=== PATIENT | male | born 1965 | race Caucasian/White ===

== ENCOUNTER 2018-08-31 14:49 | Observation (INO) | payer OTHER ==
[2018-08-31] MEDS ORDERED: NITROGLYCERIN OINT 1 INCH/GM PACKET TOPICAL STA (14:57)
--- NOTE | 2018-08-31 15:02 | ED ---
General Adult HPI - General Stated complaint: Chest pain Time Seen by Provider: 08/31/18 14:50 Source: RN notes reviewed - History of Present Illness Initial comments: This is a 53-year-old male with a past medical history significant for PA with stents, hypertension and a smoking history. Patient states he continues to smoke. Patient comes in today complaining of a 2 hour history of chest pain that radiated up into his left shoulder and down his left arm. Patient states she took nitroglycerin home and it did improve the pain but the pain was different than his normal chest pain was much more significant and he became v trung sweaty with it. Patient also states he short of breath with it. Patient states he got into the emesis a gave more aspirin and nitroglycerin and his pain is completely resolved at this time. Patient denies any palpitations. Patient denies any recent fever chills or cough per patient denies any lightheadedness dizziness or near syncopal episode. Patient denies headache patient denies numbness weakness. Patient denies abdominal pain patient denies nausea vomiting diarrhea. Patient denies any calf tenderness or leg swelling. - Related Data Allergies Allergy/AdvReac Type Severity Reaction Status Date / Time No Known Allergies Allergy Verified 08/31/18 15:11 Review of Systems ROS Statement: Those systems with pertinent positive or pertinent negative responses have been documented in the HPI. ROS Other: All systems not noted in ROS Statement are negative. General Exam - General Exam Comments Initial Comments: GENERAL: Patient is well-developed and well-nourished. Patient is nontoxic and well-hyd rated and is in no acute distress. ENT: Neck is soft and supple. No significant lymphadenopathy is noted. Oropharynx is clear. Moist mucous membranes. Neck has full range of motion without elicit ing any pain. EYES: The sclera were anicteric and conjunctiva were pink and moist. Extraocular m ovements were intact and pupils were equal round and reactive to light. Eyelids were unremarkable. PULMONARY: Unlabored respirations. Good breath sounds bilaterally. No audible rales rhonchi or wheezing was noted. CARDIOVASCULAR: There is a regular rate and rhythm without any murmurs gallops or rubs. ABDOMEN: Soft and nontender with normal bowel sounds. SKIN: Skin is clear with no lesions or rashes and otherwise unremarkable. NEUROLOGIC: Patient is alert and oriented x3. Cranial nerves II through XII are grossly intact. Motor and sensory are also intact. Normal speech, volume and content. Symmetrical smile. MUSCULOSKELETAL: Normal extremities with adequate strength and full range of motion. No lower extremity swelling or edema. No calf tenderness. LYMPHATICS: No significant lymphadenopathy is noted PSYCHIATRIC: Normal psychiatric evaluation. Course Vital Signs 08/31/18 15:04 Temperature 98.3 F Pulse Rate 64 Respiratory 18 Rate Blood Pressure 120/78 O2 Sat by Pulse 100 Oximetry Medical Decision Making - Medical Decision Making EKG shows sinus bradycardia 55 bpm CO interval 152 QRS is 94 Q-T intervals 492 QTC is 470. Patient's EKG shows no ST segment elevation or depression or T wave abnormalities are noted. This patient was a transfer from [facility] for unstable angina however the call ever came to do Dr. even though the physician at Hospital thought there was talking to a physician they did not so I did speak with the vision at the hospital and got an update on the patient. - Lab Data Result diagrams: 08/31/18 15:00 08/31/18 15:00 Lab Results 08/31/18 08/31/18 08/31/18 Range/Units 15:00 15:00 15:00 WBC 9.0 (3.8-10.6) k/uL RBC 4.22 L (4.30-5.90) m/uL Hgb 13.7 (13.0-17.5) gm/dL Hct 41.8 (39.0-53.0) % MCV 99.0 (80.0-100.0) fL MCH 32.6 (25.0-35.0) pg MCHC 32.9 (31.0-37.0) g/dL RDW 14.5 (11.5-15.5) % Plt Count 250 (150-450) k/uL Neutrophils % 70 % Lymphocytes % 21 % Monocytes % 6 % Eosinophils % 2 % Basophils % 0 % Neutrophils # 6.3 (1.3-7.7) k/uL Lymphocytes # 1.9 (1.0-4.8) k/uL Monocytes # 0.5 (0-1.0) k/uL Eosinophils # 0.2 (0-0.7) k/uL Basophils # 0.0 (0-0.2) k/uL PT 10.1 (9.0-12.0) sec INR 0.9 (<1.2) APTT 24.0 (22.0-30.0) sec Sodium 140 (137-145) mmol/L Potassium 4.0 (3.5-5.1) mmol/L Chloride 110 H (98-107) mmol/L Carbon Dioxide 25 (22-30) mmol/L Anion Gap 5 mmol/L BUN 7 L (9-20) mg/dL Creatinine 0.53 L (0.66-1.25) mg/dL Est GFR (CKD-EPI)AfAm >90 (>60 ml/min/1.73 sqM) Est GFR (CKD-EPI)NonAf >90 (>60 ml/min/1.73 sqM) Glucose 85 (74-99) mg/dL Calcium 8.7 (8.4-10.2) mg/dL Magnesium 2.1 (1.6-2.3) mg/dL Total Bilirubin 1.2 (0.2-1.3) mg/dL AST 33 (17-59) U/L ALT 22 (21-72) U/L Alkaline Phosphatase 59 (38-126) U/L Troponin I (0.000-0.034) ng/mL Total Protein 6.6 (6.3-8.2) g/dL Albumin 4.0 (3.5-5.0) g/dL 08/31/18 Range/Units 15:00 WBC (3.8-10.6) k/uL RBC (4.30-5.90) m/uL Hgb (13.0-17.5) gm/dL Hct (39.0-53.0) % MCV (80.0-100.0) fL MCH (25.0-35.0) pg MCHC (31.0-37.0) g/dL RDW (11.5-15.5) % Plt Count (150-450) k/uL Neutrophils % % Lymphocytes % % Monocytes % % Eosinophils % % Basophils % % Neutrophils # (1.3-7.7) k/uL Lymphocytes # (1.0-4.8) k/uL Monocytes # (0-1.0) k/uL Eosinophils # (0-0.7) k/uL Basophils # (0-0.2) k/uL PT (9.0-12.0) sec INR (<1.2) APTT (22.0-30.0) sec Sodium (137-145) mmol/L Potassium (3.5-5.1) mmol/L Chloride (98-107) mmol/L Carbon Dioxide (22-30) mmol/L Anion Gap mmol/L BUN (9-20) mg/dL Creatinine (0.66-1.25) mg/dL Est GFR (CKD-EPI)AfAm (>60 ml/min/1.73 sqM) Est GFR (CKD-EPI)NonAf (>60 ml/min/1.73 sqM) Glucose (74-99) mg/dL Calcium (8.4-10.2) mg/dL Magnesium (1.6-2.3) mg/dL Total Bilirubin (0.2-1.3) mg/dL AST (17-59) U/L ALT (21-72) U/L Alkaline Phosphatase (38-126) U/L Troponin I <0.012 (0.000-0.034) ng/mL Total Protein (6.3-8.2) g/dL Albumin (3.5-5.0) g/dL Disposition Clinical Impression: Unstable angina pectoris Disposition: ADMITTED IP TO THIS HOSP Referrals: Luis Bonilla MD [Primary Care Provider] - 1-2 days Time of Disposition: 16:03
[2018-08-31 15:12] LABS: Basophils % (A) 0 %; Eosinophils # (A) 0.2 k/uL (0-0.7); Eosinophils % (A) 2 %; HCT 41.8 % (39.0-53.0); HGB 13.7 gm/dL (13.0-17.5); Lymphocytes # (A) 1.9 k/uL (1.0-4.8); Lymphocytes % (A) 21 %; MCH 32.6 pg (25.0-35.0); MCHC 32.9 g/dL (31.0-37.0); Mean Platelet Volume 8.6; Monocytes # (A) 0.5 k/uL (0-1.0); Monocytes % (A) 6 %; Neutrophils # (A) 6.3 k/uL (1.3-7.7); Neutrophils % (A) 70 %; Platelet Count 250 k/uL (150-450); RBC 4.22 m/uL (4.30-5.90); RDW 14.5 % (11.5-15.5)
[2018-08-31 15:19] LABS: INR 0.9 (<1.2); Prothrombin Time 10.1 sec (9.0-12.0)
[2018-08-31 15:31] LABS: ALT 22 U/L (21-72); AST 33 U/L (17-59); African American GFR (CKD) >90 (>60 ml/min/1.73 sqM); Alkaline Phosphatase 59 U/L (38-126); Anion Gap 5 mmol/L; Blood Urea Nitrogen 7 mg/dL (9-20); Calcium 8.7 mg/dL (8.4-10.2); Carbon Dioxide 25 mmol/L (22-30); Chloride 110 mmol/L (98-107); Glucose 85 mg/dL (74-99); Magnesium 2.1 mg/dL (1.6-2.3); Sodium 140 mmol/L (137-145); Total Bilirubin 1.2 mg/dL (0.2-1.3); Total Protein 6.6 g/dL (6.3-8.2)
[2018-08-31] MEDS ORDERED: HEPARIN SODIUM,PORCINE 5,000 UNIT/ML 1 ML VIAL IV ONE (16:03)
[2018-08-31] MEDS ORDERED: NITROGLYCERIN SL TABS 0.4 MG TAB SUBLINGUAL PRN (16:04)
[2018-08-31] MEDS ORDERED: HEPARIN SOD,PORK IN 0.45% NACL 25,000 UNIT in 0.45% NACL 1 250ML.BAG IV SCH (16:15)
[2018-08-31] MEDS: NITROGLYCERIN OINT 1 INCH/GM PACKET TOPICAL SCH ×2 (18:32→23:05)
[2018-08-31] MEDS ORDERED: ATORVASTATIN 40 MG TAB PO SCH (21:00)
--- NOTE | 2018-08-31 23:39 | P.HPIM ---
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 Associated with shortness of breath. Pain was radiating to the left shoulder and arm and to the neck. Associated with nausea. Does have s ome dizziness and lightheadedness. No diaphoresis. No source of vomiting. Patient says that he took nitroglycerin at home which did improve the pain. Denied any palpitations. Denied any recent illnesses. No fever no chills. No cough or sputum production. No complaints of abdominal pain. No diarrhea. No dysuria or hematuria. Denied any leg swelling. EKG showed sinus bradycardia. Troponin 2 negative. Review of Systems Constitutional: Patient denies any fever or chills . No generalized weakness or weight loss. Abdomen: Patient denied nausea vomiting and diarrhea and abdominal pain. Cardiovascular: Patient denies any chest pain or short of breath no palpitations. Respiratory: patient denied any cough is from production. No shortness of breath Neurologic: Patient denied any numbness or tingling headache. Musculoskeletal: Patient denies any complaints of joint swelling or deformity. Skin: Negative Psychiatric: Negative Endocrine: No heat or cold intolerance. No recent weight gain. Genitourinary: No dysuria or hematuria. All other 14 point ROS negative except the above Past Medical History Past Medical History: Chest Pain / Angina, COPD, CVA/TIA, Hyperlipidemia, Hypertension, Myocardial Infarction ([place]) History of Any Multi-Drug Resistant Organisms: None Reported Past Surgical History: Heart Catheterization With Stent Additional Past Surgical History / Comment(s): stents placed Past Psychological History: No Psychological Hx Reported Smoking Status: Current every day smoker Past Alcohol Use History: Occasional Past Drug Use History: None Reported Medications and Allergies Home Medications Medication Instructions Recorded Confirmed Type Albuterol Inhaler [Ventolin Hfa 2 puff INHALATION RT-Q4H PRN 08/31/18 08/31/18 History Inhaler] Aspirin EC [Ecotrin Low Dose] 81 mg PO DAILY 08/31/18 08/31/18 History Atorvastatin [Lipitor] 40 mg PO HS 08/31/18 08/31/18 History Clopidogrel [Plavix] 75 mg PO DAILY 08/31/18 08/31/18 History Escitalopram [Lexapro] 10 mg PO DAILY 08/31/18 08/31/18 History Ibuprofen [Motrin] 800 mg PO TID PRN 08/31/18 08/31/18 History Isosorbide Mononitrate ER [Imdur] 60 mg PO DAILY 08/31/18 08/31/18 History Omeprazole 20 mg PO DAILY 08/31/18 08/31/18 History Verapamil HCl 120 mg PO Q12H 08/31/18 08/31/18 History Allergies Allergy/AdvReac Type Severity Reaction Status Date / Time No Known Allergies Allergy Verified 08/31/18 16:29 Physical Exam Vitals: Vital Signs Temp Pulse Resp BP Pulse Ox 08/31/18 15:04 98.3 F 64 18 120/78 100 Intake and Output 08/31/18 08/31/18 08/31/18 06:59 14:59 22:59 Other: Weight 61.235 kg PHYSICAL EXAMINATION: Patient is lying in the bed comfortably, no acute distress, awake alert and oriented.. HEENT: Normocephalic. Neck is supple. Pupils reactive. Nostrils clear. Oral cavity is moist. Ears reveal no drainage. Neck reveals no JVD, carotid bruits, or thyromegaly. CHEST EXAMINATION: Trachea is central. Symmetrical expansion. Lung duong clear to auscultation and percussion. CARDIAC: Normal S1, S2 with no gallops. No murmurs ABDOMEN: Soft. Bowel sounds normal. No organomegaly. No abdominal bruits. Extremities: reveal no edema. No clubbing or cyanosis Neurologically awake, alert, oriented x3 with well-coordinated movements. No focal deficits noted Skin: No rash or skin lesions. Psychiatric: Coperative. Nonsuicidal Musculoskeletal: No joint swelling or deformity. Normal range of motion. Results CBC & Chem 7: 08/31/18 15:00 08/31/18 15:00 Labs: Abnormal Lab Results - Last 24 Hours (Table) 08/31/18 08/31/18 Range/Units 15:00 15:00 RBC 4.22 L (4.30-5.90) m/uL Chloride 110 H (98-107) mmol/L BUN 7 L (9-20) mg/dL Creatinine 0.53 L (0.66-1.25) mg/dL Assessment and Plan Assessment: Unstable angina. History of coronary artery disease and stent placement History of CVA/TIA with mild right upper extremities weakness. Hyperlipidemia Hypertension History of [place] Nicotine addiction and COPD not in exacerbation Occasional alcohol abuse Plan: Patient will be continued on heparin drip. Continue with aspirin and statins. Continue with telemetry monitoring and serial troponins. Cardiology will be consulted. Further recommendations based on the clinical course. Smoking cessation has been counseled extensively. Follow up closely. Time with Patient: Greater than 30
[2018-09-01 02:42] LABS: Cholesterol 134 mg/dL (<200); HDL Cholesterol 77 mg/dL (40-60); LDL Cholesterol,Calculated 39 mg/dL (0-99); Triglycerides 90 mg/dL (<150)
[2018-09-01 07:09] VITALS: RESP 18; TEMP 98.3
[2018-09-01] MEDS ORDERED: PANTOPRAZOLE 40 MG TABLET PO SCH (07:30)
--- NOTE | 2018-09-01 08:28 | P.CRDCN ---
History of Present Illness Consult date: 09/01/18 History of present illness: This is a 53-year-old gentleman with history of ischemic heart disease and previous stent placement about 5 years ago. He claims that he had stent at [facility]. 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 He continued to smoke. He has history of hypertension, hypercholesterolemia. Most of diabetes. Yesterday patient had a chest pain across left side of the chest as if somebody sitting on his chest. The pain went to the left shoulder area and also in the side of his neck. Patient took nitroglycerin at home with some partial relief. Subsequently he went to [facility] and he was transferred here for further evaluation. He was treated with Nitropaste with improvement of his symptoms. His EKGs showed mild T-wave changes in anterior leads. His cardiac enzymes are negative. Patient is given the option of having a cardiac catheterization or a stress test for further evaluation. Patient preferred to have stress test. He was explained the risks and benefits of the procedure. Further recommendations depend upon the findings on the stress test. If the stress test is positive, patient may need cardiac catheterization for definitive diagnosis. Review of Systems REVIEW OF SYSTEMS: CONSTITUTIONAL:. Patient is doing well. No complaints of fever or chills EYES: Denies diplopia, blurring of vision EARS, NOSE, MOUTH, THROAT: Denies headaches, denies sore throat. CARDIOVASCULAR: As per HPI. Patient has history of previous stent placement RESPIRATORY: Denies shortness of breath, denies cough. GASTROINTESTINAL: Denies change in appetite, denies abdominal pain, denies diarrhea GENITOURINARY: Denies hematuria, denies infections. MUSKULOSKELETAL: Denies pain, denies swelling. Denies any cramps or claudication INTEGUMENTARY: Denies rash, denies eczema. NEUROLOGICAL: Denies focal weakness, or visual disturbance. Denies any dizziness or syncope PSYCHIATRIC: Denies anxiety, denies depression. HEMATOLOGIC/LYMPHATIC: Denies any bleeding, denies enlarged lymph nodes. Past Medical History Past Medical History: Chest Pain / Angina, COPD, CVA/TIA, Hyperlipidemia, Hypertension, Myocardial Infarction ([place]) Additional Past Medical History / Comment(s): TIA, Last Myocardial Infarction Date:: 04/2012 History of Any Multi-Drug Resistant Organisms: None Reported Past Surgical History: Heart Catheterization With Stent Additional Past Surgical History / Comment(s): stents placed Past Anesthesia/Blood Transfusion Reactions: No Reported Reaction Date of Last Stent Placement:: 04/2012 Past Psychological History: No Psychological Hx Reported Smoking Status: Current every day smoker Past Alcohol Use History: Occasional Past Drug Use History: None Reported Medications and Allergies Home Medications Medication Instructions Recorded Confirmed Type Albuterol Inhaler [Ventolin Hfa 2 puff INHALATION RT-Q4H PRN 08/31/18 08/31/18 History Inhaler] Aspirin EC [Ecotrin Low Dose] 81 mg PO DAILY 08/31/18 08/31/18 History Atorvastatin [Lipitor] 40 mg PO HS 08/31/18 08/31/18 History Clopidogrel [Plavix] 75 mg PO DAILY 08/31/18 08/31/18 History Escitalopram [Lexapro] 10 mg PO DAILY 08/31/18 08/31/18 History Ibuprofen [Motrin] 800 mg PO TID PRN 08/31/18 08/31/18 History Isosorbide Mononitrate ER [Imdur] 60 mg PO DAILY 08/31/18 08/31/18 History Omeprazole 20 mg PO DAILY 08/31/18 08/31/18 History Verapamil HCl 120 mg PO Q12H 08/31/18 08/31/18 History Allergies Allergy/AdvReac Type Severity Reaction Status Date / Time No Known Allergies Allergy Verified 08/31/18 16:29 Physical Exam Vitals: Vital Signs Temp Pulse Pulse Resp BP BP Pulse Ox 09/01/18 07:08 98.3 F 55 L 18 110/70 99 09/01/18 03:29 98.5 F 58 L 16 117/69 96 08/31/18 23:15 98.2 F 53 L 16 113/66 97 08/31/18 18:03 98.2 F 59 L 18 123/73 98 08/31/18 17:30 63 18 113/65 99 08/31/18 15:04 98.3 F 64 18 120/78 100 Intake and Output 08/31/18 09/01/18 09/01/18 22:59 06:59 14:59 Intake Total 51.926 Balance 51.926 Intake: Intake, IV Titration 51.926 Amount Heparin Sod,Pork in 0.45% 51.926 NaCl 25,000 unit In 0.45 % NaCl 1 250ml.bag @ 12 UNITS/KG/HR 7.348 mls/hr IV .Q24H [facility] Rx#: [id number] Other: # Voids 1 Weight 61.235 kg GENERAL EXAM: Patient is alert and oriented and doesn't appear to be in any acute distress HEENT: Normocephalic. Normal reaction of pupils, equal size, normal range of extraocular motion. No erythema or exudates in the throat. NECK: No masses, no nuchal rigidity. CHEST: No chest wall deformity. LUNGS: Equal air entry with no crackles or wheeze. HEART: S1 and S2 normal. Diminished air exchange ABDOMEN: No hepatosplenomegaly, normal bowel sounds, no guarding or rigidity. SKIN: No rashes CENTRAL NERVOUS SYSTEM: No focal deficits. EXTREMITIES: No cyanosis, clubbing or edema. Results 08/31/18 15:00 08/31/18 15:00 Cardiac Enzymes 08/31/18 08/31/18 08/31/18 Range/Units 15:00 15:00 21:09 AST 33 (17-59) U/L Troponin I <0.012 <0.012 (0.000-0.034) ng/mL 09/01/18 Range/Units 02:16 AST (17-59) U/L Troponin I <0.012 (0.000-0.034) ng/mL Coagulation 08/31/18 08/31/18 09/01/18 Range/Units 15:00 22:39 06:58 PT 10.1 (9.0-12.0) sec APTT 24.0 34.9 H 35.6 H (22.0-30.0) sec Lipids 09/01/18 Range/Units 02:16 Triglycerides 90 (<150) mg/dL Cholesterol 134 (<200) mg/dL HDL Cholesterol 77 H (40-60) mg/dL CBC 08/31/18 Range/Units 15:00 WBC 9.0 (3.8-10.6) k/uL RBC 4.22 L (4.30-5.90) m/uL Hgb 13.7 (13.0-17.5) gm/dL Hct 41.8 (39.0-53.0) % Plt Count 250 (150-450) k/uL Comprehensive Metabolic Panel 08/31/18 Range/Units 15:00 Sodium 140 (137-145) mmol/L Potassium 4.0 (3.5-5.1) mmol/L Chloride 110 H (98-107) mmol/L Carbon Dioxide 25 (22-30) mmol/L BUN 7 L (9-20) mg/dL Creatinine 0.53 L (0.66-1.25) mg/dL Glucose 85 (74-99) mg/dL Calcium 8.7 (8.4-10.2) mg/dL AST 33 (17-59) U/L ALT 22 (21-72) U/L Alkaline Phosphatase 59 (38-126) U/L Total Protein 6.6 (6.3-8.2) g/dL Albumin 4.0 (3.5-5.0) g/dL Current Medications Generic Name Dose Route Start Last Admin Trade Name Freq PRN Reason Stop Dose Admin Aspirin 325 mg 09/01/18 09:00 Aspirin PO DAILY [facility] Atorvastatin Calcium 40 mg 08/31/18 21:00 08/31/18 20:35 Lipitor PO 40 mg HS [facility] Administration Clopidogrel Bisulfate 75 mg 09/01/18 09:00 Plavix PO DAILY [facility] Escitalopram Oxalate 10 mg 09/01/18 09:00 Lexapro PO DAILY [facility] Heparin Sodium/Sodium Chloride 250 mls @ 7.348 mls/hr 08/31/18 16:15 08/31/18 23:45 25,000 unit/ Sodium Chloride IV 15 units/kg/hr .Q24H [facility] 9.185 mls/hr Titration Protocol 12 UNITS/KG/HR Isosorbide Mononitrate 60 mg 09/01/18 09:00 Imdur PO DAILY [facility] Nitroglycerin 0.4 mg 08/31/18 16:04 Nitrostat SUBLINGUAL Q5M PRN Chest Pain Pantoprazole Sodium 40 mg 09/01/18 07:30 Protonix PO AC-BRKFST [facility] Intake and Output 08/31/18 09/01/18 09/01/18 22:59 06:59 14:59 Intake Total 51.926 Balance 51.926 Intake: Intake, IV Titration 51.926 Amount Heparin Sod,Pork in 0.45% 51.926 NaCl 25,000 unit In 0.45 % NaCl 1 250ml.bag @ 12 UNITS/KG/HR 7.348 mls/hr IV .Q24H [facility] Rx#: [id number] Other: # Voids 1 Weight 61.235 kg 08/31/18 15:00 08/31/18 15:00 EKG Interpretations (text) Sinus rhythm with some T-wave changes in anterior leads Assessment and Plan (1) Chest pain Current Visit: Yes Status: Acute Code(s): R07.9 - CHEST PAIN, UNSPECIFIED SNOMED Code(s): 95404736 (2) Ischemic heart disease Current Visit: Yes Status: Acute Code(s): I25.9 - CHRONIC ISCHEMIC HEART DISEASE, UNSPECIFIED SNOMED Code(s): 305834622 (3) Essential hypertension Current Visit: Yes Status: Acute Code(s): I10 - ESSENTIAL (PRIMARY) HYPERTENSION SNOMED Code(s): 43299894 (4) Hypercholesterolemia Current Visit: Yes Status: Acute Code(s): E78.00 - PURE HYPERCHOLESTEROLEMIA, UNSPECIFIED SNOMED Code(s): 86590605 (5) Smoking Current Visit: Yes Status: Acute Code(s): F17.200 - NICOTINE DEPENDENCE, UNSPECIFIED, UNCOMPLICATED SNOMED Code(s): 26354718 Plan: Patient's symptoms are suggestive of possible angina. So far cardiac enzymes have been negative. Patient is given the option of having cardiac catheterization or a stress test. Patient preferred to have stress test. Patient was explained the benefits and risks of each procedure. Further comminution depend upon the clinical course. We'll also get a echocardiogram and a repeat EKG
[2018-09-01] MEDS ORDERED: ISOSORBIDE MONONITRATE ER 60 MG TAB.ER.24H PO SCH (09:00)
[2018-09-01] MEDS ORDERED: ESCITALOPRAM 10 MG TAB PO SCH (09:00)
[2018-09-01] MEDS ORDERED: CLOPIDOGREL 75 MG TAB PO SCH (09:00)
[2018-09-01] MEDS ORDERED: ASPIRIN 325 MG TAB PO SCH (09:00)
--- NOTE | 2018-09-01 10:42 | ECHOF ---
Referral Reason:Chest pain and cardiomyopathy MEASUREMENTS -------- HEIGHT: 167.6 cm WEIGHT: 61.2 kg BP: 110/70 RVIDd: 2.8 cm (< 3.3) IVSd: 1.1 cm (0.6 - 1.1) LVIDd: 4.9 cm (3.9 - 5.3) LVPWd: 0.9 cm (0.6 - 1.1) IVSs: 1.3 cm LVIDs: 3.5 cm LVPWs: 1.5 cm LA Diam: 3.3 cm (2.7 - 3.8) LAESV Index (A-L): 27.23 ml/m Ao Diam: 3.2 cm (2.0 - 3.7) AV Cusp: 2.2 cm (1.5 - 2.6) MV EXCURSION: 15.488 mm (> 18.000) MV EF SLOPE: 53 mm/s (70 - 150) EPSS: 1.4 cm MV E Diaz: 0.97 m/s MV DecT: 194 ms MV A Diaz: 0.96 m/s MV E/A Ratio: 1.01 RAP: 5.00 mmHg RVSP: 24.94 mmHg FINDINGS -------- Sinus rhythm. This was a technically good study. The left ventricular size is normal. There is borderline concentric left ventricular hypertrophy. Overall left ventricular systolic function is normal with, an EF between 55 - 60 %. The right ventricle is normal in size. Normal LA size by volume 22+/-6 ml/m2. The right atrium is normal in size. Interatrial and interventricular septum intact. The aortic valve is trileaflet and appears structurally normal. The mitral valve is normal. Mild tricuspid regurgitation present. Right ventricular systolic pressure is normal at < 35 mmHg. The pulmonic valve was not well visualized. The aortic root size is normal. Normal inferior vena cava with normal inspiratory collapse consistent with estimated right atrial pre ssure of 5 mmHg. There is no pericardial effusion. CONCLUSIONS -------- 1. Sinus rhythm. 2. This was a technically good study. 3. The left ventricular size is normal. 4. There is borderline concentric left ventricular hypertrophy. 5. Overall left ventricular systolic function is normal with, an EF between 55 - 60 %. 6. The right ventricle is normal in size. 7. Normal LA size by volume 22+/-6 ml/m2. 8. The right atrium is normal in size. 9. Interatrial and interventricular septum intact. 10. The aortic valve is trileaflet and appears structurally normal. 11. The mitral valve is normal. 12. Mild tricuspid regurgitation present. 13. Right ventricular systolic pressure is normal at < 35 mmHg. 14. The pulmonic valve was not well visualized. 15. The aortic root size is normal. 16. Normal inferior vena cava with normal inspiratory collapse consistent with estimated right atrial pressure of 5 mmHg. 17. There is no pericardial effusion. MASTER PILOT: Mary Yeung RDCS
[2018-09-01] MEDS ORDERED: AMINOPHYLLINE 500 MG/20 ML VIAL IV PRN (11:03)
[2018-09-01] MEDS ORDERED: CAFFEINE CITRATE 60 MG/3 ML VIAL IV PRN (11:03)
[2018-09-01] MEDS ORDERED: REGADENOSON 0.4 MG/5 ML SYRINGE IV ONE (11:03)
--- NOTE | 2018-09-01 11:50 | EST ---
EXERCISE STRESS DATE OF SERVICE: 09/01/2018 AGE: 53 SEX: Male HT: 66" WT: 135 pounds PROTOCOL: Lexiscan Cardiolite STAGE: DURATION OF EXERCISE: HEART RATE REST: 55 BLOOD PRESSURE REST: 119/70 MAXIMUM HEART RATE ACHIEVED: 85 MAXIMUM BLOOD PRESSURE: 119/70 85% MPHR: 100% MPHR: METS: INDICATIONS: Unstable angina. CLINICAL INFORMATION: Mr. Malone was referred for a stress test from the observation unit. Initially, he underwent an exercise Cardiolite stress test but he was unable to exercise for greater than 6 minutes when he became very dizzy and lightheaded. There was no ECG evidence for ischemia. No arrhythmias were noted. There may have been mild drop in his blood pressure, but no significant changes were noted. Therefore, the stress test was converted to a Lexiscan Cardiolite stress test. Baseline 12-lead ECG showed normal sinus rhythm with normal cardiac intervals. The patient received Lexiscan infusion per protocol. Heart rate and blood pressure remained stable. Nuclear portion of the stress test will be reported separately. There was no evidence for ischemia and no arrhythmias. MMODL / IJN: [id number] /
--- NOTE | 2018-09-01 12:18 | NM ---
EXAMINATION TYPE: NM stress lexiscan cardiolite DATE OF EXAM: 09/01/2018 COMPARISON: NONE HISTORY: Chest pain TECHNIQUE: After the intravenous administration of 9.69 mCi Tc 99m Sestamibi - Cardiolite resting SP ECT images acquired 45 minutes post injection. The patient received 0.4mg Lexiscan, 25.8 mCi Tc 99m Sestamibi - Stress images obtained [address] injection FINDINGS: Review of stress and rest SPECT images demonstrates no distinct perfusion abnormality. Gated analysi s shows normal wall motion with an estimated left ventricular ejection fraction of 58 %. TID is calcu lated within normal limits at 1.0. IMPRESSION: No scintigraphic evidence for reversible ischemia.
[2018-09-01 12:20] VITALS: BP 121/74; PULSE 52
== END 2018-09-01 14:50 | disposition home or self-care (01) ==
LOC: EC 14:49 → 1SOBS 16:04
PROVIDERS: ADMIT Internal Medicine; ATTEND Internal Medicine
DX: I25.110 Atherosclerotic heart disease of native coronary artery with unstable angina pectoris (principal); Z95.5 Presence of coronary angioplasty implant and graft; I25.2 Old myocardial infarction; I69.351 Hemiplegia and hemiparesis following cerebral infarction affecting right dominant side; I10 Essential (primary) hypertension; E78.5 Hyperlipidemia, unspecified; E78.00 Pure hypercholesterolemia, unspecified; R00.1 Bradycardia, unspecified; J44.9 Chronic obstructive pulmonary disease, unspecified; F10.10 Alcohol abuse, uncomplicated; F17.200 Nicotine dependence, unspecified, uncomplicated; Z79.899 Other long term (current) drug therapy; Z79.82 Long term (current) use of aspirin; Z79.02 Long term (current) use of antithrombotics/antiplatelets
CPT/HCPCS: 96366 ×3; 96376; 96365; 99285; 36415; 93005; 93017; 93306; 80061; 80053; 83735; 84484 ×2; 85025; 85610; 85730 ×2; 78452; G0378 ×2; A9500; J1644 ×2; J2785

== ENCOUNTER 2018-11-15 10:50 | Observation (INO) | payer OTHER ==
[2018-11-15 11:03] VITALS: TEMP 98.5
[2018-11-15] MEDS ORDERED: NITROGLYCERIN OINT 1 INCH/GM PACKET TOPICAL STA (11:24)
[2018-11-15] MEDS ORDERED: ASPIRIN 81 MG PO STA (11:24)
[2018-11-15 11:43] LABS: Basophils % (A) 0 %; Eosinophils # (A) 0.1 k/uL (0-0.7); Eosinophils % (A) 1 %; HCT 43.5 % (39.0-53.0); HGB 14.9 gm/dL (13.0-17.5); Lymphocytes # (A) 1.6 k/uL (1.0-4.8); Lymphocytes % (A) 19 %; MCH 33.6 pg (25.0-35.0); MCHC 34.3 g/dL (31.0-37.0); MCV 97.9 fL (80.0-100.0); Mean Platelet Volume 8.3; Monocytes # (A) 0.5 k/uL (0-1.0); Monocytes % (A) 6 %; Neutrophils # (A) 6.2 k/uL (1.3-7.7); Neutrophils % (A) 72 %; Platelet Count 260 k/uL (150-450); RBC 4.45 m/uL (4.30-5.90); RDW 15.5 % (11.5-15.5); WBC 8.6 k/uL (3.8-10.6)
[2018-11-15 11:51] LABS: ALT 31 U/L (21-72); AST 32 U/L (17-59); African American GFR (CKD) >90 (>60 ml/min/1.73 sqM); Albumin 4.2 g/dL (3.5-5.0); Alkaline Phosphatase 64 U/L (38-126); Anion Gap 6 mmol/L; Blood Urea Nitrogen 14 mg/dL (9-20); Calcium 9.2 mg/dL (8.4-10.2); Carbon Dioxide 26 mmol/L (22-30); Chloride 107 mmol/L (98-107); Glucose 88 mg/dL (74-99); Magnesium 1.9 mg/dL (1.6-2.3); Potassium 4.8 mmol/L (3.5-5.1); Sodium 139 mmol/L (137-145); Total Bilirubin 0.7 mg/dL (0.2-1.3)
--- NOTE | 2018-11-15 12:02 | ED ---
General Adult HPI - General Chief complaint: Chest Pain Stated complaint: chest pain Time Seen by Provider: 11/15/18 11:20 Source: patient, RN notes reviewed Mode of arrival: ambulatory Limitations: no limitations - History of Present Illness Initial comments: This a 53-year-old male who presents emergency department with past medical history significant for previous heart attacks. Patient also states he has a strong family history of heart disease. Patient is a smoker has high blood pressure high cholesterol. Patient states today he started having chest pain lasts for approximate hour. Patient states he was short of breath and the pain radiated to his right arm and right jaw. Patient denied any diaphoretic episodes. Patient denies any nausea. Patient had abdominal pain. Patient states this did seem like the same pain he had with his previous heart issues. Patient states the last time he was here they wanted to a cardiac catheteriza tion but he refused so he distress test. Patient denies any abdominal pain today. Patient denies any lightheadedness or dizziness. Patient denies any headache patient denies numbness weakness. Currently the patient denies any chest pain. Patient also mentioned earlier that he had become extremely lightheaded when he had chest pain and it is since resolved as well. - Related Data Home Medications Medication Instructions Recorded Confirmed Albuterol Inhaler [Ventolin Hfa 2 puff INHALATION RT-Q4H PRN 08/31/18 11/15/18 Inhaler] Aspirin EC [Ecotrin Low Dose] 81 mg PO DAILY 08/31/18 11/15/18 Atorvastatin [Lipitor] 40 mg PO HS 08/31/18 11/15/18 Escitalopram [Lexapro] 10 mg PO DAILY 08/31/18 11/15/18 Ibuprofen [Motrin] 800 mg PO TID PRN 08/31/18 11/15/18 Isosorbide Mononitrate ER [Imdur] 60 mg PO DAILY 08/31/18 11/15/18 Omeprazole 20 mg PO DAILY 08/31/18 11/15/18 Verapamil HCl 120 mg PO Q12H 08/31/18 11/15/18 Allergies Allergy/AdvReac Type Severity Reaction Status Date / Time No Known Allergies Allergy Verified 11/15/18 11:31 Review of Systems ROS Statement: Those systems with pertinent positive or pertinent negative responses have been documented in the HPI. ROS Other: All systems not noted in ROS Statement are negative. Past Medical History Past Medical History: Chest Pain / Angina, COPD, CVA/TIA, Hyperlipidemia, Hypertension, Myocardial Infarction ([place]) Additional Past Medical History / Comment(s): TIA, Last Myocardial Infarction Date:: 04/2012 History of Any Multi-Drug Resistant Organisms: None Reported Past Surgical History: Heart Catheterization With Stent Additional Past Surgical History / Comment(s): stents placed Past Anesthesia/Blood Transfusion Reactions: No Reported Reaction Date of Last Stent Placement:: 04/2012 Past Psychological History: No Psychological Hx Reported Smoking Status: Current every day smoker Past Alcohol Use History: Occasional Past Drug Use History: None Reported General Exam - General Exam Comments Initial Comments: GENERAL: Patient is well-developed and well-nourished. Patient is nontoxic and well- hydrated and is mild distress. ENT: Neck is soft and supple. No significant lymphadenopathy is noted. Oropharynx is clear. Moist mucous membranes. Neck has full range of motion without elicit ing any pain. EYES: The sclera were anicteric and conjunctiva were pink and moist. Extraocular mo vements were intact and pupils were equal round and reactive to light. Eyelids were unremarkable. PULMONARY: Unlabored respirations. Good breath sounds bilaterally. No audible rales rhonchi or wheezing was noted. CARDIOVASCULAR: There is a regular rate and rhythm without any murmurs gallops or rubs. ABDOMEN: Soft and nontender with normal bowel sounds. No palpable organomegaly was noted. There is no palpable pulsatile mass. SKIN: Skin is clear with no lesions or rashes and otherwise unremarkable. NEUROLOGIC: Patient is alert and oriented x3. Cranial nerves II through XII are grossly intact. Motor and sensory are also intact. Normal speech, volume and content. Symmetrical smile. MUSCULOSKELETAL: Normal extremities with adequate strength and full range of motion. No lower extremity swelling or edema. No calf tenderness. LYMPHATICS: No significant lymphadenopathy is noted PSYCHIATRIC: Normal psychiatric evaluation. Limitations: no limitations Course Vital Signs 11/15/18 11/15/18 11/15/18 11:00 11:30 12:00 Temperature 98.5 F Pulse Rate 70 64 60 Respiratory 18 18 18 Rate Blood Pressure 119/81 119/81 106/69 O2 Sat by Pulse 97 99 99 Oximetry 11/15/18 12:30 Temperature Pulse Rate 58 L Respiratory 16 Rate Blood Pressure 111/81 O2 Sat by Pulse 97 Oximetry Medical Decision Making - Medical Decision Making EKG shows normal sinus rhythm at 64 bpm [place] interval 256 QRS is 88 QT interval 438 QTC is 451. Patient's EKG shows no ST segment elevation or depression or T wave abnormalities are noted. Chest x-ray shows no acute abnormality. Patient received heparin because of the unstable angina picture. I spoke with [facility] hospitalist and he agreed to accept the patient admitted the patient and wrote admitting orders. I consult cardiology and continue the heparin and aspirin and Nitropaste on the floor - Lab Data Result diagrams: 11/15/18 11:05 11/15/18 11:05 Lab Results 11/15/18 11/15/18 11/15/18 Range/Units 11:05 11:05 11:05 WBC 8.6 (3.8-10.6) k/uL RBC 4.45 (4.30-5.90) m/uL Hgb 14.9 (13.0-17.5) gm/dL Hct 43.5 (39.0-53.0) % MCV 97.9 (80.0-100.0) fL MCH 33.6 (25.0-35.0) pg MCHC 34.3 (31.0-37.0) g/dL RDW 15.5 (11.5-15.5) % Plt Count 260 (150-450) k/uL Neutrophils % 72 % Lymphocytes % 19 % Monocytes % 6 % Eosinophils % 1 % Basophils % 0 % Neutrophils # 6.2 (1.3-7.7) k/uL Lymphocytes # 1.6 (1.0-4.8) k/uL Monocytes # 0.5 (0-1.0) k/uL Eosinophils # 0.1 (0-0.7) k/uL Basophils # 0.0 (0-0.2) k/uL PT 10.2 (9.0-12.0) sec INR 0.9 (<1.2) APTT 23.2 (22.0-30.0) sec Sodium 139 (137-145) mmol/L Potassium 4.8 (3.5-5.1) mmol/L Chloride 107 (98-107) mmol/L Carbon Dioxide 26 (22-30) mmol/L Anion Gap 6 mmol/L BUN 14 (9-20) mg/dL Creatinine 0.66 (0.66-1.25) mg/dL Est GFR (CKD-EPI)AfAm >90 (>60 ml/min/1.73 sqM) Est GFR (CKD-EPI)NonAf >90 (>60 ml/min/1.73 sqM) Glucose 88 (74-99) mg/dL Calcium 9.2 (8.4-10.2) mg/dL Magnesium 1.9 (1.6-2.3) mg/dL Total Bilirubin 0.7 (0.2-1.3) mg/dL AST 32 (17-59) U/L ALT 31 (21-72) U/L Alkaline Phosphatase 64 (38-126) U/L Troponin I (0.000-0.034) ng/mL Total Protein 7.0 (6.3-8.2) g/dL Albumin 4.2 (3.5-5.0) g/dL 11/15/18 Range/Units 11:05 WBC (3.8-10.6) k/uL RBC (4.30-5.90) m/uL Hgb (13.0-17.5) gm/dL Hct (39.0-53.0) % MCV (80.0-100.0) fL MCH (25.0-35.0) pg MCHC (31.0-37.0) g/dL RDW (11.5-15.5) % Plt Count (150-450) k/uL Neutrophils % % Lymphocytes % % Monocytes % % Eosinophils % % Basophils % % Neutrophils # (1.3-7.7) k/uL Lymphocytes # (1.0-4.8) k/uL Monocytes # (0-1.0) k/uL Eosinophils # (0-0.7) k/uL Basophils # (0-0.2) k/uL PT (9.0-12.0) sec INR (<1.2) APTT (22.0-30.0) sec Sodium (137-145) mmol/L Potassium (3.5-5.1) mmol/L Chloride (98-107) mmol/L Carbon Dioxide (22-30) mmol/L Anion Gap mmol/L BUN (9-20) mg/dL Creatinine (0.66-1.25) mg/dL Est GFR (CKD-EPI)AfAm (>60 ml/min/1.73 sqM) Est GFR (CKD-EPI)NonAf (>60 ml/min/1.73 sqM) Glucose (74-99) mg/dL Calcium (8.4-10.2) mg/dL Magnesium (1.6-2.3) mg/dL Total Bilirubin (0.2-1.3) mg/dL AST (17-59) U/L ALT (21-72) U/L Alkaline Phosphatase (38-126) U/L Troponin I <0.012 (0.000-0.034) ng/mL Total Protein (6.3-8.2) g/dL Albumin (3.5-5.0) g/dL Critical Care Time Critical Care Time: Yes Total Critical Care Time: 35 Disposition Clinical Impression: Unstable angina pectoris Disposition: ADMITTED IP TO THIS HOSP Referrals: Luis Bonilla MD [Primary Care Provider] - 1-2 days Time of Disposition: 13:25
--- NOTE | 2018-11-15 12:12 | XR ---
EXAMINATION TYPE: XR chest 2V DATE OF EXAM: 11/15/2018 COMPARISON: 10/10/2012 INDICATION: Chest pain TECHNIQUE: Frontal and lateral views of the chest are obtained. FINDINGS: The heart size is normal. The pulmonary vasculature is normal. The lungs are clear. IMPRESSION: 1. No acute pulmonary process.
[2018-11-15 12:22] LABS: INR 0.9 (<1.2); Partial Thromboplastin Time 23.2 sec (22.0-30.0); Prothrombin Time 10.2 sec (9.0-12.0)
[2018-11-15] MEDS ORDERED: HEPARIN SODIUM,PORCINE 5,000 UNIT/ML 1 ML VIAL IV ONE (13:23)
[2018-11-15] MEDS ORDERED: HEPARIN SOD,PORK IN 0.45% NACL 25,000 UNIT in 0.45% NACL 1 250ML.BAG IV SCH (13:30)
[2018-11-15] MEDS ORDERED: NITROGLYCERIN SL TABS 0.4 MG TAB SUBLINGUAL PRN (13:47)
--- NOTE | 2018-11-15 15:55 | P.CRDCN ---
History of Present Illness History of present illness: This is a pleasant 53-year-old male past medical history significant for coronary artery disease status post revascularization 3-5 years ago at [facility] exact details unavailable, hypertension, dyslipidemia, COPD and chronic nicotine dependence. 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 We have asked him in consultation secondary to chest discomfort. He states today while driving to [place] he felt a heavy pressure sensation in the midsternal region. He also felt a throbbing pain in the right jaw his comfort down his left leg, shortness of breath and weakness. He states he used his inhaler and took 2 sublingual nitroglycerin and his symptoms subsided. He was recently admitted to the hospital in August of this year with similar type symptoms and at that time was advised cardiac catheterization. However the patient declined at that time and underwent a Lexiscan stress test which is negative for reversible ischemia. Echocardiogram obtained at that time revealed preserved LV systolic function with ejection fraction 55-60%. At that time he did have some ST changes in the anterior leads. EKG on admission reveals sinus mechanism with no acute ST or T wave abnormalities noted on this admission. Chest x-ray is negative for an acute cardiopulmonary process. Laboratory data reviewed, cardiac enzymes negative 1. He is seen and examined sitting up in no acute distress. He denies any further symptoms of chest discomfort. At the time of my exam: CONSTITUTIONAL: Denies fever. Denies chills. EYES: Denies blurred vision. Denies vision changes. Denies eye pain. EARS, NOSE, MOUTH & THROAT: Denies headache. Denies sore throat. Denies ear pain. CARDIOVASCULAR: Denies chest pain. Denies shortness of breath. Denies orthopnea. Denies PND. Denies palpitations. RESPIRATORY: Denies cough. GASTROINTESTINAL: Denies abdominal pain. Denies diarrhea. Denies constipation. Denies nausea. Denies vomiting. MUSCULOSKELETAL: Denies myalgias. INTEGUMENTARY: Denies pruitis. Denies rash. NEUROLOGIC: Denies numbness. Denies tingling. Denies weakness. PSYCHIATRIC: Denies anxiety. Denies depression. ENDOCRINE: Denies fatigue. Denies weight change. Denies polydipsia. Denies polyurina. GENITOURINARY: Denies burning, hematuria or urgency with micturation. HEMATOLOGIC: Denies history of anemia. Denies bleeding. Blood pressure 105/72 heart rate 54 afebrile maintaining oxygen saturation on room air GENERAL: This is a 53-year-old male in no apparent distress at the time of my examination. HEENT: Head is atraumatic, normocephalic. Pupils are equal, round. Sclerae anicteric. Conjunctivae are clear. Mucous membranes of the mouth are moist. Neck is supple. There is no jugular venous distention. No carotid bruit is heard. LUNGS: Clear to auscultation no wheezes, rales or rhonchi. No chest wall tenderness is noted on palpation or with deep breathing. Diminished bilaterally. HEART: Regular rate and rhythm without murmurs, rubs or gallops. S1 and S2 heard. ABDOMEN: Soft, nontender. Bowel sounds are heard. No organomegaly noted. EXTREMITIES: No evidence of peripheral edema and no calf tenderness noted. VASCULAR: Radial and dorsalis pedis pulses palpated, no evidence of clubbing. NEUROLOGIC: Patient is awake, alert and oriented x3. ASSESSMENT Chest pain, atypical. History of underlying coronary artery disease Hypertension Dyslipidemia COPD Chronic nicotine dependence PLAN Continue to obtain serial cardiac enzymes to rule out an acute event. Resume atorvastatin, Imdur, verapamil and aspirin as previously ordered. We will continue to monitor closely for symptoms of angina. If he has any further symptoms of chest discomfort or change in his troponin we will consider coronary angiography. Further recommendations to follow based upon clinical course. Smoking cessation highly recommended. Thank you kindly for this consultation. Nurse Practitioner note has been reviewed, I agree with a documented findings and plan of care. Patient was seen and examined. Past Medical History Past Medical History: Coronary Artery Disease (CAD), Chest Pain / Angina, COPD, CVA/TIA, Hyperlipidemia, Hypertension, Myocardial Infarction ([place]), Osteoarthritis ([place]) Additional Past Medical History / Comment(s): CVA with R sided weakness/occasionally R leg "gives out" and pt falls, TIAs, arthritis in upper back/chronic pain, Last Myocardial Infarction Date:: 04/2012 History of Any Multi-Drug Resistant Organisms: None Reported Past Surgical History: Heart Catheterization With Stent Additional Past Surgical History / Comment(s): PC Past Anesthesia/Blood Transfusion Reactions: No Reported Reaction Date of Last Stent Placement:: 04/2012 Smoking Status: Current every day smoker - Past Family History Father Family Medical History: Cancer Additional Family Medical History / Comment(s): Father had lung cancer and at the age of 67yrs. He was a smoker. Medications and Allergies Home Medications Medication Instructions Recorded Confirmed Type Albuterol Inhaler [Ventolin Hfa 2 puff INHALATION RT-Q4H PRN 08/31/18 11/15/18 History Inhaler] Aspirin EC [Ecotrin Low Dose] 81 mg PO DAILY 08/31/18 11/15/18 History Atorvastatin [Lipitor] 40 mg PO HS 08/31/18 11/15/18 History Escitalopram [Lexapro] 10 mg PO DAILY 08/31/18 11/15/18 History Ibuprofen [Motrin] 800 mg PO TID PRN 08/31/18 11/15/18 History Isosorbide Mononitrate ER [Imdur] 60 mg PO DAILY 08/31/18 11/15/18 History Omeprazole 20 mg PO DAILY 08/31/18 11/15/18 History Verapamil HCl 120 mg PO Q12H 08/31/18 11/15/18 History Allergies Allergy/AdvReac Type Severity Reaction Status Date / Time No Known Allergies Allergy Verified 11/15/18 11:31 Physical Exam Vitals: Vital Signs Temp Pulse Resp BP Pulse Ox 11/15/18 15:30 63 17 115/79 98 11/15/18 15:00 55 L 16 115/82 99 11/15/18 14:30 54 L 18 113/70 100 11/15/18 14:00 54 L 16 105/72 98 11/15/18 13:30 17 108/79 98 11/15/18 12:30 58 L 16 111/81 97 11/15/18 12:00 60 18 106/69 99 11/15/18 11:30 64 18 119/81 99 11/15/18 11:00 98.5 F 70 18 119/81 97 Intake and Output 11/15/18 11/15/18 11/15/18 06:59 14:59 22:59 Other: Weight 61.235 kg Results 11/15/18 11:05 11/15/18 11:05 Cardiac Enzymes 11/15/18 11/15/18 Range/Units 11:05 11:05 AST 32 (17-59) U/L Troponin I <0.012 (0.000-0.034) ng/mL Coagulation 11/15/18 Range/Units 11:05 PT 10.2 (9.0-12.0) sec APTT 23.2 (22.0-30.0) sec CBC 11/15/18 Range/Units 11:05 WBC 8.6 (3.8-10.6) k/uL RBC 4.45 (4.30-5.90) m/uL Hgb 14.9 (13.0-17.5) gm/dL Hct 43.5 (39.0-53.0) % Plt Count 260 (150-450) k/uL Comprehensive Metabolic Panel 11/15/18 Range/Units 11:05 Sodium 139 (137-145) mmol/L Potassium 4.8 (3.5-5.1) mmol/L Chloride 107 (98-107) mmol/L Carbon Dioxide 26 (22-30) mmol/L BUN 14 (9-20) mg/dL Creatinine 0.66 (0.66-1.25) mg/dL Glucose 88 (74-99) mg/dL Calcium 9.2 (8.4-10.2) mg/dL AST 32 (17-59) U/L ALT 31 (21-72) U/L Alkaline Phosphatase 64 (38-126) U/L Total Protein 7.0 (6.3-8.2) g/dL Albumin 4.2 (3.5-5.0) g/dL Current Medications Generic Name Dose Route Start Last Admin Trade Name Freq PRN Reason Stop Dose Admin Aspirin 325 mg 11/16/18 09:00 Aspirin PO DAILY [facility] Heparin Sodium/Sodium Chloride 250 mls @ 7.348 mls/hr 11/15/18 13:30 11/15/18 13:50 25,000 unit/ Sodium Chloride IV 12 units/kg/hr .Q24H [facility] 7.348 mls/hr Administration Protocol 12 UNITS/KG/HR Nitroglycerin 0.4 mg 11/15/18 13:47 Nitrostat SUBLINGUAL Q5M PRN Chest Pain Nitroglycerin 1 inch 11/15/18 18:00 Nitro-Bid Oint TOPICAL Q6HR [facility] Intake and Output 11/15/18 11/15/18 11/15/18 06:59 14:59 22:59 Other: Weight 61.235 kg Patient Weight 11/16/18 06:59 Weight 61.235 kg 11/15/18 11:05 11/15/18 11:05
[2018-11-15] MEDS ORDERED: NITROGLYCERIN OINT 1 INCH/GM PACKET TOPICAL SCH (18:00)
[2018-11-15] MEDS ORDERED: ATORVASTATIN 40 MG TAB PO SCH (21:00)
[2018-11-15] MEDS: VERAPAMIL SR 120 MG TABLET.ER PO SCH (21:36)
[2018-11-16] MEDS ORDERED: IPRATROPIUM-ALBUTEROL 3 ML NEB INHALATION PRN (00:30)
--- NOTE | 2018-11-16 00:33 | P.HPIM ---
History of Present Illness H&P Date: 11/15/18 Chief Complaint: Chest pain Patient is a 53-year-old male with a known history of coronary artery disease status post stent placement in 2012, nicotine addiction ongoing, hypertension, hyperlipidemia, history of ID and CVA with right-sided weakness and falls., Came to ER with complaints of left-sided chest pain radiating to the left jaw and arm. Patient says that pain started today while he was visiting his friend. Pain is associated with shortness of breath and dizziness. No nausea vomiting or diaphoresis. Pain lasted for about an hour and relieved with nitroglycerin sublingual tablets. Recent echocardiogram showed ejection fraction 55-60%. EKG showed sinus sinus rhythm without significant ST-T changes. Chest x-ray showed no acute cardiopulmonary process. Troponin 1 negative. Heart Rate 54 Review of Systems Constitutional: Patient denies any fever or chills . No generalized weakness or weight loss. Abdomen: Patient denied nausea vomiting and diarrhea and abdominal pain. Cardiovascular: Patient denies any chest pain or short of breath no palpitations. Respiratory: patient denied any cough is from production. No shortness of breath Neurologic: Patient denied any numbness or tingling headache. Musculoskeletal: Patient denies any complaints of joint swelling or deformity. Skin: Negative Psychiatric: Negative Endocrine: No heat or cold intolerance. No recent weight gain. Genitourinary: No dysuria or hematuria. All other 14 point ROS negative except the above Past Medical History Past Medical History: Coronary Artery Disease (CAD), Chest Pain / Angina, COPD, CVA/TIA, Hyperlipidemia, Hypertension, Myocardial Infarction ([place]), Osteoarthritis ([place]) Additional Past Medical History / Comment(s): CVA with R sided weakness/ occasionally R leg "gives out" and pt falls, TIAs, arthritis in upper back/chronic pain, Last Myocardial Infarction Date:: 04/2012 History of Any Multi-Drug Resistant Organisms: None Reported Past Surgical History: Heart Catheterization With Stent Additional Past Surgical History / Comment(s): PC Past Anesthesia/Blood Transfusion Reactions: No Reported Reaction Date of Last Stent Placement:: 04/2012 Smoking Status: Current every day smoker - Past Family History Father Family Medical History: Cancer Additional Family Medical History / Comment(s): Father had lung cancer and at the age of 67yrs. He was a smoker. Medications and Allergies Home Medications Medication Instructions Recorded Confirmed Type Albuterol Inhaler [Ventolin Hfa 2 puff INHALATION RT-Q4H PRN 08/31/18 11/15/18 H istory Inhaler] Aspirin EC [Ecotrin Low Dose] 81 mg PO DAILY 08/31/18 11/15/18 History Atorvastatin [Lipitor] 40 mg PO HS 08/31/18 11/15/18 History Escitalopram [Lexapro] 10 mg PO DAILY 08/31/18 11/15/18 History Ibuprofen [Motrin] 800 mg PO TID PRN 08/31/18 11/15/18 History Isosorbide Mononitrate ER [Imdur] 60 mg PO DAILY 08/31/18 11/15/18 History Omeprazole 20 mg PO DAILY 08/31/18 11/15/18 History Verapamil HCl 120 mg PO Q12H 08/31/18 11/15/18 History Allergies Allergy/AdvReac Type Severity Reaction Status Date / Time No Known Allergies Allergy Verified 11/15/18 11:31 Physical Exam Vitals: Vital Signs Temp Pulse Resp BP Pulse Ox 11/15/18 17:30 50 L 17 111/74 100 11/15/18 17:00 56 L 18 116/75 11/15/18 16:30 56 L 18 114/77 99 11/15/18 16:00 58 L 16 109/75 96 11/15/18 15:30 63 17 115/79 98 11/15/18 15:00 55 L 16 115/82 99 11/15/18 14:30 54 L 18 113/70 100 11/15/18 14:00 54 L 16 105/72 98 11/15/18 13:30 17 108/79 98 11/15/18 12:30 58 L 16 111/81 97 11/15/18 12:00 60 18 106/69 99 11/15/18 11:30 64 18 119/81 99 11/15/18 11:00 98.5 F 70 18 119/81 97 Intake and Output 11/15/18 11/15/18 11/15/18 06:59 14:59 22:59 Other: Weight 61.235 kg PHYSICAL EXAMINATION: Patient is lying in the bed comfortably, no acute distress, awake alert and oriented.. HEENT: Normocephalic. Neck is supple. Pupils reactive. Nostrils clear. Oral cavity is moist. Ears reveal no drainage. Neck reveals no JVD, carotid bruits, or thyromegaly. CHEST EXAMINATION: Trachea is central. Symmetrical expansion. Lung duong clear to auscultation and percussion. CARDIAC: Normal S1, S2 with no gallops. No murmurs ABDOMEN: Soft. Bowel sounds normal. No organomegaly. No abdominal bruits. Extremities: reveal no edema. No clubbing or cyanosis Neurologically awake, alert, oriented x3 with well-coordinated movements. No focal deficits noted Skin: No rash or skin lesions. Psychiatric: Coperative. Nonsuicidal Musculoskeletal: No joint swelling or deformity. Normal range of motion. Results CBC & Chem 7: 11/15/18 11:05 11/15/18 11:05 Thrombosis Risk Factor Assmnt - Choose All That Apply Any of the Below Risk Factors Present?: Yes Each Factor Represents 1 point: Abnormal pulmonary function (COPD), Age 41-60 years Other Risk Factors: No Other congenital or acquired thrombophilia - If yes, enter type in comment: No Thrombosis Risk Factor Assessment Total Risk Factor Score: 2 Thrombosis Risk Factor Assessment Level: Low Risk Assessment and Plan Assessment: Chest pain. Possible unstable angina. Coronary artery disease with history of stent placement in 2013 Ongoing nicotine addiction Hyperlipidemia Hypertension COPD Plan: Patient is being continued on telemetry monitoring. Continued heparin drip and serial troponins. Continue with aspirin statins and verapamil and imdur., which he has been on at home. Cardiology was consulted for further evaluation. Smoking cessation has been counseled extensively. Time with Patient: Greater than 30
[2018-11-16 01:55] LABS: Cholesterol 165 mg/dL (<200); HDL Cholesterol 87 mg/dL (40-60); LDL Cholesterol,Calculated 66 mg/dL (0-99); Triglycerides 60 mg/dL (<150)
[2018-11-16 06:50] LABS: INR 0.9 (<1.2); Partial Thromboplastin Time 31.9 sec (22.0-30.0); Prothrombin Time 10.1 sec (9.0-12.0)
[2018-11-16] MEDS ORDERED: HEPARIN SODIUM,PORCINE 5,000 UNIT/ML 1 ML VIAL IV PRN (07:52)
[2018-11-16] MEDS ORDERED: ASPIRIN 81 MG PO SCH (09:00)
[2018-11-16] MEDS ORDERED: ASPIRIN 325 MG TAB PO SCH (09:00)
[2018-11-16] MEDS ORDERED: ISOSORBIDE MONONITRATE ER 60 MG TAB.ER.24H PO SCH (09:00)
[2018-11-16] MEDS: VERAPAMIL SR 120 MG TABLET.ER PO SCH (10:30)
--- NOTE | 2018-11-16 10:53 | P.PN ---
Subjective This is a pleasant 53-year-old male past medical history significant for coronary artery disease status post revascularization 3-5 years ago at [facility] exact details unavailable, hypertension, dyslipidemia, COPD and chronic nicotine dependence. 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 He is seen and examined resting comfortably on the bed in no acute distress. He denies any further episodes of chest discomfort or shortness of breath. Enzymes are negative x3 and LDL is 66. Blood pressure 111/6 2 heart rate 65 afebrile and maintaining oxygen saturation on room air. Currently maintained on aspirin 81 mg daily, atorvastatin 40 mg daily, imdur 60 mg daily and verapamil 120 mg BID. GENERAL: This is a 53-year-old male in no apparent distress at the time of my examination. HEENT: Head is atraumatic, normocephalic. Pupils are equal, round. Sclerae anicteric. Conjunctivae are clear. Mucous membranes of the mouth are moist. Neck is supple. There is no jugular venous distention. No carotid bruit is heard. LUNGS: Clear to auscultation no wheezes, rales or rhonchi. No chest wall tend erness is noted on palpation or with deep breathing. Diminished bilaterally. HEART: Regular rate and rhythm without murmurs, rubs or gallops. S1 and S2 heard. EXTREMITIES: No evidence of peripheral edema and no calf tenderness noted. ASSESSMENT Chest pain, atypical. History of underlying coronary artery disease Hypertension Dyslipidemia COPD Chronic nicotine dependence PLAN Stable for discharge from a cardiac perspective. Follow up in the office in 2 weeks. Smoking cessation recommended. Nurse Practitioner note has been reviewed, I agree with a documented findings and plan of care. Patient was seen and examined. Objective - Vital Signs Vital signs: Vital Signs Temp 98.5 F 11/15/18 11:00 Pulse 65 11/16/18 10:28 Resp 18 11/16/18 10:28 BP 111/62 11/16/18 10:28 Pulse Ox 98 11/16/18 10:28 Intake & Output 11/15/18 11/16/18 11/16/18 18:59 06:59 18:59 Weight 61.235 kg - Labs CBC & Chem 7: 11/15/18 11:05 11/15/18 11:05 Labs: Abnormal Lab Results - Last 24 Hours (Table) 11/15/18 11/16/18 Range/Units 11:05 06:11 APTT 31.9 H (22.0-30.0) sec HDL Cholesterol 87 H (40-60) mg/dL
[2018-11-16 15:51] VITALS: BP 108/79; PULSE 67; RESP 16
--- NOTE | 2018-11-21 16:02 | P.DS ---
Providers Date of admission: 11/15/18 13:47 Expected date of discharge: 11/16/18 Attending physician: Nessa Zamora Consults: 11/15/18 13:47 Consult Physician Urgent Consulting Provider: [facility] Consult Reason/Comments: Unstable angina Do you want consulting provider notified?: Yes [facility] Course: Discharge diagnosis Chest pain. Possible unstable angina. Ruled out ACS. Coronary artery disease with history of stent placement in 2012 Ongoing nicotine addiction Hyperlipidemia Hypertension COPD Hospital course Patient is a 53-year-old male with a known history of coronary artery disease status post stent placement in 2013, nicotine addiction ongoing, hypertension, hyperlipidemia, history of ME and CVA with right-sided weakness and falls., Came to ER with complaints of left-sided chest pain radiating to the left jaw and arm. Patient says that pain started today while he was visiting his friend. Pain is associated with shortness of breath and dizziness. No nausea vomiting or diaphoresis. Pain lasted for about an hour and relieved with nitroglycerin sublingual tablets. Recent echocardiogram showed ejection fraction 55-60%. EKG showed sinus sinus rhythm without significant ST-T changes. Chest x-ray showed no acute cardiopulmonary process. Troponin 1 negative. Heart Rate 54 Patient was continued on telemetry. Continued on heparin drip and serial troponins 3 negative. Continue with home medications including aspirin statins and imdur. Cardiology recommends no intervention at this time. Smoking cessation has been counseled. PHYSICAL EXAMINATION: Patient is lying in the bed comfortably, no acute distress, awake alert and oriented.. HEENT: Normocephalic. Neck is supple. Pupils reactive. Nostrils clear. Oral cavity is moist. Ears reveal no drainage. Neck reveals no JVD, carotid bruits, or thyromegaly. CHEST EXAMINATION: Trachea is central. Symmetrical expansion. Lung duong clear to auscultation and percussion. CARDIAC: Normal S1, S2 with no gallops. No murmurs ABDOMEN: Soft. Bowel sounds normal. No organomegaly. No abdominal bruits. Extremities: reveal no edema. No clubbing or cyanosis Neurologically awake, alert, oriented x3 with well-coordinated movements. No focal deficits noted Skin: No rash or skin lesions. Psychiatric: Coperative. Nonsuicidal Musculoskeletal: No joint swelling or deformity. Normal range of motion. Vital Signs Temp 98.5 F 11/15/18 11:00 Pulse 65 11/16/18 10:28 Resp 18 11/16/18 10:28 BP 111/62 11/16/18 10:28 Pulse Ox 98 11/16/18 10:28 Intake & Output 11/15/18 11/16/18 11/16/18 18:59 06:59 18:59 Weight 61.235 kg Patient Condition at Discharge: Good Plan - Discharge Summary Discharge Rx Participant: No New Discharge Prescriptions: Continue Omeprazole 20 mg PO DAILY Atorvastatin [Lipitor] 40 mg PO HS Verapamil HCl 120 mg PO Q12H Isosorbide Mononitrate ER [Imdur] 60 mg PO DAILY Escitalopram [Lexapro] 10 mg PO DAILY Aspirin EC [Ecotrin Low Dose] 81 mg PO DAILY Albuterol Inhaler [Ventolin Hfa Inhaler] 2 puff INHALATION RT-Q4H PRN PRN Reason: Shortness Of Breath Discontinued Ibuprofen [Motrin] 800 mg PO TID PRN PRN Reason: Pain Discharge Medication List Albuterol Inhaler [Ventolin Hfa Inhaler] 2 puff INHALATION RT-Q4H PRN 08/31/18 [History] Aspirin EC [Ecotrin Low Dose] 81 mg PO DAILY 08/31/18 [History] Atorvastatin [Lipitor] 40 mg PO HS 08/31/18 [History] Escitalopram [Lexapro] 10 mg PO DAILY 08/31/18 [History] Isosorbide Mononitrate ER [Imdur] 60 mg PO DAILY 08/31/18 [History] Omeprazole 20 mg PO DAILY 08/31/18 [History] Verapamil HCl 120 mg PO Q12H 08/31/18 [History] Follow up Appointment(s)/Referral(s): Mone Shaikh MD [STAFF PHYSICIAN] - 12/09/18 2:15 pm Luis Bonilla MD [Primary Care Provider] - 1-2 days Patient Instructions/Handouts: Chest Pain (GEN) Discharge Disposition: HOME SELF-CARE
== END 2018-11-16 18:34 | disposition home or self-care (01) ==
LOC: EC 10:50 → 1SOBS 13:47
PROVIDERS: ADMIT Internal Medicine; ATTEND Internal Medicine
DX: R07.89 Other chest pain (principal); I25.10 Atherosclerotic heart disease of native coronary artery without angina pectoris; J44.9 Chronic obstructive pulmonary disease, unspecified; R42 Dizziness and giddiness; E78.5 Hyperlipidemia, unspecified; I10 Essential (primary) hypertension; I69.351 Hemiplegia and hemiparesis following cerebral infarction affecting right dominant side; M19.90 Unspecified osteoarthritis, unspecified site; M46.94 Unspecified inflammatory spondylopathy, thoracic region; G89.29 Other chronic pain; R53.1 Weakness; F17.200 Nicotine dependence, unspecified, uncomplicated; E78.00 Pure hypercholesterolemia, unspecified; Z79.82 Long term (current) use of aspirin; Z79.1 Long term (current) use of non-steroidal anti-inflammatories (NSAID); Z79.899 Other long term (current) drug therapy; Z95.5 Presence of coronary angioplasty implant and graft; I25.2 Old myocardial infarction; Z91.81 History of falling; Z82.49 Family history of ischemic heart disease and other diseases of the circulatory system; Z80.1 Family history of malignant neoplasm of trachea, bronchus and lung; Z81.2 Family history of tobacco abuse and dependence
CPT/HCPCS: 96374; 99291; 36415; 93005; 80061; 80053; 83735; 84484; 85025; 85610 ×2; 85730 ×2; 71046; G0378 ×2; J1644 ×2

== ENCOUNTER 2019-01-22 12:04 | Observation (INO) | payer MEDICARE, OTHER ==
[2019-01-22] MEDS ORDERED: SODIUM CHLORIDE 0.9% 500 ML 500 ML IV STA (12:17)
--- NOTE | 2019-01-22 12:22 | ED ---
General Adult HPI - General Chief complaint: Chest Pain Stated complaint: Chest pain Time Seen by Provider: 01/22/19 12:10 Source: patient, RN notes reviewed, old records reviewed Mode of arrival: EMS Limitations: no limitations - History of Present Illness Initial comments: 53-year-old male presenting for evaluation of left-sided chest pain. Patient's symptoms began approximately one hour prior to arrival. He took 2 nitroglycerin at home as well as aspirin he was given a third nitroglycerin by EMS. Upon arrival he is chest pain-free. He has known history of CAD with previous stenting. He denies nausea vomiting. Denies diaphoresis. He did report some associated left-sided abdominal pain which was very transient. He reported radiation to his left shoulder and through to his back. He is a current smoker. He has a history of COPD. He states he's had a mild cough which is baseline no change in cough. No fever. No chills. Pain was described as a squeezing pressure. Resolved at this time. - Related Data Home Medications Medication Instructions Recorded Confirmed Albuterol Inhaler [Ventolin Hfa 2 puff INHALATION RT-Q4H PRN 08/31/18 11/15/18 Inhaler] Aspirin EC [Ecotrin Low Dose] 81 mg PO DAILY 08/31/18 11/15/18 Atorvastatin [Lipitor] 40 mg PO HS 08/31/18 11/15/18 Escitalopram [Lexapro] 10 mg PO DAILY 08/31/18 11/15/18 Isosorbide Mononitrate ER [Imdur] 60 mg PO DAILY 08/31/18 11/15/18 Omeprazole 20 mg PO DAILY 08/31/18 11/15/18 Verapamil HCl 120 mg PO Q12H 08/31/18 11/15/18 Allergies Allergy/AdvReac Type Severity Reaction Status Date / Time No Known Allergies Allergy Verified 01/22/19 12:14 Review of Systems ROS Statement: Those systems with pertinent positive or pertinent negative responses have been documented in the HPI. ROS Other: All systems not noted in ROS Statement are negative. Past Medical History Past Medical History: Coronary Artery Disease (CAD), Chest Pain / Angina, COPD, CVA/TIA, Hyperlipidemia, Hypertension, Myocardial Infarction (TN), Osteoarthritis (OA) Additional Past Medical History / Comment(s): CVA with R sided weakness/occasionally R leg "gives out" and pt falls, TIAs, arthritis in upper back/chronic pain, Last Myocardial Infarction Date:: 04/2012 History of Any Multi-Drug Resistant Organisms: None Reported Past Surgical History: Heart Catheterization With Stent Additional Past Surgical History / Comment(s): PC Past Anesthesia/Blood Transfusion Reactions: No Reported Reaction Date of Last Stent Placement:: 04/2012 Past Psychological History: No Psychological Hx Reported Smoking Status: Current every day smoker Past Alcohol Use History: None Reported Past Drug Use History: None Reported - Past Family History Father Family Medical History: Cancer Additional Family Medical History / Comment(s): Father had lung cancer and at the age of 67yrs. He was a smoker. General Exam Limitations: no limitations General appearance: alert, in no apparent distress Head exam: Present: atraumatic, normocephalic Eye exam: Present: normal appearance, PERRL ENT exam: Present: normal exam Neck exam: Present: normal inspection. Absent: tenderness, meningismus Respiratory exam: Present: normal lung sounds bilaterally. Absent: respiratory distress, wheezes Cardiovascular Exam: Present: regular rate, normal rhythm, other (Symmetric radial pulses, 2+) GI/Abdominal exam: Present: soft. Absent: distended, tenderness Extremities exam: Present: normal inspection, normal capillary refill. Absent: calf tenderness Back exam: Present: normal inspection, full ROM Neurological exam: Present: alert, oriented X3, CN II-XII intact. Absent: motor sensory deficit Psychiatric exam: Present: normal affect, normal mood Skin exam: Present: warm, dry, intact. Absent: cyanosis, diaphoretic Course Vital Signs 01/22/19 01/22/19 01/22/19 12:10 12:30 13:00 Temperature 98 F Pulse Rate 67 72 64 Respiratory 18 18 13 Rate Blood Pressure 117/80 117/80 117/80 O2 Sat by Pulse 97 99 99 Oximetry 01/22/19 14:00 Temperature Pulse Rate 101 H Respiratory 18 Rate Blood Pressure 111/83 O2 Sat by Pulse 97 Oximetry - Reevaluation(s) Reevaluation #1: 01/22/19 14:38 Patient's pain is resolved at the time my initial evaluation, does not return while in the emergency department. EKG Findings - EKG Comments: EKG Findings:: EKG: Normal sinus rhythm, left atrial enlargement T-wave inversion in V2, no other definitive signs of ischemia, no ST segment elevation, rate of 64, MT interval 152, QRS duration 88, QTC 435 Medical Decision Making - Medical Decision Making At 53-year-old male history of tobacco use, previous CAD presenting with left- sided chest pain radiating from his abdomen into his chest and to his left shoulder and back. EKG was normal sinus rhythm with no ST segment elevation. He has normal CBC, normal electrolytes, negative initial troponin. Chest x-rays obtained which is negative for focal pneumonia, no acute findings. CT is performed given the associated abdominal pain and pain radiating into his back. This is negative for dissection. 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 Patient is informed of this and will follow up as an outpatient. Given the fact that his pain was relieved with nitroglycerin will be admitted for serial cardiac enzymes, telemetry, cardiology consultation. Kelly belle is agreeable with plan. - Lab Data Result diagrams: 01/22/19 12:20 01/22/19 12:20 Lab Results 01/22/19 01/22/19 01/22/19 Range/Units 12:20 12:20 12:20 WBC 9.0 (3.8-10.6) k/uL RBC 4.64 (4.30-5.90) m/uL Hgb 15.2 (13.0-17.5) gm/dL Hct 46.1 (39.0-53.0) % MCV 99.4 (80.0-100.0) fL MCH 32.8 (25.0-35.0) pg MCHC 33.0 (31.0-37.0) g/dL RDW 13.0 (11.5-15.5) % Plt Count 267 (150-450) k/uL Neutrophils % 75 % Lymphocytes % 17 % Monocytes % 6 % Eosinophils % 1 % Basophils % 0 % Neutrophils # 6.8 (1.3-7.7) k/uL Lymphocytes # 1.5 (1.0-4.8) k/uL Monocytes # 0.5 (0-1.0) k/uL Eosinophils # 0.1 (0-0.7) k/uL Basophils # 0.0 (0-0.2) k/uL PT (9.0-12.0) sec INR (<1.2) APTT (22.0-30.0) sec Sodium 139 (137-145) mmol/L Potassium 4.3 (3.5-5.1) mmol/L Chloride 106 (98-107) mmol/L Carbon Dioxide 27 (22-30) mmol/L Anion Gap 6 mmol/L BUN 15 (9-20) mg/dL Creatinine 0.70 (0.66-1.25) mg/dL Est GFR (CKD-EPI)AfAm >90 (>60 ml/min/1.73 sqM) Est GFR (CKD-EPI)NonAf >90 (>60 ml/min/1.73 sqM) Glucose 104 H (74-99) mg/dL Calcium 9.7 (8.4-10.2) mg/dL Magnesium 1.9 (1.6-2.3) mg/dL Total Bilirubin 0.8 (0.2-1.3) mg/dL AST 30 (17-59) U/L ALT 23 (21-72) U/L Alkaline Phosphatase 68 (38-126) U/L Troponin I (0.000-0.034) ng/mL NT-Pro-B Natriuret Pep 46 pg/mL Total Protein 7.2 (6.3-8.2) g/dL Albumin 4.4 (3.5-5.0) g/dL Lipase 83 (23-300) U/L 01/22/19 01/22/19 Range/Units 12:20 12:20 WBC (3.8-10.6) k/uL RBC (4.30-5.90) m/uL Hgb (13.0-17.5) gm/dL Hct (39.0-53.0) % MCV (80.0-100.0) fL MCH (25.0-35.0) pg MCHC (31.0-37.0) g/dL RDW (11.5-15.5) % Plt Count (150-450) k/uL Neutrophils % % Lymphocytes % % Monocytes % % Eosinophils % % Basophils % % Neutrophils # (1.3-7.7) k/uL Lymphocytes # (1.0-4.8) k/uL Monocytes # (0-1.0) k/uL Eosinophils # (0-0.7) k/uL Basophils # (0-0.2) k/uL PT 9.6 (9.0-12.0) sec INR 0.9 (<1.2) APTT 22.3 (22.0-30.0) sec Sodium (137-145) mmol/L Potassium (3.5-5.1) mmol/L Chloride (98-107) mmol/L Carbon Dioxide (22-30) mmol/L Anion Gap mmol/L BUN (9-20) mg/dL Creatinine (0.66-1.25) mg/dL Est GFR (CKD-EPI)AfAm (>60 ml/min/1.73 sqM) Est GFR (CKD-EPI)NonAf (>60 ml/min/1.73 sqM) Glucose (74-99) mg/dL Calcium (8.4-10.2) mg/dL Magnesium (1.6-2.3) mg/dL Total Bilirubin (0.2-1.3) mg/dL AST (17-59) U/L ALT (21-72) U/L Alkaline Phosphatase (38-126) U/L Troponin I <0.012 (0.000-0.034) ng/mL NT-Pro-B Natriuret Pep pg/mL Total Protein (6.3-8.2) g/dL Albumin (3.5-5.0) g/dL Lipase (23-300) U/L Disposition Clinical Impression: Chest pain, Smoking Disposition: ADMITTED IP TO THIS [facility] Condition: Stable Is patient prescribed a controlled substance at d/c from ED?: No Referrals: Luis Bonilla MD [Primary Care Provider] - 1-2 days Decision to Admit Reason: Admit from EC Decision Date: 01/22/19 Decision Time: 14:39
[2019-01-22 12:29] LABS: Basophils % (A) 0 %; Eosinophils # (A) 0.1 k/uL (0-0.7); Eosinophils % (A) 1 %; HCT 46.1 % (39.0-53.0); HGB 15.2 gm/dL (13.0-17.5); Lymphocytes # (A) 1.5 k/uL (1.0-4.8); Lymphocytes % (A) 17 %; MCH 32.8 pg (25.0-35.0); MCV 99.4 fL (80.0-100.0); Mean Platelet Volume 7.8; Monocytes # (A) 0.5 k/uL (0-1.0); Monocytes % (A) 6 %; Neutrophils # (A) 6.8 k/uL (1.3-7.7); Neutrophils % (A) 75 %; Platelet Count 267 k/uL (150-450); RBC 4.64 m/uL (4.30-5.90)
[2019-01-22 12:44] LABS: ALT 23 U/L (21-72); AST 30 U/L (17-59); African American GFR (CKD) >90 (>60 ml/min/1.73 sqM); Albumin 4.4 g/dL (3.5-5.0); Alkaline Phosphatase 68 U/L (38-126); Anion Gap 6 mmol/L; Blood Urea Nitrogen 15 mg/dL (9-20); Calcium 9.7 mg/dL (8.4-10.2); Carbon Dioxide 27 mmol/L (22-30); Chloride 106 mmol/L (98-107); Glucose 104 mg/dL (74-99); Magnesium 1.9 mg/dL (1.6-2.3); Non-African American GFR(CKD) >90 (>60 ml/min/1.73 sqM); Potassium 4.3 mmol/L (3.5-5.1); Sodium 139 mmol/L (137-145); Total Bilirubin 0.8 mg/dL (0.2-1.3); Total Protein 7.2 g/dL (6.3-8.2)
[2019-01-22 12:45] LABS: INR 0.9 (<1.2); Partial Thromboplastin Time 22.3 sec (22.0-30.0); Prothrombin Time 9.6 sec (9.0-12.0)
--- NOTE | 2019-01-22 13:02 | XR ---
EXAMINATION TYPE: XR chest 2V DATE OF EXAM: 01/22/2019 COMPARISON: Chest x-ray November 15, 2018 HISTORY: Chest pain and pressure. TECHNIQUE: Frontal and lateral views of the chest are obtained. FINDINGS: There is some chronic parenchymal change without suspicious focal air space opacity, pleur al effusion, or pneumothorax seen. The cardiac silhouette size is within normal limits. Overlying EK G leads are seen. The osseous structures are intact. IMPRESSION: No acute cardiopulmonary process. No significant change from prior.
--- NOTE | 2019-01-22 14:07 | CT ---
EXAMINATION TYPE: CT angio thor/abd pel aorta DATE OF EXAM: 01/22/2019 COMPARISON: None. HISTORY: Chest pain, possible dissection CT DLP: 1080.9 mGycm. Automated Exposure Control for Dose Reduction was Utilized. CONTRAST: CTA scan of the thorax, abdomen and pelvis is performed without and with IV Contrast, patient injecte d with 100 mL of Isovue 370. Dissection protocol. Three-D reconstructed images. Workstation and reviewed. FINDINGS: VASCULAR: Satisfactory enhancement of pulmonary arteries. Main pulmonary artery measures 2.9 cm in di ameter axial image 44. Ascending aorta measures up to 3.7 cm in diameter on same image. Normal 3 vess el origin from aortic arch. No descending thoracic aortic aneurysm. There is patent celiac artery, SM A, bilateral single renal arteries, and LUKE identified. Patent iliac branch vessels. Patent femoral v essels in the bilateral groin through bifurcation. No significant plaque or stenosis. No linear hypod ensity to suggest dissection. LUNGS: There is mild upper lung parenchymal emphysematous change. No suspicious focal infiltrate. The re is no pleural effusion or pneumothorax seen. The tracheobronchial tree is patent. MEDIASTINUM: There are no greater than 1 cm hilar or mediastinal lymph nodes. No cardiomegaly or pe ricardial effusion is seen. OTHER: Small degree of bilateral nodular subareolar gynecomastia. LIVER/GB: No significant abnormality is appreciated. PANCREAS: No significant abnormality is seen. SPLEEN: No significant abnormality is seen. ADRENALS: Low dense 2.0 cm right adrenal mass is felt to reflect benign lipid rich adenoma. KIDNEYS: No significant abnormality is seen. BOWEL: No significant abnormality is seen. GENITAL ORGANS: Mildly enlarged prostate gland bulging on bladder base. LYMPH NODES: No greater than 1cm abdominal or pelvic lymph nodes are appreciated. OSSEOUS STRUCTURES: No significant abnormality is seen. OTHER: No significant additional abnormality is seen. IMPRESSION: Mild aneurysmal change ascending aorta up to 3.7 cm. No aortic dissection. No suspicious fluid collection to suggest leak or rupture. No acute findings identified.
[2019-01-22] MEDS ORDERED: ACETAMINOPHEN TAB 325 MG TAB PO PRN (14:33)
[2019-01-22] MEDS ORDERED: ONDANSETRON 4 MG/2 ML VIAL IVP PRN (14:33)
[2019-01-22] MEDS ORDERED: NALOXONE 0.4 MG/ML 1 ML VIAL IV PRN (14:33)
[2019-01-22] MEDS ORDERED: MORPHINE SULFATE 4 MG/ML SYRINGE IV PRN (14:33)
[2019-01-22] MEDS ORDERED: NITROGLYCERIN SL TABS 0.4 MG TAB SUBLINGUAL PRN (14:35)
[2019-01-22] MEDS ORDERED: VERAPAMIL HCL 120 MG PO SCH (14:45)
[2019-01-22] MEDS ORDERED: ALBUTEROL NEBULIZED 2.5 MG/3 ML INHALATION PRN (16:17)
[2019-01-22] MEDS ORDERED: ALPRAZolam 0.25 MG TAB PO PRN (16:18)
[2019-01-22] MEDS ORDERED: HYDROcodone/APAP 5-325MG 1 EACH TAB PO PRN (16:18)
--- NOTE | 2019-01-22 17:08 | HP ---
HISTORY AND PHYSICAL DATE OF SERVICE: 01/22/2019 CHIEF COMPLAINT: Chest pain. HISTORY OF PRESENT ILLNESS: This 53-year-old gentleman who has a past medical history of multiple medical problems, including history of CAD, history of COPD, CVA, hypertension, hyperlipidemia, history of myocardial infarction, DJD, history of CVI, being followed by Dr. Bonilla in the outpatient setting, apparently had a stress test a few weeks ago. The patient was complaining of chest pain in the anterior part of chest; a pressure type of pain. The patient took 2 nitroglycerin, aspirin, and the third was given by EMS, with some relief. The patient had previous stenting. Patient continues to smoke. There is no history of any fever, rigor or chills. No history of headache, loss of consciousness. There is no history of any radiation of the pain, aggravating or relieving factors as well as symptoms of diaphoresis, and the patient is being monitored in the ICU. The initial troponins are negative. The initial EKG was done and showed some ST-T changes. Otherwise, a thoracic aortic CT scan was also done which showed mild aneurysmal change in the ascending aorta up to 3.7 cm. There is no history of any fever, rigor or chills. No history of headache, loss of consciousness, seizures. PAST MEDICAL HISTORY: 1. History of CAD. 2. History of COPD. 3. CVA. 4. TIA. 5. Hypertension. 6. Hyperlipidemia. 7. History of myocardial infarction. 8. History of DJD. HOME MEDICATIONS: 1. Motrin 800 mg t.i.d. p.r.n. 2. Plavix 75 mg p.o. daily. 3. Lipitor 40 mg at bedtime. 4. Ventolin HFA 2 puffs q.4 p.r.n. 5. Omeprazole 20 mg p.o. daily. 6. Imdur 60 mg p.o. daily. 7. Lexapro 10 mg p.o. daily. 8. Ecotrin 81 mg p.o. daily. ALLERGIES: NONE. FAMILY HISTORY: History of cancer in the family. SOCIAL HISTORY: History of smoking. History of occasional alcohol intake. REVIEW OF SYSTEMS: ENT: No diminished hearing. No diminished vision. CARDIOVASCULAR SYSTEM: As mentioned earlier. RESPIRATORY SYSTEM: As mentioned earlier. GI: No nausea, vomiting, diarrhea. : No dysuria or retention. NERVOUS SYSTEM: No numbness, weakness. ALLERGY/IMMUNOLOGY: No asthma, hayfever. MUSCULOSKELETAL: As mentioned earlier. HEMATOLOGY/ONCOLOGY: No history of anemia. ENDOCRINE: No history of diabetes, hypothyroidism. CONSTITUTIONAL: As mentioned earlier. DERMATOLOGY: Negative. RHEUMATOLOGY: Negative. PSYCHIATRY: As mentioned earlier. PHYSICAL EXAMINATION: Patient alert and oriented x3. Pulse 58, blood pressure 133/82, respirations 16, temperature 98.1, pulse ox 97% on room air. HEENT: Conjunctivae normal. Oral mucosa moist. NECK: No jugular venous distention. No carotid bruit. No lymph node enlargement. CARDIOVASCULAR SYSTEM: S1, S2 muffled. RESPIRATORY SYSTEM: Breath sounds diminished at the bases. Scattered rhonchi and crackles. ABDOMEN: Soft, non-tender. No mass palpable. LEGS: No edema. No swelling. NERVOUS SYSTEM: Higher functions as mentioned earlier. Moves all 4 limbs. No focal motor or sensory deficit. LYMPHATICS: No lymph node palpable in neck, axillae or groin. SKIN: No ulcer, rash, bleeding. JOINTS: No active deforming arthropathy. LABS: CBC within normal limits. Other labs are noted. ASSESSMENT: 1. Chest pain; possible unstable angina. 2. Mild aneurysmal change of the ascending aorta up to 3.7 cm. 3. History of chronic obstructive pulmonary disease. 4. History of coronary artery disease, stent. 5. History of cerebrovascular accident, transient ischemic attack. 6. Hypertension. 7. Hyperlipidemia. 8. Myocardial infarction. 9. Continued ongoing nicotine dependence. 10.History of degenerative joint disease. 11.Cerebrovascular accident with right-sided weakness. 12.History of transient ischemic attacks. 13.FULL CODE. RECOMMENDATIONS AND DISCUSSION: In this 53-year-old gentleman who presented with multiple complex medical issues, we will monitor the patient closely, continue the current medications, continue with symptomatic treatment. Unstable angina protocol. Cardiology consultation. Resume the home medications. Symptomatic treatment. Smoking cessation advised. Prognosis guarded because of multiple complex medical issues. Further recommendations to follow. A copy of this dictation is being forwarded to Dr. Bonilla, who is the primary physician. MMODL / IJN: [id number] /
[2019-01-22 19:41] VITALS: RESP 18
[2019-01-22] MEDS: HEPARIN SODIUM,PORCINE 5,000 UNIT/ML 1 ML VIAL SQ SCH (20:11)
[2019-01-22] MEDS ORDERED: ATORVASTATIN 40 MG TAB PO SCH (21:00)
[2019-01-23 04:16] VITALS: PULSE 52
[2019-01-23 06:14] LABS: African American GFR (CKD) >90 (>60 ml/min/1.73 sqM); Anion Gap 5 mmol/L; Blood Urea Nitrogen 19 mg/dL (9-20); Calcium 9.5 mg/dL (8.4-10.2); Carbon Dioxide 30 mmol/L (22-30); Chloride 105 mmol/L (98-107); Cholesterol 181 mg/dL (<200); Glucose 92 mg/dL (74-99); HDL Cholesterol 84 mg/dL (40-60); LDL Cholesterol,Calculated 79 mg/dL (0-99); Non-African American GFR(CKD) >90 (>60 ml/min/1.73 sqM); Potassium 4.5 mmol/L (3.5-5.1); Sodium 140 mmol/L (137-145); Triglycerides 89 mg/dL (<150)
[2019-01-23 06:47] LABS: Basophils % (A) 1 %; Eosinophils # (A) 0.2 k/uL (0-0.7); Eosinophils % (A) 4 %; HCT 43.3 % (39.0-53.0); HGB 14.6 gm/dL (13.0-17.5); Lymphocytes # (A) 1.7 k/uL (1.0-4.8); Lymphocytes % (A) 27 %; MCH 33.7 pg (25.0-35.0); MCHC 33.8 g/dL (31.0-37.0); MCV 99.7 fL (80.0-100.0); Mean Platelet Volume 7.4; Monocytes # (A) 0.5 k/uL (0-1.0); Monocytes % (A) 8 %; Neutrophils # (A) 3.5 k/uL (1.3-7.7); Neutrophils % (A) 58 %; Platelet Count 246 k/uL (150-450); RBC 4.34 m/uL (4.30-5.90); RDW 13.2 % (11.5-15.5)
[2019-01-23 07:24] VITALS: BP 112/70; TEMP 98.2
[2019-01-23] MEDS ORDERED: PANTOPRAZOLE 40 MG TABLET PO SCH (07:30)
[2019-01-23] MEDS ORDERED: ASPIRIN 81 MG PO SCH (09:00)
[2019-01-23] MEDS ORDERED: ESCITALOPRAM 10 MG TAB PO SCH (09:00)
[2019-01-23] MEDS ORDERED: ISOSORBIDE MONONITRATE ER 60 MG TAB.ER.24H PO SCH (09:00)
[2019-01-23] MEDS ORDERED: NICOTINE 14MG/24HR PATCH TRANSDERM SCH (09:00)
[2019-01-23] MEDS ORDERED: CLOPIDOGREL 75 MG TAB PO SCH (09:00)
[2019-01-23] MEDS: HEPARIN SODIUM,PORCINE 5,000 UNIT/ML 1 ML VIAL SQ SCH (09:45)
--- NOTE | 2019-01-23 09:45 | P.CRDCN ---
History of Present Illness Consult date: 01/23/19 Chief complaint: Chest pain History of present illness: This is a very pleasant 53-year-old male patient with a past medical history significant for coronary artery disease and prior stenting with unknown details, the stenting were performed at [facility] currently the patient is not under the care of any aircraft servicer. Beside that the patient does have history of hypertension, dyslipidemia, and history of smoking. He presented to the emergency room complaining of chest discomfort. The patient was in his usual state of health when he was at home watching TV when he started experiencing discomfort over the mid chest, as a sharp kind of discomfort, without any radiation to the arms or neck or shoulders or back, and without any associated symptoms of shortness of breath, sweating, dizziness, heart racing, or syncope. The discomfort lasted for about 20 minutes and then it was resolved and the patient continues to be chest pain-free during his hospitalization. The EKG showed sinus rhythm without any significant ST or T-wave abnormalities. The chest x-ray did not show any acute abnormalities. The patient was admitted to the hospital back in October 2018 with a chest discomfort and he was discharged at that point. In August 2018, he did have another admission with a chest discomfort and at that point he underwent a stress test which came in to be unremarkable for ischemia. I had a long discussion with him earlier today. I did advise the patient to stay overnight for 24-hour monitoring the patient would like to go home and follow-up as an outpatient. I am going to get the patient up and around and if he is chest pain-free he possibly can go home. Past Medical History Past Medical History: Coronary Artery Disease (CAD), Chest Pain / Angina, COPD, CVA/TIA, Hyperlipidemia, Hypertension, Myocardial Infarction ([place]), Osteoarthritis (OA) Additional Past Medical History / Comment(s): CVA with R sided weakness/occasionally R leg "gives out" and pt falls, TIAs, arthritis in upper back/chronic pain, Last Myocardial Infarction Date:: 04/2012 History of Any Multi-Drug Resistant Organisms: None Reported Past Surgical History: Heart Catheterization With Stent Additional Past Surgical History / Comment(s): PC Past Anesthesia/Blood Transfusion Reactions: No Reported Reaction Date of Last Stent Placement:: 04/2012 Past Psychological History: No Psychological Hx Reported Additional Psychological History / Comment(s): Pt resides with his spouse and a daughter. He uses a cane and has a walker. He has a nebulizer. He drives. He is disabled. Smoking Status: Current every day smoker Past Alcohol Use History: None Reported Additional Past Alcohol Use History / Comment(s): pt states he drinks about 3 beers a day. Past Drug Use History: None Reported - Past Family History Father Family Medical History: Cancer Additional Family Medical History / Comment(s): Father had lung cancer and at the age of 67yrs. He was a smoker. Medications and Allergies Home Medications Medication Instructions Recorded Confirmed Type Albuterol Inhaler [Ventolin Hfa 2 puff INHALATION RT-Q4H PRN 08/31/18 01/22/19 History Inhaler] Aspirin EC [Ecotrin Low Dose] 81 mg PO DAILY 08/31/18 01/22/19 History Atorvastatin [Lipitor] 40 mg PO HS 08/31/18 01/22/19 History Escitalopram [Lexapro] 10 mg PO DAILY 08/31/18 01/22/19 History Isosorbide Mononitrate ER [Imdur] 60 mg PO DAILY 08/31/18 01/22/19 History Omeprazole 20 mg PO DAILY 08/31/18 01/22/19 History Clopidogrel [Plavix] 75 mg PO DAILY 01/22/19 01/22/19 History Ibuprofen [Motrin] 800 mg PO TID PRN 01/22/19 01/22/19 History Allergies Allergy/AdvReac Type Severity Reaction Status Date / Time No Known Allergies Allergy Verified 01/22/19 14:48 Physical Exam Vitals: Vital Signs Temp Pulse Pulse Resp BP BP Pulse Ox 01/23/19 07:23 98.2 F 52 L 18 112/70 98 01/23/19 04:15 97.4 F L 52 L 18 110/67 98 01/22/19 23:52 98.2 F 55 L 18 117/71 99 01/22/19 19:40 98.5 F 68 18 105/65 97 01/22/19 15:16 98.1 F 58 L 132/82 97 01/22/19 15:07 97.9 F 01/22/19 15:00 62 16 118/81 100 01/22/19 14:00 101 H 18 111/83 97 01/22/19 13:00 64 13 117/80 99 01/22/19 12:30 72 18 117/80 99 01/22/19 12:10 98 F 67 18 117/80 97 Intake and Output 01/22/19 01/23/19 01/23/19 22:59 06:59 14:59 Other: Voiding Method Toilet Toilet # Voids 1 1 1 Weight 61.689 kg - Constitutional General appearance: no acute distress - Respiratory Respiratory: bilateral: CTA - Cardiovascular Rhythm: regular Heart sounds: normal: S1, S2 Results 01/23/19 05:26 01/23/19 05:26 Cardiac Enzymes 01/22/19 01/22/19 01/22/19 Range/Units 12:20 12:20 18:17 AST 30 (17-59) U/L Troponin I <0.012 <0.012 (0.000-0.034) ng/mL 01/23/19 Range/Units 00:05 AST (17-59) U/L Troponin I <0.012 (0.000-0.034) ng/mL Coagulation 01/22/19 Range/Units 12:20 PT 9.6 (9.0-12.0) sec APTT 22.3 (22.0-30.0) sec Lipids 01/23/19 Range/Units 05:26 Triglycerides 89 (<150) mg/dL Cholesterol 181 (<200) mg/dL HDL Cholesterol 84 H (40-60) mg/dL CBC 01/22/19 01/23/19 Range/Units 12:20 05:26 WBC 9.0 6.0 (3.8-10.6) k/uL RBC 4.64 4.34 (4.30-5.90) m/uL Hgb 15.2 14.6 (13.0-17.5) gm/dL Hct 46.1 43.3 (39.0-53.0) % Plt Count 267 246 (150-450) k/uL Comprehensive Metabolic Panel 01/22/19 01/23/19 Range/Units 12:20 05:26 Sodium 139 140 (137-145) mmol/L Potassium 4.3 4.5 (3.5-5.1) mmol/L Chloride 106 105 (98-107) mmol/L Carbon Dioxide 27 30 (22-30) mmol/L BUN 15 19 (9-20) mg/dL Creatinine 0.70 0.78 (0.66-1.25) mg/dL Glucose 104 H 92 (74-99) mg/dL Calcium 9.7 9.5 (8.4-10.2) mg/dL AST 30 (17-59) U/L ALT 23 (21-72) U/L Alkaline Phosphatase 68 (38-126) U/L Total Protein 7.2 (6.3-8.2) g/dL Albumin 4.4 (3.5-5.0) g/dL Current Medications Generic Name Dose Route Start Last Admin Trade Name Freq PRN Reason Stop Dose Admin Acetaminophen 650 mg 01/22/19 14:33 Tylenol Tab PO Q6HR PRN Mild Pain or Fever > 100.5 Hydrocodone Bitart/Acetaminophen 1 each 01/22/19 16:18 Alex 5-325 PO Q6HR PRN Pain Albuterol Sulfate 2.5 mg 01/22/19 16:17 Ventolin Nebulized INHALATION RT-Q4H PRN Shortness Of Breath Alprazolam 0.25 mg 01/22/19 16:18 Xanax PO TID PRN Anxiety Aspirin 81 mg 01/23/19 09:00 Aspirin PO DAILY [facility] Atorvastatin Calcium 40 mg 01/22/19 21:00 01/22/19 20:10 Lipitor PO 40 mg HS [facility] Administration Clopidogrel Bisulfate 75 mg 01/23/19 09:00 Plavix PO DAILY [facility] Escitalopram Oxalate 10 mg 01/23/19 09:00 Lexapro PO DAILY [facility] Heparin Sodium (Porcine) 5,000 unit 01/22/19 21:00 01/22/19 20:11 Heparin SQ Not Given Q12HR [facility] Isosorbide Mononitrate 60 mg 01/23/19 09:00 Imdur PO DAILY [facility] Morphine Sulfate 4 mg 01/22/19 14:33 Morphine Sulfate (Inj) IV Q4HR PRN Severe Pain Naloxone HCl 0.2 mg 01/22/19 14:33 Narcan IV Q2M PRN Opioid Reversal Nicotine 1 patch 01/23/19 09:00 Habitrol 14mg/24hr Patch TRANSDERM DAILY [facility] Nitroglycerin 0.4 mg 01/22/19 14:35 Nitrostat SUBLINGUAL Q5M PRN Chest Pain Ondansetron HCl 4 mg 01/22/19 14:33 Zofran IVP Q8HR PRN Nausea And Vomiting Pantoprazole Sodium 40 mg 01/23/19 07:30 Protonix PO AC-BRKFST [facility] Intake and Output 01/22/19 01/23/19 01/23/19 22:59 06:59 14:59 Other: Voiding Method Toilet Toilet # Voids 1 1 1 Weight 61.689 kg 01/23/19 05:26 01/23/19 05:26 Assessment and Plan Assessment: Assessment #11 episode of atypical chest discomfort #2 known CAD and prior stenting with unknown details #3 hypertension #4 dyslipidemia #5 history of smoking Plan #1 acute coronary event was ruled out #2 the patient would like to go home #3 I would get the patient up and around and if she is asymptomatic he possibly can go home
--- NOTE | 2019-01-24 07:18 | DS ---
DISCHARGE SUMMARY DATE OF SERVICE: 01/23/2019 FINAL DIAGNOSES: 1. Chest pain, possibly musculoskeletal, myocardial infarction ruled out. Rule out coronary artery disease, possible unstable angina. 2. Mild aneurysmal changes in the ascending aorta up to 3.7 cm. 3. Chronic obstructive pulmonary disease. 4. Coronary artery disease, stent. 5. History of cerebrovascular accident, transient ischemic attack. 6. Hypertension. 7. Hyperlipidemia. 8. History of myocardial infarction. 9. Continued ongoing nicotine dependence. 10.History of degenerative joint disease. 11.Cerebrovascular accident with right-sided weakness history. 12.History of transient ischemic attack. 13.FULL CODE. DISCHARGE DISPOSITION: The patient will be discharged in stable condition with guarded prognosis. HISTORY OF PRESENT ILLNESS: This is a 53-year-old gentleman with a past medical problems was admitted with chest pain, myocardial infarction ruled out. Cardiology saw the patient, recommended outpatient followup. The patient will be discharged in stable condition with guarded prognosis. On exam, vitals are stable. CARDIOVASCULAR SYSTEM: S1, S2. ABDOMEN: Soft. NERVOUS SYSTEM: No focal deficits. DISCHARGE ADVICE: 1. Diet is cardiac diet. 2. Follow up with Dr. Lopez as recommended. 3. Follow up for outpatient workup. 4. Follow up with Dr. Strong as recommended in 2-3 days. MEDICATIONS: 1. Ecotrin 81 mg daily. 2. Imdur 60 mg p.o. daily. 3. Lexapro 10 mg p.o. daily. 4. Lipitor 40 mg q.h.s. 5. Motrin 800 mg t.i.d. p.r.n. 6. Omeprazole 20 mg p.o. daily. 7. Plavix 75 mg p.o. daily. 8. Albuterol q.4 p.r.n. Once again the patient will be discharged in stable condition with guarded prognosis. MMODL / IJN: [id number] /
== END 2019-01-23 12:55 | disposition home or self-care (01) ==
LOC: EC 12:04 → 1SOBS 14:34
PROVIDERS: ADMIT Hospitalist; ATTEND Hospitalist
DX: R07.89 Other chest pain (principal); I71.2 Thoracic aortic aneurysm, without rupture; I10 Essential (primary) hypertension; I25.10 Atherosclerotic heart disease of native coronary artery without angina pectoris; R10.9 Unspecified abdominal pain; J44.9 Chronic obstructive pulmonary disease, unspecified; I69.351 Hemiplegia and hemiparesis following cerebral infarction affecting right dominant side; F17.200 Nicotine dependence, unspecified, uncomplicated; E78.5 Hyperlipidemia, unspecified; M19.90 Unspecified osteoarthritis, unspecified site; G89.29 Other chronic pain; M54.9 Dorsalgia, unspecified; M46.94 Unspecified inflammatory spondylopathy, thoracic region; Z79.02 Long term (current) use of antithrombotics/antiplatelets; Z79.82 Long term (current) use of aspirin; Z79.899 Other long term (current) drug therapy; I25.2 Old myocardial infarction; Z95.5 Presence of coronary angioplasty implant and graft; Z91.81 History of falling; Z80.1 Family history of malignant neoplasm of trachea, bronchus and lung; Z81.2 Family history of tobacco abuse and dependence
CPT/HCPCS: 93005 ×2; 96360; 96361; 99285; 36415; 83880; 80061; 80053; 80048; 83690; 83735; 84484 ×2; 85025 ×2; 85610; 85730; 71046; 71275; 74174; G0378 ×2; Q9967

== ENCOUNTER 2021-07-29 12:21 | Emergency (ER) | payer MEDICARE, OTHER ==
[2021-07-29 12:33] VITALS: RESP 18; TEMP 98.6
[2021-07-29] MEDS ORDERED: NICOTINE 21MG/24HR PATCH TRANSDERM STA (12:52)
[2021-07-29 12:57] LABS: Basophils # (A) 0.1 k/uL (0-0.2); Basophils % (A) 1 %; Eosinophils # (A) 0.1 k/uL (0-0.7); Eosinophils % (A) 1 %; HCT 42.3 % (39.0-53.0); HGB 13.9 gm/dL (13.0-17.5); Lymphocytes # (A) 1.6 k/uL (1.0-4.8); Lymphocytes % (A) 23 %; MCH 33.4 pg (25.0-35.0); MCHC 32.9 g/dL (31.0-37.0); MCV 101.6 fL (80.0-100.0); Macrocytosis Slight; Mean Platelet Volume 8.9; Monocytes # (A) 0.5 k/uL (0-1.0); Monocytes % (A) 7 %; Neutrophils # (A) 4.8 k/uL (1.3-7.7); Neutrophils % (A) 67 %; Platelet Count 257 k/uL (150-450); RBC 4.16 m/uL (4.30-5.90); RDW 13.1 % (11.5-15.5); WBC 7.2 k/uL (3.8-10.6)
[2021-07-29 13:11] LABS: ALT 20 U/L (4-49); AST 28 U/L (17-59); African American GFR (CKD) >90 (>60 ml/min/1.73 sqM); Albumin 3.7 g/dL (3.5-5.0); Alkaline Phosphatase 83 U/L (38-126); Anion Gap 6 mmol/L; Blood Urea Nitrogen 13 mg/dL (9-20); Calcium 8.5 mg/dL (8.4-10.2); Carbon Dioxide 27 mmol/L (22-30); Chloride 106 mmol/L (98-107); Glucose 138 mg/dL (74-99); INR 0.9 (<1.2); Lipase 84 U/L (23-300); Magnesium 1.8 mg/dL (1.6-2.3); Non-African American GFR(CKD) >90 (>60 ml/min/1.73 sqM); Partial Thromboplastin Time 22.6 sec (22.0-30.0); Potassium 3.9 mmol/L (3.5-5.1); Prothrombin Time 10.3 sec (9.0-12.0); Sodium 139 mmol/L (137-145); Total Bilirubin 0.5 mg/dL (0.2-1.3); Total Protein 6.1 g/dL (6.3-8.2)
--- NOTE | 2021-07-29 13:27 | XR ---
EXAMINATION TYPE: XR chest 2V DATE OF EXAM: 07/29/2021 COMPARISON: 01/22/2019 TECHNIQUE: PA and lateral views submitted. HISTORY: Chest pain FINDINGS: The lungs are clear and there is no pneumothorax, pleural effusion, or focal pneumonia. Heart size normal. No overt failure. Nephropathy of the shoulder. Hyperinflation suggests COPD. IMPRESSION: 1. Correlate for COPD.
--- NOTE | 2021-07-29 14:11 | CT ---
EXAMINATION TYPE: CT angio thor/abd pel aorta DATE OF EXAM: 07/29/2021 INDICATION: Chest pain and difficulty breathing. CT DLP: 1100.2 mGy.cm Automated Exposure Control for Dose Reduction was Utilized. TECHNIQUE AND CONTRAST: CT scan of the chest, abdomen and pelvis is performed without and with IV Contrast, patient injected with 100ml mL of Isovue 370. MIP and 3-D reconstruction images were generated on an independent works tation and reviewed. COMPARISON: CT dated 01/22/2019 FINDINGS: Dilated ascending aorta measuring up to 4 cm, appreciated previously and stable. Scattered arterial a therosclerotic calcifications. 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 2 arteries supplying the right kidney. Otherwise unremarkable remainder of the thoracic and abdominal aorta as well as major mediastinal, ab dominal and pelvic arteries without other significant stenosis, occlusion, dissection, other aneurysm or AV malformation. The pulmonary trunk measures 2.9 cm which may suggest pulmonary hypertension. In creased cardiac size, please correlate with echocardiographic results. Mild to moderate COPD changes. Peripheral pulmonary reticulations with focal reticular nodular infilt rates, stable. Irregular nodule seen at the lateral aspect of the right upper lobe measuring 6 mm, st able. Scattered millimetric predominantly pleural-based pulmonary nodules, stable. 8mm left basal pos terior nodule, also stable. Patent trachea and main bronchi. Pleural or pericardial effusion. Promine nt bilateral hilar and mediastinal lymph nodes, stable. No definite hepatic focal lesion. The gallbladder is not distended. Unremarkable spleen, pancreas. St able thickened adrenals. Unremarkable stomach, duodenum and small bowel. No gross colonic abnormality . Normal appendix. Grossly unremarkable prostate and seminal vesicles. Slightly thickened urinary anila dder wall with a right-sided urinary bladder diverticulum, please correlate with urinalysis results. No suspicious abdominal or pelvic lymphadenopathy. No sizable ascites. No aggressive bone lesion. IMPRESSION: Dilated ascending aorta measuring up to 4 cm, stable. No evidence of aortic dissection, stenosis, occ lusion or other aneurysms. Incidental findings and recommendations as described above.
--- NOTE | 2021-07-29 14:15 | ED ---
Chest Pain HPI - General Chief Complaint: Chest Pain Stated Complaint: chest pain Time Seen by Provider: 07/29/21 12:25 Source: EMS Mode of arrival: EMS Limitations: no limitations - History of Present Illness Initial Comments: 56-year-old male with past medical history of COPD, CVA, coronary artery disease status post stent placement and recently diagnosed aortic aneurysm who presents the emergency department with chest pain. States that it started earlier this morning when he is a bleeding around his back yard. He was attempting to start his lawnmower began having pressure in his chest. Pain was 10 out of 10. He did take a nitro and had some improvement in his symptoms. He subsequently called EMS who gave him another nitro and he presents to the emergency department pain free. He was also given an aspirin. He denies any associated nausea or vomiting. Admits to diaphoresis. No ripping or tearing sensation to his back. No numbness, tingling or weakness in his extremities. He follows with Dr. Ha. Last cath was 5-6 years ago. No other alleviating, precipitating or modifying factors - Related Data Home Medications Medication Instructions Recorded Confirmed Atorvastatin [Lipitor] 40 mg PO HS 08/31/18 07/29/21 Clopidogrel [Plavix] 75 mg PO DAILY 01/22/19 07/29/21 Ibuprofen [Motrin] 800 mg PO TID PRN 01/22/19 07/29/21 Albuterol Sulfate [Albuterol 2 puff PO RT-Q4H PRN 07/29/21 07/29/21 Sulfate Hfa] Nitroglycerin Sl Tabs [Nitrostat] 0.4 mg SUBLINGUAL Q5M PRN 07/29/21 07/29/21 Allergies Allergy/AdvReac Type Severity Reaction Status Date / Time No Known Allergies Allergy Verified 07/29/21 13:40 Review of Systems ROS Statement: Those systems with pertinent positive or pertinent negative responses have been documented in the HPI. ROS Other: All systems not noted in ROS Statement are negative. EKG Findings - EKG Comments: EKG Findings:: EKG demonstrates sinus rhythm with a rate of 79. CA interval 149. QRS 87. QTC of 41. No acute ST segment elevations or depressions Past Medical History Past Medical History: Coronary Artery Disease (CAD), Chest Pain / Angina, COPD, CVA/TIA, Hyperlipidemia, Hypertension, Myocardial Infarction ([place]), Osteoarthritis ([place]) Additional Past Medical History / Comment(s): CVA with R sided weakness/occasi onally R leg "gives out" and pt falls, TIAs, arthritis in upper back/chronic pain, Last Myocardial Infarction Date:: 04/2012 History of Any Multi-Drug Resistant Organisms: None Reported Past Surgical History: Heart Catheterization With Stent Additional Past Surgical History / Comment(s): PC Past Anesthesia/Blood Transfusion Reactions: No Reported Reaction Date of Last Stent Placement:: 04/2012 Past Psychological History: No Psychological Hx Reported Smoking Status: Current every day smoker Past Alcohol Use History: None Reported Past Drug Use History: None Reported - Past Family History Father Family Medical History: Cancer Additional Family Medical History / Comment(s): Father had lung cancer and at the age of 67yrs. He was a smoker. General Exam Limitations: no limitations General appearance: alert, in no apparent distress Head exam: Present: atraumatic, normocephalic, normal inspection Eye exam: Present: normal appearance, PERRL, EOMI. Absent: scleral icterus, conjunctival injection, periorbital swelling ENT exam: Present: normal exam, mucous membranes moist Neck exam: Present: normal inspection. Absent: tenderness, meningismus, lymphadenopathy Respiratory exam: Present: normal lung sounds bilaterally. Absent: respiratory distress, wheezes, rales, rhonchi, stridor Cardiovascular Exam: Present: regular rate, normal rhythm, normal heart sounds. Absent: systolic murmur, diastolic murmur, rubs, gallop, clicks GI/Abdominal exam: Present: soft, normal bowel sounds. Absent: distended, tenderness, guarding, rebound, rigid Extremities exam: Present: normal inspection, full ROM, normal capillary refill. Absent: tenderness, pedal edema, joint swelling, calf tenderness Back exam: Present: normal inspection Neurological exam: Present: alert, oriented X3, CN II-XII intact Psychiatric exam: Present: normal affect, normal mood Skin exam: Present: warm, dry, intact, normal color. Absent: rash Course Vital Signs 07/29/21 07/29/21 12:22 14:35 Temperature 98.6 F Pulse Rate 82 80 Respiratory 18 18 Rate Blood Pressure 117/84 106/69 O2 Sat by Pulse 97 98 Oximetry Chest Pain MDM - MDM Upon arrival patient is placed into trauma 1. A thorough history and physical exam was performed. Patient placed on continuous pulse ox and cardiac monitoring. 12-lead EKG was obtained. Laboratory studies were conducted and the patient goes for chest CT due to his history of aneurysm. Laboratory studies are reviewed. Troponin is negative. CT demonstrates asending aortic aneurysm measuring 4 cm which is stable. Patient additionally has multiple pulmonary nodules. No evidence of aortic dissection, stenosis occlusion or other aneurysms. Results are discussed with the patient. Recommended admission for further cardiac workup to include echo and cardiac monitoring. We will continue to monitor troponins. Patient denies admission. Understands the risks and benefits of admission. Agrees to accept the risks of permanent disability and and would like to go home at this time. Patient is instructed to follow up his primary care doctor tomorrow. Return to the emergency room and should he agree to further testing. Patient agreed and was discharged home in stable condition Disposition Clinical Impression: Chest pain, Ascending aortic aneurysm, Ischemic heart disease Disposition: ADMITTED IP TO THIS HOSP Condition: Serious Instructions (If sedation given, give patient instructions): Chest Pain (ED) Additional Instructions: I highly recommended admission for further testing. You are at risk as we did not complete a full cardiac workup. You should return to the ED should he have any new or worsening symptoms or agree to further evaluation. Is patient prescribed a controlled substance at d/c from ED?: No Referrals: Luis Bonilla MD [Primary Care Provider] - 1-2 days Kimberly Quintanilla MD [REFERRING] - 1-2 days Time of Disposition: 14:26
[2021-07-29 14:36] VITALS: BP 106/69; PULSE 80
== END 2021-07-29 14:35 | disposition other institution (70) ==
LOC: EC 12:21
DX: I71.2 Thoracic aortic aneurysm, without rupture (principal); I25.9 Chronic ischemic heart disease, unspecified; J44.9 Chronic obstructive pulmonary disease, unspecified; I25.2 Old myocardial infarction; Z86.73 Personal history of transient ischemic attack (TIA), and cerebral infarction without residual deficits; I10 Essential (primary) hypertension; F17.200 Nicotine dependence, unspecified, uncomplicated
CPT/HCPCS: 36415; 83880; 80053; 83690; 83735; 84484; 85025; 85610; 85730; 71046; 71275; 74174; 99285; S4990; Q9967; 93005

== ENCOUNTER 2022-03-03 08:29 | Observation (INO) | payer MEDICARE, OTHER ==
[2022-03-03] MEDS ORDERED: ASPIRIN 81 MG PO STA (08:42)
[2022-03-03] MEDS ORDERED: NITROGLYCERIN OINT 1 INCH/GM PACKET TOPICAL STA (08:42)
[2022-03-03] MEDS ORDERED: IPRATROPIUM-ALBUTEROL 3 ML NEB INHALATION STA (09:10)
--- NOTE | 2022-03-03 09:11 | ED ---
Chest Pain HPI - General Chief Complaint: Chest Pain Stated Complaint: chest pain Time Seen by Provider: 03/03/22 08:37 Source: patient, RN notes reviewed Mode of arrival: ambulatory Limitations: no limitations - History of Present Illness Initial Comments: 56-year-old male presents emergency Department chief complaint of chest pain. Patient states started this morning. Patient states that he does have underlying cardiac disease, COPD is a daily smoker. Patient states felt short of breath. He took one nitro prior arrival which helped his pain. Patient states she's followed by Dr. Ha. Patient denies any nausea vomiting no diaphoretic episodes, no fever or chills. Patient states he does take Plavix, Lipitor - Related Data Home Medications Medication Instructions Recorded Confirmed Atorvastatin Calcium [Lipitor] 40 mg PO HS 03/03/22 Clopidogrel Bisulfate [Clopidogrel] 75 mg PO DAILY 03/03/22 Escitalopram [Lexapro] 10 mg PO DAILY 03/03/22 Ibuprofen [Motrin] 800 mg PO Q8H 03/03/22 Isosorbide Mononitrate ER [Imdur] 60 mg PO DAILY 03/03/22 Allergies Allergy/AdvReac Type Severity Reaction Status Date / Time No Known Allergies Allergy Verified 03/03/22 09:57 Review of Systems ROS Statement: Those systems with pertinent positive or pertinent negative responses have been documented in the HPI. ROS Other: All systems not noted in ROS Statement are negative. EKG Findings - EKG Comments: EKG Findings:: EKG performed a: 41 sinus rhythm rate of 86 MS 150 QRS 98 QT/QTC 358/401 - EKG Results: EKG: interpreted by SHARAD Past Medical History Past Medical History: Coronary Artery Disease (CAD), Chest Pain / Angina, COPD, CVA/TIA, Hyperlipidemia, Hypertension, Myocardial Infarction ([place]), Osteoarthritis (OA) Additional Past Medical History / Comment(s): CVA with R sided weakness/occasionally R leg "gives out" and pt falls, TIAs, arthritis in upper back/chronic pain, Last Myocardial Infarction Date:: 04/2012 History of Any Multi-Drug Resistant Organisms: None Reported Past Surgical History: Heart Catheterization With Stent Additional Past Surgical History / Comment(s): PC Past Anesthesia/Blood Transfusion Reactions: No Reported Reaction Date of Last Stent Placement:: 04/2012 Past Psychological History: No Psychological Hx Reported Smoking Status: Current every day smoker Past Alcohol Use History: None Reported Past Drug Use History: None Reported - Past Family History Father Family Medical History: Cancer Additional Family Medical History / Comment(s): Father had lung cancer and at the age of 67yrs. He was a smoker. General Exam Limitations: no limitations General appearance: alert, in no apparent distress Head exam: Present: atraumatic, normocephalic, normal inspection Eye exam: Present: normal appearance, PERRL, EOMI. Absent: scleral icterus, conjunctival injection, periorbital swelling ENT exam: Present: normal exam, normal oropharynx, mucous membranes moist Neck exam: Present: normal inspection, full ROM. Absent: tenderness, meningismus, lymphadenopathy Respiratory exam: Present: wheezes. Absent: normal lung sounds bilaterally, respiratory distress, rales, rhonchi, stridor Cardiovascular Exam: Present: regular rate, normal rhythm, normal heart sounds. Absent: systolic murmur, diastolic murmur, rubs, gallop, clicks GI/Abdominal exam: Present: soft, normal bowel sounds. Absent: distended, tenderness, guarding, rebound, rigid Course Vital Signs 03/03/22 03/03/22 03/03/22 08:34 09:33 09:44 Temperature 97.9 F Pulse Rate 95 82 86 Respiratory 18 Rate Blood Pressure 110/65 O2 Sat by Pulse 98 Oximetry Chest Pain MDM - MDM Was pt. sent in by a medical professional or institution (, PA, OPEN HEARTH LABORER, urgent care, hospital, or [place] health care facility...) When possible be specific @ -No Did you speak to anyone other than the patient for history (EMS, parent, family, police, friend...)? What history was obtained from this source @ -No Did you review nursing and triage notes (agree or disagree)? Why? @ -I reviewed and agree with nursing and triage notes Were old charts reviewed (outside hosp., previous admission, EMS record, old EKG, old radiological studies, urgent care reports/EKG's, [place] health care facility records)? Report findings @ -No old charts were reviewed Differential Diagnosis (chest pain, altered mental status, abdominal pain women, abdominal pain men, vaginal bleeding, weakness, fever, dyspnea, syncope, headache, dizziness, GI bleed, back pain, seizure, CVA, palpatations, mental health)? @ -not applicable EKG interpreted by me (3pts min.). @ -As above X-rays interpreted by me (1pt min.). @ -Chest x-ray shows no acute cardiopulmonary process CT interpreted by me (1pt min.). @ -None done U/S interpreted by me (1pt. min.). @ -None done What testing was considered but not performed or refused? (CT, X-rays, U/S, labs)? Why? @ -None What meds were considered but not given or refused? Why? @ -None Did you discuss the management of the patient with other professionals (professionals i.e. , PA, OPEN HEARTH LABORER, lab, RT, psych nurse, dialysis social worker, armature winder, teacher, chief risk officer, social work case manager)? Give summary @ -Hospitalist - admission with cardiology Was smoking cessation discussed for >3mins.? @ -I discussed smoking cessation for greater than 3 minutes. The risk of smoking were discussed with the patient including but not limited to risks of cancer, stroke, coronary artery disease and COPD. Also discussed with patient were multiple methods of quitting smoking. Lastly we discussed the financial cost of smoking. Was critical care preformed (if so, how long)? @ -No Were there social determinants of health that impacted care today? How? (Homelessness, low income, unemployed, alcoholism, drug addiction, transportation, low edu. Level, literacy, decrease access to med. care, assisted, rehab)? @ -No Was there de-escalation of care discussed even if they declined (Discuss DNR or withdrawal of care, Hospice)? DNR status @ -No What co-morbidities impacted this encounter? (DM, HTN, Smoking, COPD, CAD, Cancer, CVA, ARF, Chemo, Hep., AIDS, mental health diagnosis, sleep apnea, morbid obesity)? @ -Smoking, hypertension, CAD Was patient admitted / discharged? Hospital course, mention meds given and route, prescriptions, significant lab abnormalities, going to OR and other pertinent info. @ -Admitted - patient has significant cardiac history including multiple stents. Patient will be admitted given acute his symptoms and relief with nitro. Patient does have some PAD type symptoms and will be further evaluated on inpatient aspect Undiagnosed new problem with uncertain prognosis? @ -No Drug Therapy requiring intensive monitoring for toxicity (Heparin, Nitro, Insulin, Cardizem)? @ -No Were any procedures done? @ -No Diagnosis/symptom? @ -Chest pain Acute, or Chronic, or Acute on Chronic? @ -Acute Uncomplicated (without systemic symptoms) or Complicated (systemic symptoms)? @ -Uncomplicated Side effects of treatment? @ -No Exacerbation, Progression, or Severe Exacerbation? @ -No Poses a threat to life or bodily function? How? (Chest pain, [place], [place], pneumonia, PE, COPD, DKA, ARF, appy, cholecystitis, CVA, Diverticulitis, Homicidal, Suicidal, threat to staff... and all critical care pts) @ -Yes] Disposition Clinical Impression: Chest pain, Smoking Disposition: ADMITTED IP TO THIS HOSP Condition: Fair Referrals: Luis Bonilla MD [Primary Care Provider] - 1-2 days Time of Disposition: 10:05
[2022-03-03 09:19] LABS: INR 0.9 (<1.2); Partial Thromboplastin Time 23.6 sec (22.0-30.0); Prothrombin Time 9.9 sec (9.0-12.0)
[2022-03-03 09:22] LABS: Basophils % (A) 0 %; Eosinophils # (A) 0.1 k/uL (0-0.7); Eosinophils % (A) 2 %; HCT 45.4 % (39.0-53.0); HGB 15.4 gm/dL (13.0-17.5); Lymphocytes # (A) 1.3 k/uL (1.0-4.8); Lymphocytes % (A) 25 %; MCH 32.8 pg (25.0-35.0); MCHC 33.8 g/dL (31.0-37.0); MCV 97.1 fL (80.0-100.0); Mean Platelet Volume 9.2; Monocytes # (A) 0.4 k/uL (0-1.0); Monocytes % (A) 8 %; Neutrophils # (A) 3.4 k/uL (1.3-7.7); Neutrophils % (A) 63 %; Platelet Count 262 k/uL (150-450); RBC 4.68 m/uL (4.30-5.90); RDW 13.1 % (11.5-15.5); WBC 5.3 k/uL (3.8-10.6)
[2022-03-03 09:24] LABS: ALT 22 U/L (4-49); AST 31 U/L (17-59); African American GFR (CKD) >90 (>60 ml/min/1.73 sqM); Alkaline Phosphatase 61 U/L (38-126); Anion Gap 4 mmol/L; Blood Urea Nitrogen 9 mg/dL (9-20); Calcium 8.7 mg/dL (8.4-10.2); Carbon Dioxide 29 mmol/L (22-30); Chloride 106 mmol/L (98-107); Glucose 105 mg/dL (74-99); Magnesium 1.9 mg/dL (1.6-2.3); Non-African American GFR(CKD) >90 (>60 ml/min/1.73 sqM); Potassium 4.3 mmol/L (3.5-5.1); Sodium 139 mmol/L (137-145); Total Bilirubin 0.7 mg/dL (0.2-1.3); Total Protein 6.7 g/dL (6.3-8.2)
--- NOTE | 2022-03-03 09:24 | XR ---
EXAMINATION TYPE: XR chest 2V DATE OF EXAM: 03/03/2022 COMPARISON: Prior chest x-ray July 29, 2021 and older studies HISTORY: Chest pain. TECHNIQUE: Frontal and lateral views of the chest are obtained. FINDINGS: There is no suspicious new focal air space opacity, pleural effusion, or pneumothorax seen . The cardiac silhouette size is stable and within normal limits. The osseous structures are intac t. Overlying EKG leads are redemonstrated. IMPRESSION: No acute process. No significant change from prior.
[2022-03-03] MEDS ORDERED: NITROGLYCERIN SL TABS 0.4 MG TAB SUBLINGUAL PRN (10:06)
--- NOTE | 2022-03-03 11:11 | P.CRDCN ---
History of Present Illness Consult date: 03/03/22 Consult reason: chest pain History of present illness: History of present illness: This is a 56-year-old male patient with a past medical history significant for coronary artery disease and prior stenting with unknown details, the stenting were performed at [facility] under the care of Dr. Ha also has history of hypertension, dyslipidemia, COPD, active tobacco use of one pack per day for 35 years. No history of diabetes. Patient complains of a chest pressure with radiation to the left shoulder and the back of his neck. Onset while patient was going down stairs. He took 1 nitroglycerin that seemed to help. He also had a sliding and lightheadedness and has been feeling tired. Patient also complains of pain in the lower right leg and states that it turns white and causes pain. This has been going on for the past couple weeks. He states his senior software systems engineer has not worked him up for lower extremity peripheral vascular disease. Chest pain has resolved. Patient is seen today in the emergency center waiting for a bed on observation unit. Patient gives history of having a normal stress test done by his senior software systems engineer 2-3 months ago. Previous cardiac catheterizations 2 with PCI were done at [facility]. EKG reveals sinus rhythm with no acute ST changes Chest x-ray reveals no acute process Troponin negative 1. CBC is within normal limits. Potassium 4.3. BUN 9 and creatinine 0.7 Home cardiac medications: Imdur 60 mg daily, Plavix 75 mg daily, atorvastatin 40 mg daily ROS At the time of my exam: CONSTITUTIONAL: Denies fever. Denies chills. EYES: Denies blurred vision. Denies vision changes. Denies eye pain. EARS, NOSE, MOUTH & THROAT: Denies headache. Denies sore throat. Denies ear pain. CARDIOVASCULAR: Denies chest pain. Denies shortness of breath. Denies orthopnea. Denies PND. Denies palpitations. RESPIRATORY: Denies cough. GASTROINTESTINAL: Denies abdominal pain. Denies diarrhea. Denies constipation. Denies nausea. Denies vomiting. MUSCULOSKELETAL: Denies myalgias. INTEGUMENTARY: Denies pruitis. Denies rash. NEUROLOGIC: Denies numbness. Denies tingling. Denies weakness. PSYCHIATRIC: Denies anxiety. Denies depression. ENDOCRINE: Denies fatigue. Denies weight change. Denies polydipsia. Denies polyurina. GENITOURINARY: Denies burning, hematuria or urgency with micturation. HEMATOLOGIC: Denies history of anemia. Denies bleeding. Blood pressure 110/68, heart rate 86, temperature 97.9, pulse ox 90% on room air GENERAL: This is a 56-year-old male resting on the ER stretcher and appears to be in no acute distress. HEENT: Head is atraumatic, normocephalic. Pupils are equal, round. Sclerae anicteric. Conjunctivae are clear. Mucous membranes of the mouth are moist. Neck is supple. There is no jugular venous distention. No carotid bruit is heard. LUNGS: Rhonchi bilateral, rales in the left base. HEART: Regular rate and rhythm with systolic murmur. ABDOMEN: Soft, nontender. Bowel sounds are heard. No organomegaly noted. EXTREMITIES: No evidence of peripheral edema and no calf tenderness noted. VASCULAR: Dorsalis pedis +1 on the right, dorsalis pedis +2 on the left, no evidence of clubbing. NEUROLOGIC: Patient is awake, alert and oriented x3. ASSESSMENT Chest pain, rule out coronary artery disease with serial troponins History of underlying coronary artery disease Hypertension Dyslipidemia Peripheral vascular disease COPD Chronic nicotine dependence PLAN Continue to obtain serial cardiac enzymes to rule out an acute event. Resume atorvastatin, Imdur, Plavix Patient will be started on a heparin drip and may discontinue and if additional troponins are negative Plan for possible Lexiscan stress test tomorrow depending on test results and patient's symptoms Obtain arterial ultrasound of the bilateral lower extremities. Further recommendations to follow based upon clinical course. Smoking cessation highly recommended and discussed with the patient. Thank you kindly for this consultation. Nurse Practitioner note has been reviewed, I agree with a documented findings and plan of care. Patient was seen and examined. Past Medical History Past Medical History: Coronary Artery Disease (CAD), Chest Pain / Angina, COPD, CVA/TIA, Hyperlipidemia, Hypertension, Myocardial Infarction ([place]), Osteoarthritis ([place]) Additional Past Medical History / Comment(s): CVA with R sided weakness/occasi onally R leg "gives out" and pt falls, TIAs, arthritis in upper back/chronic pain, Last Myocardial Infarction Date:: 04/2012 History of Any Multi-Drug Resistant Organisms: None Reported Past Surgical History: Heart Catheterization With Stent Additional Past Surgical History / Comment(s): PC Past Anesthesia/Blood Transfusion Reactions: No Reported Reaction Date of Last Stent Placement:: 04/2012 Past Psychological History: No Psychological Hx Reported Smoking Status: Current every day smoker Past Alcohol Use History: None Reported Past Drug Use History: None Reported - Past Family History Father Family Medical History: Cancer Additional Family Medical History / Comment(s): Father had lung cancer and at the age of 67yrs. He was a smoker. Medications and Allergies Home Medications Medication Instructions Recorded Confirmed Type Atorvastatin Calcium [Lipitor] 40 mg PO DAILY 03/03/22 03/03/22 History Clopidogrel Bisulfate [Clopidogrel] 75 mg PO DAILY 03/03/22 03/03/22 History Escitalopram [Lexapro] 10 mg PO DAILY 03/03/22 03/03/22 History Ibuprofen [Motrin] 800 mg PO Q8H PRN 03/03/22 03/03/22 History Isosorbide Mononitrate ER [Imdur] 60 mg PO DAILY 03/03/22 03/03/22 History Allergies Allergy/AdvReac Type Severity Reaction Status Date / Time No Known Allergies Allergy Verified 03/03/22 09:57 Physical Exam Vitals: Vital Signs Temp Pulse Resp BP Pulse Ox 03/03/22 09:44 86 03/03/22 09:33 82 03/03/22 08:34 97.9 F 95 18 110/65 98 Intake and Output 03/02/22 03/03/22 03/03/22 22:59 06:59 14:59 Other: Weight 63.503 kg Results 03/03/22 08:59 03/03/22 08:59 Cardiac Enzymes 03/03/22 03/03/22 Range/Units 08:59 08:59 AST 31 (17-59) U/L Troponin I <0.012 (0.000-0.034) ng/mL Coagulation 03/03/22 Range/Units 08:59 PT 9.9 (9.0-12.0) sec APTT 23.6 (22.0-30.0) sec CBC 03/03/22 Range/Units 08:59 WBC 5.3 (3.8-10.6) k/uL RBC 4.68 (4.30-5.90) m/uL Hgb 15.4 (13.0-17.5) gm/dL Hct 45.4 (39.0-53.0) % Plt Count 262 (150-450) k/uL Comprehensive Metabolic Panel 03/03/22 Range/Units 08:59 Sodium 139 (137-145) mmol/L Potassium 4.3 (3.5-5.1) mmol/L Chloride 106 (98-107) mmol/L Carbon Dioxide 29 (22-30) mmol/L BUN 9 (9-20) mg/dL Creatinine 0.70 (0.66-1.25) mg/dL Glucose 105 H (74-99) mg/dL Calcium 8.7 (8.4-10.2) mg/dL AST 31 (17-59) U/L ALT 22 (4-49) U/L Alkaline Phosphatase 61 (38-126) U/L Total Protein 6.7 (6.3-8.2) g/dL Albumin 4.0 (3.5-5.0) g/dL Current Medications Generic Name Dose Route Start Last Admin Trade Name Freq PRN Reason Stop Dose Admin Aspirin 325 mg 03/04/22 09:00 Aspirin 325 Mg Tab PO DAILY ON LICENSE OF [facility] Atorvastatin Calcium 40 mg 03/04/22 09:00 Atorvastatin 40 Mg Tab PO DAILY ON LICENSE OF [facility] Clopidogrel Bisulfate 75 mg 03/04/22 09:00 Clopidogrel 75 Mg Tab PO DAILY ON LICENSE OF [facility] Nitroglycerin 0.4 mg 03/03/22 10:06 Nitroglycerin Sl Tabs 0.4 Mg Tab SUBLINGUAL Q5M PRN Chest Pain Intake and Output 03/02/22 03/03/22 03/03/22 22:59 06:59 14:59 Other: Weight 63.503 kg Patient Weight 03/04/22 06:59 Weight 63.503 kg 03/03/22 08:59 03/03/22 08:59
[2022-03-03] MEDS ORDERED: HEPARIN SODIUM 1,000 UN/ML (10ML VL) IV PRN (11:25)
[2022-03-03] MEDS ORDERED: HEPARIN SODIUM 1,000 UN/ML (10ML VL) IV ONE (11:25)
[2022-03-03] MEDS ORDERED: HEPARIN SOD,PORK IN 0.45% NACL 25,000 UNIT in 0.45% NACL 1 250ML.BAG IV SCH (11:30)
[2022-03-03] MEDS ORDERED: IPRATROPIUM-ALBUTEROL 3 ML NEB INHALATION PRN (12:40)
[2022-03-03 12:47] LABS: INR 0.9 (<1.2); Partial Thromboplastin Time 22.9 sec (22.0-30.0); Prothrombin Time 9.8 sec (9.0-12.0)
[2022-03-03] MEDS: PANTOPRAZOLE 40 MG/10 ML VIAL IVP SCH (13:01)
--- NOTE | 2022-03-03 13:11 | P.HPIM ---
History of Present Illness H&P Date: 03/03/22 Chief Complaint: Atypical chest This is a 56-year-old male who presents to [facility] with sudden onset retrosternal chest pain. Patient described pain as a pressure radiating to the left shoulder. Once he took oral nitroglycerin pain resolved. At that same time, patient complained of right leg pain. Right lower leg pain persists today. Patient states that his right lower leg often gets really cold and white. Pain is worse with walking long distances. Patient does not have a known diagnosis of peripheral vascular disease. Patient has an extensive medical history which includes COPD, smokes 1 pack of cigarettes a day for over 30 years, hypertension, dyslipidemia, history of CVA with right-sided residual weakness. EKG completed in ER showed normal sinus rhythm with no acute ST changes. Troponin 2 was negative. Chest x-ray showed no acute cardiopulmonary process. Blood glucose level was very mildly elevated at 105. Rest of laborato ry data was normal. Patient was sitting comfortably in the bed at time of exam. and son at bedside. Patient was eating his lunch. At the time of exam patient denied chest pain shortness of breath nausea vomiting fevers or chills. Patient does complain of right lower leg pain. Review of Systems A 14 point review systems was assessed. Patient was only positive for those discussed in HPI. Past Medical History Past Medical History: Coronary Artery Disease (CAD), Chest Pain / Angina, COPD, CVA/TIA, Hyperlipidemia, Hypertension, Myocardial Infarction ([place]), Osteoarthritis ([place]) Additional Past Medical History / Comment(s): CVA with R sided weakness/occasionally R leg "gives out" and pt falls, TIAs, arthritis in upper back/chronic pain, Last Myocardial Infarction Date:: 04/2012 History of Any Multi-Drug Resistant Organisms: None Reported Past Surgical History: Heart Catheterization With Stent Additional Past Surgical History / Comment(s): PC Past Anesthesia/Blood Transfusion Reactions: No Reported Reaction Date of Last Stent Placement:: 04/2012 Past Psychological History: No Psychological Hx Reported Smoking Status: Current every day smoker Past Alcohol Use History: None Reported Past Drug Use History: None Reported - Past Family History Father Family Medical History: Cancer Additional Family Medical History / Comment(s): Father had lung cancer and at the age of 67yrs. He was a smoker. Medications and Allergies Home Medications Medication Instructions Recorded Confirmed Type Atorvastatin Calcium [Lipitor] 40 mg PO DAILY 03/03/22 03/03/22 History Clopidogrel Bisulfate [Clopidogrel] 75 mg PO DAILY 03/03/22 03/03/22 History Escitalopram [Lexapro] 10 mg PO DAILY 03/03/22 03/03/22 History Ibuprofen [Motrin] 800 mg PO Q8H PRN 03/03/22 03/03/22 History Isosorbide Mononitrate ER [Imdur] 60 mg PO DAILY 03/03/22 03/03/22 History Allergies Allergy/AdvReac Type Severity Reaction Status Date / Time No Known Allergies Allergy Verified 03/03/22 09:57 Physical Exam Osteopathic Statement: *. No significant issues noted on an osteopathic structural exam other than those noted in the History and Physical/Consult. Vitals: Vital Signs Temp Pulse Resp BP Pulse Ox 03/03/22 11:36 99.2 F 73 18 109/74 96 03/03/22 11:30 80 18 109/74 97 03/03/22 10:30 93 18 111/77 95 03/03/22 09:44 86 03/03/22 09:36 85 18 113/79 96 03/03/22 09:33 82 03/03/22 08:34 97.9 F 95 18 110/65 98 Intake and Output 03/02/22 03/03/22 03/03/22 22:59 06:59 14:59 Other: Weight 63.503 kg General: [non toxic], [no distress], [appears at stated age] Derm: [warm], [dry] Head: [atraumatic], [normocephalic], [symmetric] Eyes: [EOMI], [no lid lag], [anicteric sclera] Mouth: [no lip lesion], [mucus membranes moist] Cardiovascular: [S1S2 reg], [no murmur], [decreased peripheral pulses in the lower extremities], Lungs: [CTA bilateral], [no rhonchi, no rales] , [no accessory muscle use] Abdominal: [soft], [ nontender to palpation], [no guarding], [no appreciable organomegaly] Ext: [no gross muscle atrophy], [no edema], [no contractures] Neuro: [ CN II-XI grossly intact], [no focal neuro deficits] Psych: [Alert], [oriented], [appropriate affect] Results CBC & Chem 7: 03/03/22 08:59 03/03/22 08:59 Labs: Abnormal Lab Results - Last 24 Hours (Table) 03/03/22 Range/Units 08:59 Glucose 105 H (74-99) mg/dL Thrombosis Risk Factor Assmnt - DVT/VTE Prophylaxis DVT/VTE Prophylaxis: Pharmacologic Prophylaxis ordered - Choose All That Apply Each Factor Represents 1 point: Age 41-60 years Thrombosis Risk Factor Assessment Total Risk Factor Score: 1 Thrombosis Risk Factor Assessment Level: Low Risk Assessment and Plan Assessment: 1. Atypical chest pain with history of coronary artery disease with PTCA Patient is currently on heparin drip and cardiology is following Continue current home medications Check lipid panel Telemetry Vitals every 4 2. Right lower extremity pain with decreased peripheral pulses concern for peripheral vascular disease Arterial Dopplers ordered Will also obtain venous Dopplers due to the localization of the pain r/o DVT 3. CAD with history of PTCA Resume aspirin and statin Telemetry Cardiology following 4. Tobacco dependence Nicoderm CQ 21mg daily 5. History of COPD Duo nebs every 4 hours. 6. Chronic conditions which include history of CVA with right sided residual weakness, dyslipidemia, osteoarthritis, anxiety depression Resume home medications 7. GI DVT prophylaxis 8. A.m. labs Disposition: Home Anticipated length of stay 1-2 days Patient is a full code Greater than 45 minutes spent coordinating care, documenting, and counseling p atient Time with Patient: Greater than 30
--- NOTE | 2022-03-03 14:07 | US ---
EXAMINATION TYPE: US venous doppler duplex LE DATE OF EXAM: 03/03/2022 1:45 PM COMPARISON: NONE CLINICAL HISTORY: leg pain. Pt states right leg pain SIDE PERFORMED: Right TECHNIQUE: The lower extremity deep venous system is examined utilizing real time linear array sonog letitia with graded compression, doppler sonography and color-flow sonography. VESSELS IMAGED: Common Femoral Vein Deep Femoral Vein Greater Saphenous Vein * Femoral Vein Popliteal Vein Small Saphenous Vein * Proximal Calf Veins (* superficial vessels) Right Leg: Negative for DVT Left Leg: Negative for DVT Grayscale, color doppler, spectral doppler imaging performed of the deep veins of the lower extremiti es. There is normal flow, compressibility, vascular waveforms. IMPRESSION: No evidence for deep vein tendinosis of either lower extremity.
--- NOTE | 2022-03-03 15:11 | US ---
EXAMINATION TYPE: US arterial LE single level DATE OF EXAM: 03/03/2022 2:40 PM CLINICAL HISTORY: pain, decreased pulses. Intermittent pain right leg. Decreased pulses. History of C ardiac stents History of: Smoker: Current Hypertension: YES Diabetic: NO Hyperlipidemia: YES TIA/CVA: YES Previous Vascular Surgery: YES OK: YES Vascular Ulcers: NO Claudication: NO Gangrene: NO Comparison: Prior CTA abdomen and pelvis July 29, 2021 Doppler Waveforms: Right: Multiphasic Left: Multiphasic Right Brachial Pressure: 98 Left Brachial Pressure: 84 Ankle-Brachial Indices: Right: 1.32 Left: 1.30 Toe Brachial Indices: Right: 0.84 Left: 0.95 IMPRESSION: Normal study
[2022-03-04 08:14] VITALS: BP 117/66; PULSE 60; RESP 18; TEMP 98
[2022-03-04] MEDS: PANTOPRAZOLE 40 MG/10 ML VIAL IVP SCH (08:50)
[2022-03-04 08:55] LABS: Basophils % (A) 1 %; Eosinophils # (A) 0.2 k/uL (0-0.7); Eosinophils % (A) 3 %; HCT 42.9 % (39.0-53.0); HGB 14.5 gm/dL (13.0-17.5); Lymphocytes # (A) 1.3 k/uL (1.0-4.8); Lymphocytes % (A) 26 %; MCH 33.6 pg (25.0-35.0); MCHC 33.9 g/dL (31.0-37.0); MCV 99.2 fL (80.0-100.0); Mean Platelet Volume 9.6; Monocytes # (A) 0.4 k/uL (0-1.0); Monocytes % (A) 8 %; Neutrophils % (A) 60 %; Platelet Count 246 k/uL (150-450); RBC 4.32 m/uL (4.30-5.90); RDW 13.2 % (11.5-15.5)
[2022-03-04] MEDS ORDERED: ESCITALOPRAM 10 MG TAB PO SCH (09:00)
[2022-03-04] MEDS ORDERED: ASPIRIN 325 MG TAB PO SCH (09:00)
[2022-03-04] MEDS ORDERED: ASPIRIN 81 MG PO SCH (09:00)
[2022-03-04] MEDS ORDERED: ATORVASTATIN 40 MG TAB PO SCH (09:00)
[2022-03-04] MEDS ORDERED: ISOSORBIDE MONONITRATE ER 60 MG TAB.ER.24H PO SCH (09:00)
[2022-03-04] MEDS ORDERED: CLOPIDOGREL 75 MG TAB PO SCH (09:00)
[2022-03-04 09:07] LABS: ALT 20 U/L (4-49); AST 23 U/L (17-59); African American GFR (CKD) >90 (>60 ml/min/1.73 sqM); Albumin 3.5 g/dL (3.5-5.0); Albumin/Globulin Ratio 1.3; Alkaline Phosphatase 72 U/L (38-126); Anion Gap 1 mmol/L; Blood Urea Nitrogen 9 mg/dL (9-20); Calcium 8.5 mg/dL (8.4-10.2); Carbon Dioxide 28 mmol/L (22-30); Chloride 110 mmol/L (98-107); Globulin 2.6 g/dL; Glucose 87 mg/dL (74-99); Non-African American GFR(CKD) >90 (>60 ml/min/1.73 sqM); Potassium 4.7 mmol/L (3.5-5.1); Sodium 139 mmol/L (137-145); Total Bilirubin 0.8 mg/dL (0.2-1.3); Total Protein 6.1 g/dL (6.3-8.2)
--- NOTE | 2022-03-04 10:05 | P.DS ---
Providers Date of admission: 03/03/22 10:15 Expected date of discharge: 03/04/22 Attending physician: Madelyn Eddy DO Consults: 03/03/22 10:06 Consult Physician Urgent Consulting Provider: Paul Lopez Consult Reason/Comments: chest pain Do you want consulting provider notified?: Yes Primary care physician: [facility] Course: Discharge Diagnosis: Chest pain, acute coronary event ruled out. History of coronary artery disease status post stenting Right lower extremity pain with decreased peripheral pulses, bilateral lower extremity venous Dopplers negative for DVT right lower extremity arterial Doppler showing normal study. Patient instructed he will need to follow up outpatient with his size maker Dr. Riley as discussed for continued monitoring and management. Patient also strongly encouraged to stop smoking. History of CVA with right-sided deficits, possible cause of right lower extremity pain Hypertension Hyperlipidemia Nicotine dependence, recommend smoking cessation. Hospital Course: Patient is a very pleasant 56-year-old male with a past medical history of CAD status post stenting, hypertension, hyperlipidemia, CVA with right-sided deficits, and nicotine dependence. Patient presented to the emergency department with a chief complaint of chest pain. He underwent full evaluation. CBC, coags, and CMP were unremarkable. Troponin was negative at less than 0.012. Vital signs were unremarkable. EKG reveals normal sinus rhythm at 86 bpm with no noted T wave or ST abnormality showing no signs of acute ischemia when personally reviewed and interpreted. Chest x-ray negative for acute cardiopulmonary process. Patient was admitted under our services with consultation to cardiology. Troponins were trended all negative at less than 0.0123 draws. Patient underwent bilateral lower extremity venous Dopplers secondary to right lower extremity pain with decreased peripheral pulses. Bilateral lower extremity Dopplers were negative for DVT in right lower extremity arterial Doppler was then completed with a reported normal study. Medically patient is stable at this time, strongly encourage smoking cessation. No medication changes were made this admission patient to continue isosorbide mononitrate, atorvastatin, Lexapro, and Plavix. Patient to follow up outpatient with PCP in 1-2 days and with size maker in 1 week. Patient seen and examined at bedside. Vital signs reviewed and stable. General: Nontoxic, no distress and appears stated age. Derm: Skin warm and dry, normal coloration for ethnicity. Head: Atraumatic, normocephalic and symmetric. Eyes: EOMs intact, no lid lag, and anicteric sclera Mouth: no lip lesions, mucus membranes moist Cardiovascular: regular rate and rhythm with normal S1S2, no murmur, positive posterior tibial pulses bilaterally, and cap refill < 2 seconds. Lungs: Respirations even, regular, and unlabored on room air. Lungs CTA bilaterally, no rhonchi, no rales, no wheezing, and no accessory muscle usage. Abdominal: soft, nontender to palpation, no guarding, no appreciable organomega ly Ext: ROM intact. No gross muscle atrophy, no edema, no contractures Neuro: Speech clear, face symmetrical and CN II-XII grossly intact with no noted focal neuro deficits Psych: Alert and oriented to person, place, time, and situation. Appropriate and pleasant affect. A total of 34 minutes of time were spent preparing this complex discharge summary. Pt was discharged on 03/04/22 at 10:05 AM eVrnon Liriano NP rendered care for this patient independently, reviewed the findings and plan as documented in the note above. I did not physically speak with or examine the patient on this date. Patient Condition at Discharge: Stable Plan - Discharge Summary New Discharge Prescriptions: Continue Isosorbide Mononitrate ER [Imdur] 60 mg PO DAILY Atorvastatin Calcium [Lipitor] 40 mg PO DAILY Escitalopram [Lexapro] 10 mg PO DAILY Clopidogrel Bisulfate [Clopidogrel] 75 mg PO DAILY No Action Ibuprofen [Motrin] 800 mg PO Q8H PRN PRN Reason: Pain Discharge Medication List Atorvastatin Calcium [Lipitor] 40 mg PO DAILY 03/03/22 [History] Clopidogrel Bisulfate [Clopidogrel] 75 mg PO DAILY 03/03/22 [History] Escitalopram [Lexapro] 10 mg PO DAILY 03/03/22 [History] Ibuprofen [Motrin] 800 mg PO Q8H PRN 03/03/22 [History] Isosorbide Mononitrate ER [Imdur] 60 mg PO DAILY 03/03/22 [History] Follow up Appointment(s)/Referral(s): Luis Bonilla MD [Primary Care Provider] - 1-2 days Kimberly Quintanilla MD [REFERRING] - 1 Week Patient Instructions/Handouts: Chest Pain (DC), How to Stop Smoking (ED), Peripheral Vascular Disease (DC) Activity/Diet/Wound Care/Special Instructions: Activity: As tolerated. Take breaks as needed. Diet: Heart healthy and carb consistent diet. Avoid salts, or foods with hidden salts such as canned or boxed foods and frozen dinners. Extra salt makes your heart work harder and traps the fluid in your body for longer. Special Instructions: Take all of your medications as directed and remember to keep all of your doctor's appointments and follow-up as needed. Please ensure that you follow up with your size maker as discussed for completion of echocardiogram and follow-up on right lower extremity pain. Highly recommend smoking cessation. Thank you for allowing us to participate in your care, it was truly a pleasure having you for our patient!!! Discharge Disposition: HOME SELF-CARE
--- NOTE | 2022-03-04 11:43 | P.PN ---
Subjective Progress Note Date: 03/04/22 History of present illness: This is a 56-year-old male patient with a past medical history significant for coronary artery disease and prior stenting with unknown details, the stenting were performed at [facility] under the care of Dr. Ha also has history of hypertension, dyslipidemia, COPD, active tobacco use of one pack per day for 35 years. No history of diabetes. Patient complains of a chest pressure with radiation to the left shoulder and the back of his neck. Onset while patient was going down stairs. He took 1 nitroglycerin that seemed to help. He also had a sliding and lightheadedness and has been feeling tired. Patient also complains of pain in the lower right leg and states that it turns white and causes pain. This has been going on for the past couple weeks. He states his aircraft quality control inspector has not worked him up for lower extremity peripheral vascular disease. Chest pain has resolved. Patient is seen today in the emergency center waiting for a bed on observation unit. Patient gives history of having a normal stress test done by his aircraft quality control inspector 2-3 months ago. Previous cardiac catheterizations 2 with PCI were done at [facility]. EKG reveals sinus rhythm with no acute ST changes Chest x-ray reveals no acute process Troponin negative 1. CBC is within normal limits. Potassium 4.3. BUN 9 and creatinine 0.7 Home cardiac medications: Imdur 60 mg daily, Plavix 75 mg daily, atorvastatin 40 mg daily 03/04 Patient denies having any chest pain or shortness of breath. He denies pain in his right lower extremity. He states that he does not want to undergo chemical stress test which he recently had a Lexiscan that reported by him is normal. Patient wishes to see his cardiology for further testing. Heart rate is in the 50s and 60s, blood pressure 117/66, pulse ox 97% on room air. Repeat CBC is within normal limits. Potassium 4.7, BUN 9 and creatinine 0.6. Ultrasound arterial lower extremities normal Venous Doppler of lower extremity is negative for DVT Physical examination: GENERAL: This is a 56-year-old male ambulating in his room and appears to be in no acute distress. HEENT: Head is atraumatic, normocephalic. Pupils are equal, round. Sclerae anicteric. Conjunctivae are clear. Mucous membranes of the mouth are moist. Neck is supple. LUNGS: Rhonchi bilateral, rales in the left base. HEART: Regular rate and rhythm with systolic murmur. ABDOMEN: Soft, nontender. Bowel sounds are heard. No organomegaly noted. EXTREMITIES: No evidence of peripheral edema and no calf tenderness noted. VASCULAR: Dorsalis pedis +1 on the right, dorsalis pedis +2 on the left, no evidence of clubbing. NEUROLOGIC: Patient is awake, alert and oriented x3. ASSESSMENT Chest pain, rule out coronary artery disease with serial troponins History of underlying coronary artery disease Hypertension Dyslipidemia Peripheral vascular disease COPD Chronic nicotine dependence PLAN Continue patient on atorvastatin, Imdur, Plavix Discontinue heparin drip Smoking cessation highly recommended and discussed with the patient. Patient is cleared from cardiology with plan to follow up with his aircraft quality control inspector for further testing. Nurse Practitioner note has been reviewed, I agree with a documented findings and plan of care. Patient was seen and examined. Objective - Vital Signs Vital signs: Vital Signs Temp 98.0 F 03/04/22 08:00 Pulse 60 03/04/22 08:00 Resp 18 03/04/22 08:00 BP 117/66 03/04/22 08:00 Pulse Ox 97 03/04/22 08:00 FiO2 Intake & Output 03/03/22 03/04/22 03/04/22 18:59 06:59 18:59 Intake Total 47.498 76.994 Balance 47.498 76.994 Weight 63.503 kg Intake: Intake, IV Titration 47.498 76.994 Amount Heparin Sod,Pork in 0.45% 47.498 76.994 NaCl 25,000 unit In 0.45 % NaCl 1 250ml.bag @ 12 UNITS/KG/HR 7.62 mls/hr IV .Q24H [facility] Rx#: [id number] Other: Voiding Method Toilet # Voids 2 2 - Labs CBC & Chem 7: 03/04/22 08:07 03/04/22 08:07 Labs: Abnormal Lab Results - Last 24 Hours (Table) 03/03/22 03/03/22 03/04/22 Range/Units 08:59 17:08 00:56 APTT 30.4 H 38.6 H (22.0-30.0) sec Glucose 105 H (74-99) mg/dL
[2022-03-04 14:33] LABS: Chol/HDL Ratio 1.95 Ratio; LDL Cholesterol,Calculated 60.8 mg/dL (0.0-131.0); VLDL Calculation 13.22 mg/dL (5.00-40.00)
== END 2022-03-04 10:21 | disposition home or self-care (01) ==
LOC: EC 08:29 → 6NMEDSUR 10:15
PROVIDERS: ADMIT Internal Medicine; ATTEND Internal Medicine
DX: R07.89 Other chest pain (principal); I25.10 Atherosclerotic heart disease of native coronary artery without angina pectoris; M79.661 Pain in right lower leg; R09.89 Other specified symptoms and signs involving the circulatory and respiratory systems; F17.210 Nicotine dependence, cigarettes, uncomplicated; J44.9 Chronic obstructive pulmonary disease, unspecified; I69.351 Hemiplegia and hemiparesis following cerebral infarction affecting right dominant side; I10 Essential (primary) hypertension; E78.5 Hyperlipidemia, unspecified; I25.2 Old myocardial infarction; G89.29 Other chronic pain; M47.9 Spondylosis, unspecified; M19.90 Unspecified osteoarthritis, unspecified site; R73.9 Hyperglycemia, unspecified; F32.A Depression, unspecified; F41.9 Anxiety disorder, unspecified; Z79.02 Long term (current) use of antithrombotics/antiplatelets; Z95.5 Presence of coronary angioplasty implant and graft; Z79.899 Other long term (current) drug therapy; Z71.6 Tobacco abuse counseling; Z91.81 History of falling; Z80.1 Family history of malignant neoplasm of trachea, bronchus and lung; Z81.2 Family history of tobacco abuse and dependence
CPT/HCPCS: 96376 ×2; 96365; 96366 ×2; 96375; 99285; 36415; 94640; 93005; 80061; 80053 ×2; 84443; 83735; 84484; 85025 ×2; 85610; 85730 ×2; 83036; 71046; 93922; 93970; G0378 ×2; J1644 ×3; C9113

== ENCOUNTER 2023-04-13 14:09 | Observation (INO) | payer MEDICARE, OTHER ==
[2023-04-13] MEDS: ASPIRIN 81 MG PO STA (14:39)
[2023-04-13] MEDS: NITROGLYCERIN OINT 1 INCH/GM PACKET TOPICAL STA (14:39)
--- NOTE | 2023-04-13 14:42 | ED ---
General Adult HPI - General Chief complaint: Chest Pain Stated complaint: Chest Pain Time Seen by Provider: 04/13/23 14:09 Source: patient, RN notes reviewed, old records reviewed Mode of arrival: EMS Limitations: no limitations - History of Present Illness Initial comments: This is a 58-year-old male with a past medical history significant for 3 or 4 s tents in his heart. Patient is a smoker has high blood pressure and high cholesterol as very strong family history. Patient comes in today because since 8:00 this morning has been having chest pain that radiates up into his right shoulder and into his neck. Patient states he is also been short of breath and a little bit diaphoretic. Patient also complains of mild nausea and lightheadedness. Patient denies a headache patient has numbness weakness. Patient states he took nitroglycerin at home but did not take the pain away. Patient did not take any aspirin nor did EMS give him any aspirin. Patient denies any abdominal pain. Patient states the pain is barely there at all now. Patient denies any swelling to legs or calf tenderness. Patient Nuys any injury or trauma. Patient denies any reproducible chest pain - Related Data Home Medications Medication Instructions Recorded Confirmed Atorvastatin Calcium [Lipitor] 40 mg PO DAILY 03/03/22 04/13/23 Ibuprofen [Motrin] 800 mg PO TID PRN 03/03/22 04/13/23 Isosorbide Mononitrate ER [Imdur] 60 mg PO DAILY 03/03/22 04/13/23 Albuterol Sulfate [Albuterol 2 puff PO RT-Q4H PRN 04/13/23 04/13/23 Sulfate Hfa] Allergies Allergy/AdvReac Type Severity Reaction Status Date / Time No Known Allergies Allergy Verified 04/13/23 15:48 Review of Systems ROS Statement: Those systems with pertinent positive or pertinent negative responses have been documented in the HPI. ROS Other: All systems not noted in ROS Statement are negative. Past Medical History Past Medical History: Coronary Artery Disease (CAD), Chest Pain / Angina, COPD, CVA/TIA, Hyperlipidemia, Hypertension, Myocardial Infarction ([place]), Osteoarthritis (OA) Additional Past Medical History / Comment(s): CVA with R sided weakness/occasionally R leg "gives out" and pt falls, TIAs, arthritis in upper back/chronic pain, Last Myocardial Infarction Date:: 04/2012 History of Any Multi-Drug Resistant Organisms: None Reported Past Surgical History: Heart Catheterization With Stent Additional Past Surgical History / Comment(s): PC Past Anesthesia/Blood Transfusion Reactions: No Reported Reaction Date of Last Stent Placement:: 04/2012 Past Psychological History: No Psychological Hx Reported Smoking Status: Current every day smoker Past Alcohol Use History: Occasional Past Drug Use History: None Reported - Past Family History Father Family Medical History: Cancer Additional Family Medical History / Comment(s): Father had lung cancer and at the age of 67yrs. He was a smoker. General Exam - General Exam Comments Initial Comments: GENERAL: Patient is well-developed and well-nourished. Patient is nontoxic and well- hydrated and is in mild distress. ENT: Neck is soft and supple. No significant lymphadenopathy is noted. Oropharynx is clear. Moist mucous membranes. Neck has full range of motion without eliciting any pain. EYES: The sclera were anicteric and conjunctiva were pink and moist. Extraocular movements were intact and pupils were equal round and reactive to light. Eyelids were unremarkable. PULMONARY: Unlabored respirations. Good breath sounds bilaterally. No audible rales rhonchi or wheezing was noted. CARDIOVASCULAR: There is a regular rate and rhythm without any murmurs gallops or rubs. ABDOMEN: Soft and nontender with normal bowel sounds. SKIN: Skin is clear with no lesions or rashes and otherwise unremarkable. NEUROLOGIC: Patient is alert and oriented x3. Cranial nerves II through XII are grossly intact. Motor and sensory are also intact. Normal speech, volume and content. Symmetrical smile. MUSCULOSKELETAL: Normal extremities with adequate strength and full range of motion. LYMPHATICS: No significant lymphadenopathy is noted PSYCHIATRIC: Normal psychiatric evaluation. Limitations: no limitations Course Vital Signs 04/13/23 04/13/23 14:24 15:16 Temperature 98.7 F Pulse Rate 57 L 60 Respiratory 16 16 Rate Blood Pressure 125/87 107/72 O2 Sat by Pulse 99 99 Oximetry Medical Decision Making - Medical Decision Making EKG is interpreted by myself but EKG shows a sinus bradycardia 59 bpm parables 165 QRS is 99 QT interval is 401 QTc is 400. Patient EKG shows no ST segment elevation or depression. Was pt. sent in by a medical professional or institution (, PA, MEDICAL OR SURGICAL INSTRUMENT MAKER, urgent care, hospital, or fci...) When possible be specific @ -No Did you speak to anyone other than the patient for history (EMS, parent, family, police, friend...)? What history was obtained from this source @ -No Did you review nursing and triage notes (agree or disagree)? Why? @ -I reviewed and agree with nursing and triage notes Were old charts reviewed (outside hosp., previous admission, EMS record, old EKG, old radiological studies, urgent care reports/EKG's, fci records)? Report findings @ -I reviewed prior charts and prior lab work Differential Diagnosis (chest pain, altered mental status, abdominal pain women, abdominal pain men, vaginal bleeding, weakness, fever, dyspnea, syncope, headache, dizziness, GI bleed, back pain, seizure, CVA, palpatations, mental health, musculoskeletal)? @ -Differential Chest Pain: Stable Angina, Unstable Angina, STEMI, NSTEMI Aortic Dissection, Pneumothorax, Musculoskeletal, Esophageal Spasm GERD, Cholecystitis, Pancreatitis, Zoster, this is not meant to be an all-inclusive list. EKG interpreted by me (3pts min.). @ -As above X-rays interpreted by me (1pt min.). @ -Chest x-ray shows no acute abnormality CT interpreted by me (1pt min.). @ -None done U/S interpreted by me (1pt. min.). @ -None done What testing was considered but not performed or refused? (CT, X-rays, U/S, labs)? Why? @ -None What meds were considered but not given or refused? Why? @ -None Did you discuss the management of the patient with other professionals (professionals i.e. , PA, MEDICAL OR SURGICAL INSTRUMENT MAKER, lab, RT, psych nurse, foster care social worker, sales appointment coordinator, teacher, low altitude air defense officer, showcase maker)? Give summary @ -I spoke with sound physician and they agreed to admit the patient Was smoking cessation discussed for >3mins.? @ -No Was critical care preformed (if so, how long)? @ -No Were there social determinants of health that impacted care today? How? (Homelessness, low income, unemployed, alcoholism, drug addiction, transportation, low edu. Level, literacy, decrease access to med. care, skilled nursing, rehab)? @ -No Was there de-escalation of care discussed even if they declined (Discuss DNR or withdrawal of care, Hospice)? DNR status @ -No What co-morbidities impacted this encounter? (DM, HTN, Smoking, COPD, CAD, Cancer, CVA, ARF, Chemo, Hep., AIDS, mental health diagnosis, sleep apnea, morbid obesity)? @ -None Was patient admitted / discharged? Hospital course, mention meds given and route, prescriptions, significant lab abnormalities, going to OR and other pertinent info. @ -Patient was not having chest pain while in the emergency department. Patient's lab work came back within normal range. Patient will be [facility] to [facility]. I will write admitting orders and I will consult cardiology @ -No Drug Therapy requiring intensive monitoring for toxicity (Heparin, Nitro, Insulin, Cardizem)? @ -No Were any procedures done? @ -No Diagnosis/symptom? @ -Chest pain Acute, or Chronic, or Acute on Chronic? @ -Acute Uncomplicated (without systemic symptoms) or Complicated (systemic symptoms)? @ -Complicated Side effects of treatment? @ -No Exacerbation, Progression, or Severe Exacerbation? @ -No Poses a threat to life or bodily function? How? (Chest pain, [place], [place], pneumonia, PE, COPD, DKA, ARF, appy, cholecystitis, CVA, Diverticulitis, Homicidal, Suicidal, threat to staff... and all critical care pts) @ -Yes because it can lead to endorgan dysfunction - Lab Data Result diagrams: 04/13/23 14:32 04/13/23 14:32 Lab Results 04/13/23 04/13/23 04/13/23 Range/Units 14:32 14:32 14:32 WBC 5.7 (3.8-10.6) k/uL RBC 4.08 L (4.30-5.90) m/uL Hgb 13.7 (13.0-17.5) gm/dL Hct 41.2 (39.0-53.0) % MCV 100.9 H (80.0-100.0) fL MCH 33.6 (25.0-35.0) pg MCHC 33.3 (31.0-37.0) g/dL RDW 13.3 (11.5-15.5) % Plt Count 223 (150-450) k/uL MPV 8.8 Neutrophils % 58 % Lymphocytes % 29 % Monocytes % 8 % Eosinophils % 3 % Basophils % 0 % Neutrophils # 3.3 (1.3-7.7) k/uL Lymphocytes # 1.7 (1.0-4.8) k/uL Monocytes # 0.4 (0-1.0) k/uL Eosinophils # 0.2 (0-0.7) k/uL Basophils # 0.0 (0-0.2) k/uL Macrocytosis Slight PT 10.3 (10.0-12.5) sec INR 0.9 (<1.2) APTT 22.7 (22.0-30.0) sec Sodium 139 (137-145) mmol/L Potassium 3.9 (3.5-5.1) mmol/L Chloride 110 H (98-107) mmol/L Carbon Dioxide 24 (22-30) mmol/L Anion Gap 5 mmol/L BUN 9 (9-20) mg/dL Creatinine 0.57 L (0.66-1.25) mg/dL Est GFR (CKD-EPI)AfAm >90 (>60 ml/min/1.73 sqM) Est GFR (CKD-EPI)NonAf >90 (>60 ml/min/1.73 sqM) Glucose 101 H (74-99) mg/dL Calcium 8.5 (8.4-10.2) mg/dL Magnesium 2.0 (1.6-2.3) mg/dL Total Bilirubin 0.7 (0.2-1.3) mg/dL AST 26 (17-59) U/L ALT 18 (4-49) U/L Alkaline Phosphatase 72 (38-126) U/L Troponin I (0.000-0.034) ng/mL Total Protein 6.0 L (6.3-8.2) g/dL Albumin 3.6 (3.5-5.0) g/dL 04/13/23 Range/Units 14:32 WBC (3.8-10.6) k/uL RBC (4.30-5.90) m/uL Hgb (13.0-17.5) gm/dL Hct (39.0-53.0) % MCV (80.0-100.0) fL MCH (25.0-35.0) pg MCHC (31.0-37.0) g/dL RDW (11.5-15.5) % Plt Count (150-450) k/uL MPV Neutrophils % % Lymphocytes % % Monocytes % % Eosinophils % % Basophils % % Neutrophils # (1.3-7.7) k/uL Lymphocytes # (1.0-4.8) k/uL Monocytes # (0-1.0) k/uL Eosinophils # (0-0.7) k/uL Basophils # (0-0.2) k/uL Macrocytosis PT (10.0-12.5) sec INR (<1.2) APTT (22.0-30.0) sec Sodium (137-145) mmol/L Potassium (3.5-5.1) mmol/L Chloride (98-107) mmol/L Carbon Dioxide (22-30) mmol/L Anion Gap mmol/L BUN (9-20) mg/dL Creatinine (0.66-1.25) mg/dL Est GFR (CKD-EPI)AfAm (>60 ml/min/1.73 sqM) Est GFR (CKD-EPI)NonAf (>60 ml/min/1.73 sqM) Glucose (74-99) mg/dL Calcium (8.4-10.2) mg/dL Magnesium (1.6-2.3) mg/dL Total Bilirubin (0.2-1.3) mg/dL AST (17-59) U/L ALT (4-49) U/L Alkaline Phosphatase (38-126) U/L Troponin I <0.012 (0.000-0.034) ng/mL Total Protein (6.3-8.2) g/dL Albumin (3.5-5.0) g/dL Disposition Clinical Impression: Chest pain Disposition: ADMITTED IP TO THIS [facility] Referrals: None,Stated [Primary Care Provider] - 1-2 days Time of Disposition: 16:35
[2023-04-13 14:46] LABS: Basophils % (A) 0 %; Eosinophils # (A) 0.2 k/uL (0-0.7); Eosinophils % (A) 3 %; HCT 41.2 % (39.0-53.0); HGB 13.7 gm/dL (13.0-17.5); Lymphocytes # (A) 1.7 k/uL (1.0-4.8); Lymphocytes % (A) 29 %; MCH 33.6 pg (25.0-35.0); MCHC 33.3 g/dL (31.0-37.0); MCV 100.9 fL (80.0-100.0); Macrocytosis Slight; Mean Platelet Volume 8.8; Monocytes # (A) 0.4 k/uL (0-1.0); Monocytes % (A) 8 %; Neutrophils # (A) 3.3 k/uL (1.3-7.7); Neutrophils % (A) 58 %; Platelet Count 223 k/uL (150-450); RBC 4.08 m/uL (4.30-5.90); RDW 13.3 % (11.5-15.5); WBC 5.7 k/uL (3.8-10.6)
[2023-04-13 14:55] LABS: INR 0.9 (<1.2); Partial Thromboplastin Time 22.7 sec (22.0-30.0); Prothrombin Time 10.3 sec (10.0-12.5)
[2023-04-13 14:59] LABS: ALT 18 U/L (4-49); AST 26 U/L (17-59); African American GFR (CKD) >90 (>60 ml/min/1.73 sqM); Albumin 3.6 g/dL (3.5-5.0); Alkaline Phosphatase 72 U/L (38-126); Anion Gap 5 mmol/L; Blood Urea Nitrogen 9 mg/dL (9-20); Calcium 8.5 mg/dL (8.4-10.2); Carbon Dioxide 24 mmol/L (22-30); Chloride 110 mmol/L (98-107); Glucose 101 mg/dL (74-99); Non-African American GFR(CKD) >90 (>60 ml/min/1.73 sqM); Potassium 3.9 mmol/L (3.5-5.1); Sodium 139 mmol/L (137-145); Total Bilirubin 0.7 mg/dL (0.2-1.3)
[2023-04-13] MEDS ORDERED: CALCIUM CARBONATE 500 MG CHEWABLE PO PRN (16:00)
[2023-04-13] MEDS ORDERED: MELATONIN 3 MG TABLET PO PRN (16:00)
[2023-04-13] MEDS ORDERED: MORPHINE SULFATE 2 MG/ML SYRINGE IVP PRN (16:00)
[2023-04-13] MEDS ORDERED: DOCUSATE 100 MG CAP PO PRN (16:00)
[2023-04-13] MEDS ORDERED: NALOXONE 0.4 MG/ML 1 ML VIAL IV PRN (16:00)
[2023-04-13] MEDS ORDERED: ONDANSETRON 4 MG/2 ML VIAL IVP PRN (16:00)
[2023-04-13] MEDS ORDERED: ACETAMINOPHEN TAB 325 MG TAB PO PRN (16:00)
--- NOTE | 2023-04-13 16:05 | XR ---
EXAMINATION TYPE: XR chest 2V DATE OF EXAM: 04/13/2023 COMPARISON: 03/03/2022 HISTORY: 58-year-old male with chest pain TECHNIQUE: PA and lateral views FINDINGS: The cardiomediastinal silhouette, aorta, and pulmonary vasculature are within normal limits. Mild hyp erinflation. Otherwise, lungs and pleural spaces are clear. IMPRESSION: Mild hyperinflation may relate to a depth of inspiration or underlying emphysema. Otherwise, no acute cardiopulmonary process.
[2023-04-13] MEDS ORDERED: NITROGLYCERIN SL TABS 0.4 MG TAB SUBLINGUAL PRN (16:35)
--- NOTE | 2023-04-13 16:46 | P.HPIM ---
History of Present Illness H&P Date: 04/13/23 58 year old M with PMH CAD post stent, CVA with right sided weakness, smoker, hypertension, dyslipidemia presents to the ED. Chest pain started this morning while drinking coffee. Left sided, pressure like, radiation to the left arm. Associated with shortness of breath and diaphoresis. Took some SL nitro which helped his pain. Spent yesterday moving multiple refridgerators. Smokes 1/2 pack cigarettes daily since age 14. These symptoms prompted him to come to the ED. In the ED he underwent extensive evaluation. BP 125/87 HR 57 T 98.7F 99% on RA RR 16. CBC RBC 4.08 MCV 100.9. Coag panel within normal limits. CMP Cl 110, Cr 0.57, glu 101, total protein 6. Troponin < 0.012. EKG sinus bradycardia. CXR no acute findings. Stress test 08/2018 negative. Patient is admitted for chest pain, r/o ACS, Cardiology evaluation. General: non toxic, no distress, appears at stated age Derm: warm, dry Head: atraumatic, normocephalic Eyes: EOMI, no lid lag, anicteric sclera Cardiovascular: S1S2 reg, no murmur Lungs: Decreased BS bilateral, no rhonchi, no rales , no accessory muscle use Ext: no gross muscle atrophy, no edema, no contractures Neuro: no focal neuro deficits Psych: Alert, oriented, appropriate affect Based on my assessment of this patient, this patient meets a high complexity level of care. Patient has an acute diagnosis of chest pain with history of CAD that poses a threat to life or bodily function. Chest pain: Trend Trop/EKG to rule out ACS. ASA 81 mg PO QD. Plavix 75 mg PO QD. Lipitor 40 mg PO QD. Hold beta dilshad due to bradycardia. Obtain Echo. Telemetry monitoring. Cardiology consult. Macrocytosis: Obtain B12, Folate. Smoker: Encouraged to quit. Offer nicotine patch. History of CAD post stents: ASA and Lipitor as above. History of CVA with right sided weakness: ASA and Lipitor as above. Hypertension: Imdur 60 mg PO QD. Dyslipidemia: Lipitor as above. CODE STATUS: FULL CODE DVT Prophylaxis: Heparin SQ GI Prophylaxis: Designated medical POA if patient is not able to make medical decisions for themselves: I have reviewed the following solutions consultant notes: I have reviewed the results of the following tests: As above. I have ordered the following tests: As above. I have discussed the care of this patient with the following independent historian: I have independently interpreted the following test below: EKG. CXR. I have discussed the management of this patient with the following physician: ED provider in detail. Past Medical History Past Medical History: Coronary Artery Disease (CAD), Chest Pain / Angina, COPD, CVA/TIA, Hyperlipidemia, Hypertension, Myocardial Infarction ([place]), Osteoarthritis (OA) Additional Past Medical History / Comment(s): CVA with R sided weakness/occasionally R leg "gives out" and pt falls, TIAs, arthritis in upper back/chronic pain, Last Myocardial Infarction Date:: 04/2012 History of Any Multi-Drug Resistant Organisms: None Reported Past Surgical History: Heart Catheterization With Stent Additional Past Surgical History / Comment(s): PC Past Anesthesia/Blood Transfusion Reactions: No Reported Reaction Date of Last Stent Placement:: 04/2012 Past Psychological History: No Psychological Hx Reported Smoking Status: Current every day smoker Past Alcohol Use History: Occasional Past Drug Use History: None Reported - Past Family History Father Family Medical History: Cancer Additional Family Medical History / Comment(s): Father had lung cancer and at the age of 67yrs. He was a smoker. Medications and Allergies Home Medications Medication Instructions Recorded Confirmed Type Atorvastatin Calcium [Lipitor] 40 mg PO DAILY 03/03/22 04/13/23 History Ibuprofen [Motrin] 800 mg PO TID PRN 03/03/22 04/13/23 History Isosorbide Mononitrate ER [Imdur] 60 mg PO DAILY 03/03/22 04/13/23 History Albuterol Sulfate [Albuterol 2 puff PO RT-Q4H PRN 04/13/23 04/13/23 History Sulfate Hfa] Allergies Allergy/AdvReac Type Severity Reaction Status Date / Time No Known Allergies Allergy Verified 04/13/23 15:48 Physical Exam Vitals: Vital Signs Temp Pulse Resp BP Pulse Ox 04/13/23 15:16 60 16 107/72 99 04/13/23 14:24 98.7 F 57 L 16 125/87 99 Intake and Output 04/13/23 04/13/23 04/13/23 06:59 14:59 22:59 Other: Weight 63.503 kg Results CBC & Chem 7: 02/19/24 14:32 04/13/23 14:32 Labs: Abnormal Lab Results - Last 24 Hours (Table) 04/13/23 04/13/23 Range/Units 14:32 14:32 RBC 4.08 L (4.30-5.90) m/uL MCV 100.9 H (80.0-100.0) fL Chloride 110 H (98-107) mmol/L Creatinine 0.57 L (0.66-1.25) mg/dL Glucose 101 H (74-99) mg/dL Total Protein 6.0 L (6.3-8.2) g/dL
[2023-04-13] MEDS: NITROGLYCERIN OINT 1 INCH/GM PACKET TOPICAL SCH (17:19)
--- NOTE | 2023-04-14 07:28 | CA ---
Transthoracic Echo Report Name: Sudhakar Malone Age: 58 Gender: M : 1965 Exam Date: 04/13/2023 18:03 Exam Location: [place] Echo Ht (in): 66 Wt (lb): 140 Ordering Physician: Enoch Maldonado MD Attending/Referring Phys: Speech Language Pathologist Travel Soila Hamm RDCS Procedure CPT: Indications: Chest Pain Cardiac Hx: Technical Quality: Fair Contrast 1: Total Dose (mL): Contrast 2: Total Dose (mL): MEASUREMENTS (Male / Female) Normal Values 2D ECHO LV Diastolic Diameter PLAX 3.3 cm 4.2 - 5.9 / 3.9 - 5.3 cm LV Systolic Diameter PLAX 2.5 cm IVS Diastolic Thickness 1.5 cm 0.6 - 1.0 / 0.6 - 0.9 cm LVPW Diastolic Thickness 1.4 cm 0.6 - 1.0 / 0.6 - 0.9 cm LV Relative Wall Thickness 0.9 RV Internal Dim ED PLAX 3.7 cm LA Volume 40.6 cm??? 18 - 58 / 22 - 52 cm??? LA Volume Index 23.6 cm???/m??? 16 - 28 cm???/m??? M-MODE Aortic Root Diameter MM 2.7 cm LA Systolic Diameter MM 3.7 cm LA Ao Ratio MM 1.4 AV Cusp Separation MM 2.2 cm DOPPLER AV Peak Velocity 142.5 cm/s AV Peak Gradient 8.1 mmHg AV Mean Velocity 90.2 cm/s AV Mean Gradient 3.7 mmHg AV Velocity Time Integral 30.2 cm LVOT Peak Velocity 76.2 cm/s LVOT Peak Gradient 2.3 mmHg LVOT Velocity Time Integral 17.6 cm MV Area PHT 2.9 cm??? Mitral E Point Velocity 71.6 cm/s Mitral A Point Velocity 95.3 cm/s Mitral E to A Ratio 0.8 MV Deceleration Time 257.6 ms MV E' Velocity 7.6 cm/s Mitral E to MV E' Ratio 9.4 FINDINGS Left Ventricle Moderately increased left ventricular wall thickness. Left ventricular cavity size normal. Hypokinetic inferior wall. Left ventricular ejection fraction is estimated at 45-50 %. Right Ventricle Mild right ventricular dilatation. Right ventricular systolic pressure within normal limits. Right Atrium Normal right atrial size. Left Atrium Normal left atrial size. Mitral Valve Structurally normal mitral valve. Mitral valve thickened. Mild mitral annular calcification. Trace to mild mitral regurgitation. Aortic Valve Trileaflet aortic valve. No aortic valve stenosis or regurgitation. Tricuspid Valve Structurally normal tricuspid valve. Trace to mild tricuspid regurgitation. Pulmonic Valve Structurally normal pulmonic valve. Pericardium No pericardial effusion. Aorta Normal size aortic root and proximal ascending aorta. CONCLUSIONS 1. Mildly impaired left ventricle systolic function with inferior wall hypokinesis 2. Trace to mild mitral and tricuspid regurgitation Previewed by: Dr. Roosevelt Jimenez MD (Electronically Signed) Final Date: 14 April 2023 07:27
[2023-04-14] MEDS ORDERED: AMINOPHYLLINE 500 MG/20 ML VIAL IV PRN (07:48)
[2023-04-14] MEDS ORDERED: CAFFEINE CITRATE 60 MG/3 ML VIAL IV PRN (07:48)
[2023-04-14] MEDS ORDERED: REGADENOSON 0.4 MG/5 ML SYRINGE IV PRN (07:48)
--- NOTE | 2023-04-14 09:10 | P.CRDCN ---
History of Present Illness Consult date: 04/14/23 Consult reason: chest pain History of present illness: History of present illness: This is a 58-year-old male with past medical history significant for coronary artery disease and prior stenting with unknown details, the stenting were performed at [facility] under the care of Dr. Ha but has not seen him for a year and a half. He also has history of hypertension, dyslipidemia, COPD, TIA, active tobacco use of one pack per day for 35 years now cutting back to half a pack per day. No history of diabetes. We have been asked to evaluate the patient for chest pain. Patient states that he was moving refrigerator and he developed chest pain that lasted for couple hours. He has had this in the past. The pain was tight and sore. It is completely resolved. He denies any shortness of breath or dyspnea on exertion. No palpitations. No lightheadedness or dizziness. No syncopal episodes. No blood in his stools or urine. No seizure activity. He drinks caffeine daily. Alcohol intake is about 3 times per week. EKG sinus rhythm 59 bpm Chest x-ray: No acute cardiopulmonary process. WBC 5.7, hemoglobin 13.7, platelet count 223. INR 0.9. Sodium 139, potassium 3.9, chloride 110, CO2 24, BUN 9, creatinine 0.57. Blood sugar 101. Troponin negative x 3. Liver function test are negative. Magnesium 2. Home cardiac medications: Atorvastatin 40 mg daily, Imdur 60 mg daily. Lexiscan stress test performed 09/01/2018 revealed no evidence of reversible ischemia. Review Of Systems: At the time of my exam: CONSTITUTIONAL: Denies fever or chills. HEENT: Denies blurred vision, vision changes, or eye pain. Denies hemoptysis CARDIOVASCULAR: Denies chest pain. Denies orthopnea. Denies PND. Denies palpitations RESPIRATORY: Denies shortness of breath. GASTROINTESTINAL: Denies abdominal pain. Denies nausea or vomiting. HEMATOLOGIC: Denies bleeding disorders. GENITOURINARY: Denies any blood in urine. SKIN: Denies pruitis. Denies rash. Physical examination: Gen: This is a thin 58-year-old male in no acute distress VS: reviewed HEENT: Head is atraumatic, normocephalic. Pupils equal, round. Sclerae is anicteric. NECK: Supple. No JVD. No carotid bruit. LUNGS: Clear to auscultation. No wheezes or rhonchi. No intercostal retractions. HEART: Regular rate and rhythm. Systolic murmur. ABDOMEN: Soft No tenderness. EXTREMITIES: No pedal edema. No calf tenderness. NEUROLOGICAL: Patient is awake, alert and oriented x3. Assessment: ASSESSMENT Chest pain, acute coronary syndrome ruled out History of coronary artery disease with previous stents Hypertension Dyslipidemia Peripheral vascular disease COPD Chronic nicotine dependence PLAN Resume cardiac medications Obtain Lexiscan stress test today Obtain 2D echocardiogram Discontinue Nitropaste If stress test and echocardiogram are unremarkable, patient is cleared for discharge and may follow-up with his primary urologist in 1 to 2 weeks. Smoking cessation highly recommended and discussed with the patient. Thank you kindly for this consultation. Nurse practitioner note has been reviewed, I agree with documented findings and plan of care. Patient was seen and examined. Past Medical History Past Medical History: Coronary Artery Disease (CAD), Chest Pain / Angina, COPD, CVA/TIA, Hyperlipidemia, Hypertension, Myocardial Infarction ([place]), Osteoarthritis (OA) Additional Past Medical History / Comment(s): CVA with R sided weakness/occasionally R leg "gives out" and pt falls, TIAs, arthritis in upper back/chronic pain, Last Myocardial Infarction Date:: 04/2012 History of Any Multi-Drug Resistant Organisms: None Reported Past Surgical History: Heart Catheterization With Stent Additional Past Surgical History / Comment(s): PC Past Anesthesia/Blood Transfusion Reactions: No Reported Reaction Date of Last Stent Placement:: 04/2012 Past Psychological History: No Psychological Hx Reported Smoking Status: Current every day smoker Past Alcohol Use History: Occasional Past Drug Use History: None Reported - Past Family History Father Family Medical History: Cancer Additional Family Medical History / Comment(s): Father had lung cancer and at the age of 67yrs. He was a smoker. Medications and Allergies Home Medications Medication Instructions Recorded Confirmed Type Atorvastatin Calcium [Lipitor] 40 mg PO DAILY 03/03/22 04/13/23 History Ibuprofen [Motrin] 800 mg PO TID PRN 03/03/22 04/13/23 History Isosorbide Mononitrate ER [Imdur] 60 mg PO DAILY 03/03/22 04/13/23 History Albuterol Sulfate [Albuterol 2 puff PO RT-Q4H PRN 04/13/23 04/13/23 History Sulfate Hfa] Allergies Allergy/AdvReac Type Severity Reaction Status Date / Time No Known Allergies Allergy Verified 04/13/23 15:48 Physical Exam Vitals: Vital Signs Temp Pulse Pulse Resp BP BP Pulse Ox 04/14/23 05:19 57 L 12 114/72 99 04/13/23 23:33 58 L 16 100/54 04/13/23 22:07 59 L 16 104/65 96 04/13/23 17:06 54 L 18 123/81 99 04/13/23 15:16 60 16 107/72 99 04/13/23 14:24 98.7 F 57 L 16 125/87 99 Results 04/13/23 14:32 04/13/23 14:32 Cardiac Enzymes 04/13/23 04/13/23 04/13/23 Range/Units 14:32 14:32 17:29 AST 26 (17-59) U/L Troponin I <0.012 <0.012 (0.000-0.034) ng/mL 04/13/23 Range/Units 20:37 AST (17-59) U/L Troponin I <0.012 (0.000-0.034) ng/mL Coagulation 04/13/23 Range/Units 14:32 PT 10.3 (10.0-12.5) sec APTT 22.7 (22.0-30.0) sec CBC 04/13/23 Range/Units 14:32 WBC 5.7 (3.8-10.6) k/uL RBC 4.08 L (4.30-5.90) m/uL Hgb 13.7 (13.0-17.5) gm/dL Hct 41.2 (39.0-53.0) % Plt Count 223 (150-450) k/uL Comprehensive Metabolic Panel 04/13/23 Range/Units 14:32 Sodium 139 (137-145) mmol/L Potassium 3.9 (3.5-5.1) mmol/L Chloride 110 H (98-107) mmol/L Carbon Dioxide 24 (22-30) mmol/L BUN 9 (9-20) mg/dL Creatinine 0.57 L (0.66-1.25) mg/dL Glucose 101 H (74-99) mg/dL Calcium 8.5 (8.4-10.2) mg/dL AST 26 (17-59) U/L ALT 18 (4-49) U/L Alkaline Phosphatase 72 (38-126) U/L Total Protein 6.0 L (6.3-8.2) g/dL Albumin 3.6 (3.5-5.0) g/dL Current Medications Generic Name Dose Route Start Last Admin Trade Name Freq PRN Reason Stop Dose Admin Acetaminophen 650 mg 04/13/23 16:00 Acetaminophen Tab 325 Mg Tab PO Q6HR PRN Mild Pain or Fever > 100.5 Aspirin 81 mg 04/14/23 09:00 Aspirin 81 Mg PO DAILY [facility] Atorvastatin Calcium 40 mg 04/14/23 09:00 Atorvastatin 40 Mg Tab PO DAILY [facility] Calcium Carbonate/Glycine 1,000 mg 04/13/23 16:00 Calcium Carbonate 500 Mg Chewable PO Q4HR PRN Dyspepsia Clopidogrel Bisulfate 75 mg 04/14/23 09:00 Clopidogrel 75 Mg Tab PO DAILY [facility] Docusate Sodium 100 mg 04/13/23 16:00 Docusate 100 Mg Cap PO BID PRN Constipation Enoxaparin Sodium 40 mg 04/14/23 09:00 Enoxaparin 40 Mg/0.4 Ml Syringe SQ DAILY [facility] Isosorbide Mononitrate 60 mg 04/14/23 09:00 Isosorbide Mononitrate Er 60 Mg Tab.Er.24h PO DAILY [facility] Melatonin 3 mg 04/13/23 16:00 Melatonin 3 Mg Tablet PO HS PRN Insomnia Morphine Sulfate 2 mg 04/13/23 16:00 Morphine Sulfate 2 Mg/Ml Syringe IVP Q4HR PRN Severe Pain (Scale 7 to 10) Naloxone HCl 0.2 mg 04/13/23 16:00 Naloxone 0.4 Mg/Ml 1 Ml Vial IV Q2M PRN Opioid Reversal Nitroglycerin 0.4 mg 04/13/23 16:35 Nitroglycerin Sl Tabs 0.4 Mg Tab SUBLINGUAL Q5M PRN Chest Pain Nitroglycerin 1 inch 04/13/23 18:00 04/14/23 06:00 Nitroglycerin Oint 1 Inch/Gm Packet TOPICAL 1 inch Q6HR [facility] Administration Ondansetron HCl 4 mg 04/13/23 16:00 Ondansetron 4 Mg/2 Ml Vial IVP Q8HR PRN Nausea And Vomiting 04/13/23 14:32 02/19/24 14:32
--- NOTE | 2023-04-14 10:41 | CA ---
Lexiscan Nuclear Stress Test Report Name: Sudhakar Malone Exam Date: 04/14/2023 10:10 Exam Location: [place] [facility] Ht (in): 66 Wt (lb): 140 BSA: 1.72 Ordering Phys: Justin Bailey Referring Phys: JUSTIN BAILEY Technologist: MANNY Age: 58 Gender: M : 1965 Procedure CPT: Indications: Reflex order-Stress test ICD-10 Codes: Patient History: Chest pain, short of breath and hypertension Medications: Meds past 24 hrs: Pretest Chest Pain: STRESS TEST Lexiscan Protocol Exercise Duration (min:sec): 01:[address] Depressions (mm): Angina Score: Pollack Score: Resting HR (bpm): 49 Peak HR (bpm): 88 Resting BP (mmHg): 120 / 78 Peak BP (mmHg): / 72 MPHR: 161 Target HR: 137 % MPHR: 55 METS: 1.0 Total Dose: Peak Dose: Atropine: Double Product: BP Response: Stress Termination: Reached target heart rate Stress Symptoms: No chest pain or symptoms Stress Summary: ECG ANALYSIS Resting ECG: Sinus rhythm. Normal conduction. No arrhythmias. Normal repolarization. Stress ECG: No ECG changes from baseline with Lexiscan infusion. CONCLUSIONS No ECG evidence of ischemia with Lexiscan infusion. Nuclear test results to follow. Dr. Roosevelt Jimenez MD (Electronically Signed) Final Date: 14 April 2023 10:41
[2023-04-14] MEDS: CLOPIDOGREL 75 MG TAB PO SCH (11:39)
[2023-04-14] MEDS: ENOXAPARIN 40 MG/0.4 ML SYRINGE SQ SCH (11:39)
[2023-04-14] MEDS: ATORVASTATIN 40 MG TAB PO SCH (11:39)
[2023-04-14] MEDS: ASPIRIN 81 MG PO SCH (11:39)
--- NOTE | 2023-04-14 11:48 | P.DS ---
Providers Date of admission: 04/13/23 16:02 Expected date of discharge: 04/14/23 Attending physician: Enoch Maldonado MD Consults: 04/13/23 16:01 Consult Physician Routine Consulting Provider: Paul Lopez Consult Reason/Comments: Chest pain Do you want consulting provider notified?: Yes Primary care physician: Stated None Hospital Course: 58 year old M with PMH CAD post stent, CVA with right sided weakness, smoker, hypertension, dyslipidemia presents to the ED. Chest pain started this morning while drinking coffee. Left sided, pressure like, radiation to the left arm. Associated with shortness of breath and diaphoresis. Took some SL nitro which helped his pain. Spent yesterday moving multiple refridgerators. Smokes 1/2 pack cigarettes daily since age 14. These symptoms prompted him to come to the ED. In the ED he underwent extensive evaluation. BP 125/87 HR 57 T 98.7F 99% on RA RR 16. CBC RBC 4.08 MCV 100.9. Coag panel within normal limits. CMP Cl 110, Cr 0.57, glu 101, total protein 6. Troponin < 0.012. EKG sinus bradycardia. CXR no acute findings. Stress test 08/2018 negative. Patient is admitted for chest pain, r/o ACS, Cardiology evaluation. Troponins < 0.012 x 3. Echo shows EF 45-50% mild MR/TR, inferior wall hypokinesis. Cardiology consulted, recommended stress test which is pending at the time of this note. 04/14: Patient was seen and examined. No more chest pain. Seen after stress test. Wants to go home. Plans to discharge home if stress test results are negative. General: non toxic, no distress, appears at stated age Derm: warm, dry Head: atraumatic, normocephalic Eyes: EOMI, no lid lag, anicteric sclera Cardiovascular: S1S2 reg, no murmur Lungs: Decreased BS bilateral, no rhonchi, no rales , no accessory muscle use Ext: no gross muscle atrophy, no edema, no contractures Neuro: no focal neuro deficits Psych: Alert, oriented, appropriate affect Discharge Diagnosis: Chest pain Macrocytosis Smoker History of CAD post stents History of CVA with right sided weakness Hypertension Dyslipidemia This complex discharge took 35 minutes to complete. Patient Condition at Discharge: Stable Plan - Discharge Summary Discharge Rx Participant: Yes New Discharge Prescriptions: No Action Isosorbide Mononitrate ER [Imdur] 60 mg PO DAILY Atorvastatin Calcium [Lipitor] 40 mg PO DAILY Ibuprofen [Motrin] 800 mg PO TID PRN PRN Reason: Pain Albuterol Sulfate [Albuterol Sulfate Hfa] 2 puff PO RT-Q4H PRN PRN Reason: Shortness Of Breath Discharge Medication List Atorvastatin Calcium [Lipitor] 40 mg PO DAILY 03/03/22 [History] Ibuprofen [Motrin] 800 mg PO TID PRN 03/03/22 [History] Isosorbide Mononitrate ER [Imdur] 60 mg PO DAILY 03/03/22 [History] Albuterol Sulfate [Albuterol Sulfate Hfa] 2 puff PO RT-Q4H PRN 04/13/23 [History] Follow up Appointment(s)/Referral(s): None,Stated [Primary Care Provider] - 1-2 days
[2023-04-14] MEDS: ISOSORBIDE MONONITRATE ER 60 MG TAB.ER.24H PO SCH (12:56)
[2023-04-14 13:33] LABS: Chol/HDL Ratio 2.06 Ratio; LDL Cholesterol,Calculated 77.6 mg/dL (0.0-131.0); VLDL Calculation 12.06 mg/dL (5.00-40.00)
[2023-04-14 14:16] VITALS: BP 117/74; PULSE 73; RESP 14; TEMP 97.4
--- NOTE | 2023-04-14 14:56 | NM ---
EXAMINATION TYPE: NM stress lexiscan cardiolite DATE OF EXAM: 04/14/2023 COMPARISON: 09/01/2018 CLINICAL INDICATION: Male, 58 years old with history of chest pain; TECHNIQUE: After the intravenous administration of 10.2 mCi Tc 99m Sestamibi - Cardiolite resting SP ECT images acquired 50 minutes post injection. The patient received 0.4mg Lexiscan, 25.8 mCi Tc 99m Sestamibi - Stress images obtained [address] injection FINDINGS: Review of stress and rest SPECT images demonstrates no distinct perfusion abnormality. There is artif act likely from gastric uptake involving the stress images inferior wall myocardium. A fixed defect i nvolving the blanco of the myocardium with no definite reversible uptake. This should be correlated cl inically. Gated analysis shows normal wall motion with an estimated left ventricular ejection fractio n of 52 %. IMPRESSION: No scintigraphic evidence for reversible ischemia.
== END 2023-04-14 15:43 | disposition home or self-care (01) ==
LOC: EC 14:09 → 6NMEDSUR 16:02
PROVIDERS: ADMIT Family Medicine; ATTEND Family Medicine
DX: R07.89 Other chest pain (principal); E78.00 Pure hypercholesterolemia, unspecified; I10 Essential (primary) hypertension; I25.10 Atherosclerotic heart disease of native coronary artery without angina pectoris; J44.9 Chronic obstructive pulmonary disease, unspecified; D75.89 Other specified diseases of blood and blood-forming organs; F17.210 Nicotine dependence, cigarettes, uncomplicated; I73.9 Peripheral vascular disease, unspecified; I25.2 Old myocardial infarction; I69.351 Hemiplegia and hemiparesis following cerebral infarction affecting right dominant side; Z95.5 Presence of coronary angioplasty implant and graft; Z79.02 Long term (current) use of antithrombotics/antiplatelets; Z79.82 Long term (current) use of aspirin; Z79.899 Other long term (current) drug therapy
CPT/HCPCS: 96372; 99285; 36415; 93005; 93017; 93306; 80061; 80053; 82607; 82746; 83735; 84484; 85025; 85610; 85730; 71046; 78452; G0378 ×2; A9500; J1650; J2785

== ENCOUNTER 2023-07-14 22:57 | Emergency (ER) | payer MEDICARE, OTHER ==
[2023-07-14 23:19] VITALS: TEMP 98.6
[2023-07-14 23:43] LABS: Basophils % (A) 1 %; Eosinophils # (A) 0.3 k/uL (0-0.7); Eosinophils % (A) 4 %; HCT 43.2 % (39.0-53.0); HGB 14.2 gm/dL (13.0-17.5); Lymphocytes # (A) 3.1 k/uL (1.0-4.8); Lymphocytes % (A) 46 %; MCH 33.8 pg (25.0-35.0); MCHC 32.9 g/dL (31.0-37.0); MCV 102.9 fL (80.0-100.0); Macrocytosis Slight; Mean Platelet Volume 9.3; Monocytes # (A) 0.5 k/uL (0-1.0); Monocytes % (A) 7 %; Neutrophils # (A) 2.6 k/uL (1.3-7.7); Neutrophils % (A) 40 %; Platelet Count 219 k/uL (150-450); RDW 13.5 % (11.5-15.5); WBC 6.7 k/uL (3.8-10.6)
[2023-07-14] MEDS: NICOTINE 21MG/24HR PATCH TRANSDERM STA (23:44)
[2023-07-14 23:52] LABS: ALT 23 U/L (4-49); AST 31 U/L (17-59); African American GFR (CKD) >90 (>60 ml/min/1.73 sqM); Albumin 3.7 g/dL (3.5-5.0); Alkaline Phosphatase 55 U/L (38-126); Anion Gap 7 mmol/L; Blood Urea Nitrogen 9 mg/dL (9-20); Calcium 8.3 mg/dL (8.4-10.2); Carbon Dioxide 24 mmol/L (22-30); Chloride 109 mmol/L (98-107); Glucose 83 mg/dL (74-99); Non-African American GFR(CKD) >90 (>60 ml/min/1.73 sqM); Sodium 140 mmol/L (137-145); Total Bilirubin 0.3 mg/dL (0.2-1.3); Total Protein 6.2 g/dL (6.3-8.2)
--- NOTE | 2023-07-14 23:55 | ED ---
Fall HPI - General Chief Complaint: Fall Stated Complaint: Altered mental, ETOH Time Seen by Provider: 07/14/23 23:04 Source: patient Mode of arrival: EMS - History of Present Illness Initial Comments: 58-year-old male presents to the ED status post fall. Patient reports he was in the shower when he slipped and fell. He does admit to drinking today. Patient is on blood thinners. Denies LOC at this time. Currently denies any injuries secondary to the fall. Denies any preceding chest pain shortness of breath or dizziness. Currently has no complaints. - Related Data Home Medications Medication Instructions Recorded Confirmed Ibuprofen [Motrin] 800 mg PO TID PRN 03/03/22 04/13/23 Albuterol Sulfate [Albuterol 2 puff PO RT-Q4H PRN 04/13/23 04/13/23 Sulfate Hfa] Previous Rx's Medication Instructions Recorded Aspirin 81 mg PO DAILY #30 tab 04/14/23 Atorvastatin Calcium [Lipitor] 40 mg PO DAILY #30 tab 04/14/23 Clopidogrel [Plavix] 75 mg PO DAILY #30 tab 04/14/23 Isosorbide Mononitrate ER [Imdur] 60 mg PO DAILY #30 tab 04/14/23 Allergies Allergy/AdvReac Type Severity Reaction Status Date / Time No Known Allergies Allergy Verified 04/13/23 15:48 Review of Systems ROS Statement: Those systems with pertinent positive or pertinent negative responses have been documented in the HPI. ROS Other: All systems not noted in ROS Statement are negative. Past Medical History Past Medical History: Coronary Artery Disease (CAD), Chest Pain / Angina, COPD, CVA/TIA, Hyperlipidemia, Hypertension, Myocardial Infarction (VT), Osteoarthritis (OA) Additional Past Medical History / Comment(s): CVA with R sided weakness/occas ionally R leg "gives out" and pt falls, TIAs, arthritis in upper back/chronic pain, Last Myocardial Infarction Date:: 04/2012 History of Any Multi-Drug Resistant Organisms: None Reported Past Surgical History: Heart Catheterization With Stent Additional Past Surgical History / Comment(s): PC Past Anesthesia/Blood Transfusion Reactions: No Reported Reaction Date of Last Stent Placement:: 04/2012 Past Psychological History: No Psychological Hx Reported Smoking Status: Current every day smoker Past Alcohol Use History: Occasional Past Drug Use History: None Reported - Past Family History Father Family Medical History: Cancer Additional Family Medical History / Comment(s): Father had lung cancer and at the age of 67yrs. He was a smoker. General Exam General appearance: alert, in no apparent distress Head exam: Present: other (No lozano signs or raccoon's eyes however there is a small laceration to the top of the head with no active bleeding.) Eye exam: Present: normal appearance, PERRL, EOMI Neck exam: Present: normal inspection Respiratory exam: Present: normal lung sounds bilaterally Cardiovascular Exam: Present: regular rate, normal rhythm GI/Abdominal exam: Present: soft Extremities exam: Present: other (Full active range of motion of bilateral upper lower extremities. Palpation shows no tenderness, step-off, crepitus, or obvi ous deformity. Radial pulses and DP/PT pulses intact bilaterally.) Back exam: Present: other (No midline spinal tenderness to palpation.) Neurological exam: Present: alert, oriented X3 Course Vital Signs 07/14/23 22:59 Temperature 98.6 F Pulse Rate 71 Respiratory 17 Rate Blood Pressure 105/78 O2 Sat by Pulse 96 Oximetry Medical Decision Making - Medical Decision Making Was pt. sent in by a medical professional or institution (, PA, [employer], urgent care, hospital, or [place] [facility]...) When possible be specific @ -No Did you speak to anyone other than the patient for history (EMS, parent, family, police, friend...)? What history was obtained from this source @ -No Did you review nursing and triage notes (agree or disagree)? Why? @ -I reviewed and agree with nursing and triage notes Were old charts reviewed (outside hosp., previous admission, EMS record, old EKG, old radiological studies, urgent care reports/EKG's, [place] [facility] records)? Report findings @ -No old charts were reviewed Differential Diagnosis (chest pain, altered mental status, abdominal pain women, abdominal pain men, vaginal bleeding, weakness, fever, dyspnea, syncope, headache, dizziness, GI bleed, back pain, seizure, CVA, palpatations, mental health, musculoskeletal)? @ -Differential Musculoskeletal Muscular strain, contusion, ligament sprain, fracture, arthritis, septic arthritis, bursitis, cellulitis, muscle spasm, nerve compression, DVT, arterial occlusion, herpes zoster, electrolyte abnormality, tumor.... This is not meant to be in all inclusive list EKG interpreted by me (3pts min.). @ -EKG interpreted me showing a sinus rhythm at [address] or T wave changes. RI 165, QRS 90, QT/QTc 387/408. X-rays interpreted by me (1pt min.). @ -None done CT interpreted by me (1pt min.). @ -CT brain and cervical spine interpreted me which revealed no evidence of acute process. U/S interpreted by me (1pt. min.). @ -None done What testing was considered but not performed or refused? (CT, X-rays, U/S, labs)? Why? @ -None What meds were considered but not given or refused? Why? @ -None Did you discuss the management of the patient with other professionals (professionals i.e. , PA, [employer], lab, RT, psych nurse, social sciences department chair, floor manager, teacher, combat systems officer, case resource manager)? Give summary @ -No Was smoking cessation discussed for >3mins.? @ -No Was critical care preformed (if so, how long)? @ -No Were there social determinants of health that impacted care today? How? (Homelessness, low income, unemployed, alcoholism, drug addiction, t ransportation, low edu. Level, literacy, decrease access to med. care, [place] [facility], rehab)? @ -No Was there de-escalation of care discussed even if they declined (Discuss DNR or withdrawal of care, Hospice)? DNR status @ -No What co-morbidities impacted this encounter? (DM, HTN, Smoking, COPD, CAD, Cance r, CVA, ARF, Chemo, Hep., AIDS, mental health diagnosis, sleep apnea, morbid obesity)? @ -Alcoholism Was patient admitted / discharged? Hospital course, mention meds given and route, prescriptions, significant lab abnormalities, going to OR and other pertinent info. @ -Discharge 58-year-old male on thinners presents to the ED with head injury after he slipp ed and fell in the shower. CT of the brain and cervical spine revealed no evidence of acute finding. At this time no other injuries. Would not like to have any additional testing. Discharged home in stable condition with a sober ride home. Discussed return precautions with patient and the son who verbalized agreement. Undiagnosed new problem with uncertain prognosis? @ -No Drug Therapy requiring intensive monitoring for toxicity (Heparin, Nitro, Insulin, Cardizem)? @ -No Were any procedures done? @ -No Diagnosis/symptom? @ -Status post mechanical fall with head injury on tenderness Acute, or Chronic, or Acute on Chronic? @ -Acute Uncomplicated (without systemic symptoms) or Complicated (systemic symptoms)? @ -Uncomplicated Side effects of treatment? @ -No Exacerbation, Progression, or Severe Exacerbation? @ -No Poses a threat to life or bodily function? How? (Chest pain, USA, VT, pneumonia, PE, COPD, DKA, ARF, appy, cholecystitis, CVA, Diverticulitis, Homicidal, Suicidal, threat to staff... and all critical care pts) @ -No - Lab Data Result diagrams: 07/14/23 23:22 07/14/23 23:22 Lab Results 07/14/23 07/14/23 Range/Units 23:22 23:22 WBC 6.7 (3.8-10.6) k/uL RBC 4.20 L (4.30-5.90) m/uL Hgb 14.2 (13.0-17.5) gm/dL Hct 43.2 (39.0-53.0) % MCV 102.9 H (80.0-100.0) fL MCH 33.8 (25.0-35.0) pg MCHC 32.9 (31.0-37.0) g/dL RDW 13.5 (11.5-15.5) % Plt Count 219 (150-450) k/uL MPV 9.3 Neutrophils % 40 % Lymphocytes % 46 % Monocytes % 7 % Eosinophils % 4 % Basophils % 1 % Neutrophils # 2.6 (1.3-7.7) k/uL Lymphocytes # 3.1 (1.0-4.8) k/uL Monocytes # 0.5 (0-1.0) k/uL Eosinophils # 0.3 (0-0.7) k/uL Basophils # 0.0 (0-0.2) k/uL Macrocytosis Slight Sodium 140 (137-145) mmol/L Potassium 4.0 (3.5-5.1) mmol/L Chloride 109 H (98-107) mmol/L Carbon Dioxide 24 (22-30) mmol/L Anion Gap 7 mmol/L BUN 9 (9-20) mg/dL Creatinine 0.58 L (0.66-1.25) mg/dL Est GFR (CKD-EPI)AfAm >90 (>60 ml/min/1.73 sqM) Est GFR (CKD-EPI)NonAf >90 (>60 ml/min/1.73 sqM) Glucose 83 (74-99) mg/dL Calcium 8.3 L (8.4-10.2) mg/dL Total Bilirubin 0.3 (0.2-1.3) mg/dL AST 31 (17-59) U/L ALT 23 (4-49) U/L Alkaline Phosphatase 55 (38-126) U/L Total Protein 6.2 L (6.3-8.2) g/dL Albumin 3.7 (3.5-5.0) g/dL Serum Alcohol 276 H* mg/dL Disposition Clinical Impression: Fall, Head injury Disposition: HOME SELF-CARE Condition: Good Instructions (If sedation given, give patient instructions): Fall Prevention (ED) Additional Instructions: Please return to the Emergency Department if symptoms worsen or any other concerns. Please follow-up with your primary care provider. Is patient prescribed a controlled substance at d/c from ED?: No Referrals: Luis Bonilla MD [Primary Care Provider] - 1-2 days Time of Disposition: 00:38
--- NOTE | 2023-07-15 00:06 | CT ---
EXAM: CT Head Without Intravenous Contrast CLINICAL HISTORY: ITS.REASON CT Reason: s/p fall shower head injury on thinners TECHNIQUE: Axial computed tomography images of the head/brain without intravenous contrast. CTDI is 45.2 mGy and DLP is 1011 mGy-cm. This CT exam was performed using one or more of the following dose reduction techniques: automated exposure control, adjustment of the mA and/or kV according to patient size, and/or use of iterative reconstruction technique. COMPARISON: No relevant prior studies available. FINDINGS: No acute intracranial hemorrhage. No midline shift or mass effect. The territorial macias-white matter differentiation is maintained throughout. The ventricles and sulci are commensurate with age. The visualized orbits appear grossly unremarkable. The calvarium is intact. The visualized paranasal sinuses and mastoid air cells are grossly clear. IMPRESSION: No acute intracranial hemorrhage, midline shift, or mass effect. EXAM: CT Cervical Spine Without Intravenous Contrast CLINICAL HISTORY: ITS.REASON CT Reason: s/p fall shower head injury on thinners TECHNIQUE: Axial computed tomography images of the cervical spine without intravenous contrast. CTDI is 8.5 mGy and DLP is 225.9 mGy-cm. This CT exam was performed using one or more of the following dose reduction techniques: automated exposure control, adjustment of the mA and/or kV according to patient size, and/or use of iterative reconstruction technique. COMPARISON: No relevant prior studies available. FINDINGS: The vertebral body heights are maintained. The craniocervical junction is intact. The atlanto-dens interval is maintained. The dens is intact. There is no spondylolisthesis. Multilevel cervical spondylosis and degenerative disc disease. Straightening of the cervical lordosis. The unenhanced neck soft tissues are grossly unremarkable. The visualized lung apices are grossly clear. IMPRESSION: No acute fracture or subluxation of the cervical spine.
[2023-07-15 00:17] LABS: Alcohol 276 mg/dL
[2023-07-15 01:14] VITALS: BP 99/65; PULSE 72; RESP 18
== END 2023-07-15 00:51 | disposition home or self-care (01) ==
LOC: EC 22:57
DX: S01.91XA Laceration without foreign body of unspecified part of head, initial encounter (principal); F10.20 Alcohol dependence, uncomplicated; F17.200 Nicotine dependence, unspecified, uncomplicated; Y90.8 Blood alcohol level of 240 mg/100 ml or more; W01.0XXA Fall on same level from slipping, tripping and stumbling without subsequent striking against object, initial encounter
CPT/HCPCS: 99285 ×2; 36415; 80053; 85025; 72125; 70450; G0480; S4990; 80320

== ENCOUNTER 2024-01-01 08:20 | Observation (INO) | payer MEDICARE, OTHER ==
--- NOTE | 2024-01-01 08:40 | ED ---
Chest Pain HPI - General Chief Complaint: Chest Pain Stated Complaint: chest pain Time Seen by Provider: 01/01/24 08:21 Source: patient, RN notes reviewed Mode of arrival: EMS Limitations: no limitations - History of Present Illness Initial Comments: 58-year-old male presents to the emergency department with chief complaint of chest pain. EMS states that he was in the shower about 30 minutes ago and developed chest pain and diaphoresis. He took a nitro and aspirin prior to EMS arrival, and his chest pain was relieved, EMS gave an additional Nitroglycerine and 324 of aspirin. Currently, he complains of right leg, arm, and face numbness and reports that prior to the Nitro, his chest pain was mid sternal.Patient had right arm and leg numbness is residual from a previous CVA. He also reports bilateral vision blurring and headache. His history is significant for [place] and stents around two years ago, and he states the CVA was four years ago. He denies shortness of breath, palpitations, syncope, and leg pain/swelling. He denies other complaints. - Related Data Home Medications Medication Instructions Recorded Confirmed Ibuprofen [Motrin] 800 mg PO TID PRN 03/03/22 04/13/23 Albuterol Sulfate [Albuterol 2 puff PO RT-Q4H PRN 04/13/23 04/13/23 Sulfate Hfa] Previous Rx's Medication Instructions Recorded Aspirin 81 mg PO DAILY #30 tab 04/14/23 Atorvastatin Calcium [Lipitor] 40 mg PO DAILY #30 tab 04/14/23 Clopidogrel [Plavix] 75 mg PO DAILY #30 tab 04/14/23 Isosorbide Mononitrate ER [Imdur] 60 mg PO DAILY #30 tab 04/14/23 Allergies Allergy/AdvReac Type Severity Reaction Status Date / Time No Known Allergies Allergy Verified 04/13/23 15:48 Review of Systems ROS Statement: Those systems with pertinent positive or pertinent negative responses have been documented in the HPI. ROS Other: All systems not noted in ROS Statement are negative. EKG Findings - EKG Comments: EKG Findings:: EKG performed at 8: 32 sinus rhythm with rate of 76 FL 151 QRS 104 QT/QTc 385/415 noted PVC. - EKG Results: EKG: interpreted by SHARAD Past Medical History Past Medical History: Coronary Artery Disease (CAD), Chest Pain / Angina, COPD, CVA/TIA, Hyperlipidemia, Hypertension, Myocardial Infarction ([place]), Osteoarthritis (OA) Additional Past Medical History / Comment(s): CVA with R sided weakness/occasionally R leg "gives out" and pt falls, TIAs, arthritis in upper back/chronic pain, Last Myocardial Infarction Date:: 04/2012 History of Any Multi-Drug Resistant Organisms: None Reported Past Surgical History: Heart Catheterization With Stent Additional Past Surgical History / Comment(s): PC Past Anesthesia/Blood Transfusion Reactions: No Reported Reaction Date of Last Stent Placement:: 04/2012 Past Psychological History: No Psychological Hx Reported Smoking Status: Current every day smoker Past Alcohol Use History: Heavy Past Drug Use History: None Reported - Past Family History Father Family Medical History: Cancer Additional Family Medical History / Comment(s): Father had lung cancer and at the age of 67yrs. He was a smoker. General Exam Limitations: no limitations General appearance: alert, in no apparent distress Head exam: Present: atraumatic, normocephalic, normal inspection Eye exam: Present: normal appearance, PERRL, EOMI. Absent: scleral icterus, conjunctival injection, periorbital swelling ENT exam: Present: normal exam, mucous membranes moist Neck exam: Present: normal inspection. Absent: tenderness, meningismus, lymphadenopathy Respiratory exam: Present: normal lung sounds bilaterally. Absent: respiratory distress, wheezes, rales, rhonchi, stridor Cardiovascular Exam: Present: regular rate, normal rhythm, normal heart sounds. Absent: systolic murmur, diastolic murmur, rubs, gallop, clicks GI/Abdominal exam: Present: soft, normal bowel sounds. Absent: distended, tenderness, guarding, rebound, rigid Extremities exam: Present: normal inspection, full ROM, normal capillary refill. Absent: tenderness, pedal edema, joint swelling, calf tenderness Back exam: Present: normal inspection Neurological exam: Present: alert, oriented X3, CN II-XII intact, motor sensory deficit Expanded Patient oriented to: Present: person, place, time Speech: Present: fluid speech Cranial nerves: EOM's Intact: Normal, Tongue Deviation: Normal, Facial Sensation: Abnormal Right (Numbness) Sensory exam: Upper Extremity Light Touch: Abnormal Right, Lower Extremity Light Touch: Abnormal Right Motor strength exam: RUE: 3, LUE: 5, RLE: 5, LLE: 5 Eye Response: (4) open spontaneously Motor Response: (6) obeys commands Verbal Response: (5) oriented Psychiatric exam: Present: normal affect, normal mood Skin exam: Present: warm, dry, intact, normal color. Absent: rash Course Vital Signs 01/01/24 01/01/24 01/01/24 08:23 09:29 10:00 Temperature 98.6 F Pulse Rate 90 75 86 Pulse Rate [ 80 Electronics Recycler ] Respiratory 20 20 20 Rate Blood Pressure 139/81 99/69 130/60 O2 Sat by Pulse 98 96 98 Oximetry 01/01/24 01/01/24 11:00 11:42 Temperature Pulse Rate 68 69 Pulse Rate [ Electronics Recycler ] Respiratory 20 16 Rate Blood Pressure 118/71 118/68 O2 Sat by Pulse 98 98 Oximetry Chest Pain MDM - MDM Was pt. sent in by a medical professional or institution (, PA, [employer], urgent care, hospital, or [facility]...) When possible be specific @ -No Did you speak to anyone other than the patient for history (EMS, parent, family, police, friend...)? What history was obtained from this source @ -No Did you review nursing and triage notes (agree or disagree)? Why? @ -I reviewed and agree with nursing and triage notes Were old charts reviewed (outside hosp., previous admission, EMS record, old EKG, old radiological studies, urgent care reports/EKG's, [facility] records)? Report findings @ -No old charts were reviewed Differential Diagnosis (chest pain, altered mental status, abdominal pain women, abdominal pain men, vaginal bleeding, weakness, fever, dyspnea, syncope, headache, dizziness, GI bleed, back pain, seizure, CVA, palpatations, mental health, musculoskeletal)? @ -Differential Chest Pain: Stable Angina, Unstable Angina, STEMI, NSTEMI Aortic Dissection, Pneumothorax, Musculoskeletal, Esophageal Spasm GERD, Cholecystitis, Pancreatitis, Zoster, this is not meant to be an all-inclusive list. EKG interpreted by me (3pts min.). @ -As above X-rays interpreted by me (1pt min.). @Chest x-ray shows no acute cardiopulmonary process CT interpreted by me (1pt min.). @ -CT brain showing no acute intracranial hemorrhage or mass effect U/S interpreted by me (1pt. min.). @ -None done What testing was considered but not performed or refused? (CT, X-rays, U/S, labs)? Why? @ -None What meds were considered but not given or refused? Why? @ -None Did you discuss the management of the patient with other professionals (professionals i.e. , PA, [employer], lab, RT, psych nurse, social worker health services, hvac project engineer, teacher, protection officer, case aide)? Give summary @ -[facility] for admission for chest pain rule out Was smoking cessation discussed for >3mins.? @ -No Was critical care preformed (if so, how long)? @ -No Were there social determinants of health that impacted care today? How? (Homelessness, low income, unemployed, alcoholism, drug addiction, transportation, low edu. Level, literacy, decrease access to med. care, care home, rehab)? @ -No Was there de-escalation of care discussed even if they declined (Discuss DNR or withdrawal of care, Hospice)? DNR status @ -No What co-morbidities impacted this encounter? (DM, HTN, Smoking, COPD, CAD, Cancer, CVA, ARF, Chemo, Hep., AIDS, mental health diagnosis, sleep apnea, morbid obesity)? @ -CAD, CVA Was patient admitted / discharged? Hospital course, mention meds given and route, prescriptions, significant lab abnormalities, going to OR and other pert inent info. @ -Admitted patient presented for chest pain patient has a significant cardiac history initial troponin is negative. Patient did have relief with nitro Nitropaste was applied patient was started on heparin given concern for ACS. Patient will have cardiology evaluation, repeat troponin, echocardiogram. Undiagnosed new problem with uncertain prognosis? @ -No Drug Therapy requiring intensive monitoring for toxicity (Heparin, Nitro, Insulin, Cardizem)? @ -Heparin Were any procedures done? @ -No Diagnosis/symptom? @ -Chest pain Acute, or Chronic, or Acute on Chronic? @ -Acute Uncomplicated (without systemic symptoms) or Complicated (systemic symptoms)? @ -Complicated Side effects of treatment? @ -No Exacerbation, Progression, or Severe Exacerbation? @ -No Poses a threat to life or bodily function? How? (Chest pain, [place], [place], pneumonia, PE, COPD, DKA, ARF, appy, cholecystitis, CVA, Diverticulitis, Homicidal, Suicidal, threat to staff... and all critical care pts) @ -[Yes underlying ACS causing cardiac arrest Disposition Clinical Impression: Chest pain Disposition: ADMITTED IP TO THIS HOSP Condition: Fair Time of Disposition: 11:45
[2024-01-01 08:49] LABS: Basophils % (A) 0 %; Eosinophils # (A) 0.1 k/uL (0-0.7); Eosinophils % (A) 2 %; HCT 46.8 % (39.0-53.0); HGB 15.2 gm/dL (13.0-17.5); Lymphocytes # (A) 1.2 k/uL (1.0-4.8); Lymphocytes % (A) 20 %; MCH 33.4 pg (25.0-35.0); MCHC 32.5 g/dL (31.0-37.0); Macrocytosis Slight; Monocytes # (A) 0.5 k/uL (0-1.0); Monocytes % (A) 8 %; Neutrophils # (A) 4.4 k/uL (1.3-7.7); Neutrophils % (A) 69 %; Platelet Count 297 k/uL (150-450); RBC 4.54 m/uL (4.30-5.90); RDW 13.3 % (11.5-15.5); WBC 6.3 k/uL (3.8-10.6)
[2024-01-01] MEDS: NITROGLYCERIN OINT 1 INCH/GM PACKET TOPICAL STA (08:49)
[2024-01-01] MEDS: SODIUM CHLORIDE 0.9% 1,000 ML IV ONE (08:49)
[2024-01-01 09:00] LABS: ALT 28 U/L (4-49); African American GFR (CKD) >90 (>60 ml/min/1.73 sqM); Albumin 4.2 g/dL (3.5-5.0); Anion Gap 4 mmol/L; Blood Urea Nitrogen 12 mg/dL (9-20); Calcium 8.8 mg/dL (8.4-10.2); Carbon Dioxide 28 mmol/L (22-30); Chloride 106 mmol/L (98-107); Glucose 94 mg/dL (74-99); Magnesium 1.9 mg/dL (1.6-2.3); Non-African American GFR(CKD) >90 (>60 ml/min/1.73 sqM); Sodium 138 mmol/L (137-145); Total Bilirubin 0.9 mg/dL (0.2-1.3); Total Protein 6.8 g/dL (6.3-8.2)
[2024-01-01 09:01] LABS: INR 0.9 (<1.2); Prothrombin Time 10.2 sec (10.0-12.5)
[2024-01-01 09:07] LABS: AST 39 U/L (17-59); Alkaline Phosphatase 48 U/L (38-126); Potassium 4.7 mmol/L (3.5-5.1)
--- NOTE | 2024-01-01 09:35 | XR ---
EXAMINATION TYPE: XR chest 2V DATE OF EXAM: 01/01/2024 9:19 AM COMPARISON: None. CLINICAL INDICATION: Male, 58 years old with history of Chest Pain, TECHNIQUE: XR chest 2V view(s) obtained. FINDINGS: The heart size is normal. The pulmonary vasculature is normal. The lungs are clear. IMPRESSION: 1. No acute pulmonary process. [facility], , 01/01/2024 9:32 AM
--- NOTE | 2024-01-01 11:02 | CT ---
EXAMINATION TYPE: CT brain wo con CT DLP: 1109.9 mGycm, Automated exposure control for dose reduction was used. DATE OF EXAM: 01/01/2024 9:14 AM COMPARISON: None. CLINICAL INDICATION:Male, 58 years old with history of Neuro Deficit, rt side face and arm numbness TECHNIQUE: Brain: Multiple axial CT images of the brain were obtained without IV contrast. . Coronal and sagitta l reformats reviewed. FINDINGS: Brain: Extra-axial spaces: No abnormal extra-axial fluid collections. Ventricular system: Within normal limits Cerebral parenchyma: No acute intraparenchymal hemorrhage or mass effect. The macias-white junction is well differentiated. Cerebellum: Unremarkable. Mass effect: No evidence of midline shift. Intracranial vasculature: unremarkable Soft tissues: Normal. Calvarium/osseous structures: No depressed skull fracture. Paranasal sinuses and mastoid air cells: Mastoid air cells are clear. Moderate mucosal thickening of the left maxillary sinus. Visualized orbits: Orbital contents are intact. IMPRESSION: 1. No acute intracranial process. 2. Moderate left maxillary sinus mucosal disease. [facility], , 01/01/2024 10:09 AM
[2024-01-01] MEDS ORDERED: NITROGLYCERIN SL TABS 0.4 MG TAB SUBLINGUAL PRN (11:45)
[2024-01-01] MEDS: HEPARIN SOD,PORK IN 0.45% NACL 25,000 UNIT in 0.45% NACL 1 250ML.BAG IV SCH (11:59)
[2024-01-01] MEDS: HEPARIN SODIUM 1,000 UN/ML (10ML VL) IV ONE (12:03)
[2024-01-01] MEDS: NITROGLYCERIN OINT 1 INCH/GM PACKET TOPICAL SCH (12:04)
[2024-01-01] MEDS ORDERED: IPRATROPIUM-ALBUTEROL 3 ML NEB INHALATION PRN (16:12)
--- NOTE | 2024-01-01 16:48 | P.HPIM ---
History of Present Illness H&P Date: 01/01/24 Chief Complaint: Chest pain Patient is a 58-year-old male with a known history of coronary artery disease with stent placement 2 years ago, history of CVA with right-sided weakness, history of TIAs, COPD, hypertension, hyperlipidemia, history of [place] and currently everyday smoker and history of alcohol use disorder presents to ER with complaints of chest pain. Patient states that he started having sharp chest pain when he got out of shower about 30 minutes prior to coming to hospital. Patient also felt right arm achy feeling. He was dizzy and sweaty. EMS was called and patient was given nitroglycerin and aspirin. Symptoms seem to improve with nitro tablet. Patient has been having right arm numbness from the prior CVA. Otherwise patient denied any complaints of fever or chills. No cough or sputum production. No shortness of breath. No palpitations. Denied any leg swelling. Denied any recent illnesses. Chest x-ray showed no acute pulmonary process. CT head showed no acute intracranial process. Moderate left maxillary sinus mucosal disease. EKG showed Laboratory data showed WBC 6.3 hemoglobin 15.1 platelets sinus rhythm with occasional ventricular premature complexes. 297 and MCV 103.0 and D-dimer 0.43 Troponin x 2 negative serum alcohol of less than 10 and magnesium 1.9. BUN 12 and creatinine 0.67. Review of Systems Constitutional: Patient denies any fever or chills . No generalized weakness or weight loss. Abdomen: Patient denied nausea vomiting and diarrhea and abdominal pain. Cardiovascular: Patient denies any chest pain or short of breath no palpitations. Respiratory: patient denied any cough or sputum production. No shortness of breath Neurologic: Patient denied any numbness or tingling. no headache. Musculoskeletal: Patient denies any complaints of joint swelling or deformity. Skin: Negative Psychiatric: Negative Endocrine: No heat or cold intolerance. No recent weight gain. Genitourinary: No dysuria or hematuria. All other 14 point ROS negative except the above Past Medical History Past Medical History: Coronary Artery Disease (CAD), Chest Pain / Angina, COPD, CVA/TIA, Hyperlipidemia, Hypertension, Myocardial Infarction ([place]), Osteoarthritis (OA) Additional Past Medical History / Comment(s): CVA with R sided weakness/oc casionally R leg "gives out" and pt falls, TIAs, arthritis in upper back/chronic pain, Last Myocardial Infarction Date:: 04/2012 History of Any Multi-Drug Resistant Organisms: None Reported Past Surgical History: Heart Catheterization With Stent Additional Past Surgical History / Comment(s): PC Past Anesthesia/Blood Transfusion Reactions: No Reported Reaction Date of Last Stent Placement:: 04/2012 Past Psychological History: No Psychological Hx Reported Smoking Status: Current every day smoker Past Alcohol Use History: Heavy Past Drug Use History: None Reported - Past Family History Father Family Medical History: Cancer Additional Family Medical History / Comment(s): Father had lung cancer and at the age of 67yrs. He was a smoker. Medications and Allergies Home Medications Medication Instructions Recorded Confirmed Type Ibuprofen [Motrin] 800 mg PO TID PRN 03/03/22 01/01/24 History Aspirin 81 mg PO DAILY #30 tab 04/14/23 01/01/24 Rx Clopidogrel [Plavix] 75 mg PO DAILY #30 tab 04/14/23 01/01/24 Rx Escitalopram Oxalate [Lexapro] 10 mg PO DAILY 01/01/24 01/01/24 History Allergies Allergy/AdvReac Type Severity Reaction Status Date / Time No Known Allergies Allergy Verified 01/01/24 12:47 Physical Exam Vitals: Vital Signs Temp Pulse Pulse Resp BP Pulse Ox 01/01/24 11:42 69 16 118/68 98 01/01/24 11:00 68 20 118/71 98 01/01/24 10:00 86 80 20 130/60 98 01/01/24 09:29 75 20 99/69 96 01/01/24 08:23 98.6 F 90 20 139/81 98 Intake and Output 01/01/24 01/01/24 01/01/24 06:59 14:59 22:59 Other: Weight 56.699 kg PHYSICAL EXAMINATION: Patient is lying in the bed comfortably, no acute distress, awake alert and oriented.. HEENT: Normocephalic. Neck is supple. Pupils reactive. Nostrils clear. Oral cavity is moist. Neck reveals no JVD, carotid bruits, or thyromegaly. CHEST EXAMINATION: Trachea is central. Symmetrical expansion. Lung duong clear to auscultation and percussion. CARDIAC: Normal S1, S2 with no gallops. No murmurs ABDOMEN: Soft. Bowel sounds normal. No organomegaly. No abdominal bruits. Extremities: reveal no edema. No clubbing or cyanosis Neurologically awake, alert, oriented x3 able to move all extremities. Minimal right-sided residual weakness Skin: No rash or skin lesions. Psychiatric: Coperative. Nonsuicidal Musculoskeletal: No joint swelling or deformity. Normal range of motion. Results CBC & Chem 7: 01/01/24 08:28 01/01/24 08:28 Labs: Abnormal Lab Results - Last 24 Hours (Table) 01/01/24 Range/Units 08:28 MCV 103.0 H (80.0-100.0) fL Thrombosis Risk Factor Assmnt - DVT/VTE Prophylaxis DVT/VTE Prophylaxis: Pharmacologic Prophylaxis ordered Assessment and Plan Assessment: Chest pain possible unstable angina Coronary artery disease history of stent placement 2 years ago History of CVA with minimal right-sided weakness COPD Ongoing nicotine addiction History of TIA Hypertension Hyperlipidemia History of [place] Current every smoker History of alcohol use disorder GI and DVT prophylaxis Plan: Patient will be continued on telemonitoring. Serial EKG and troponin x 3. Started on heparin drip. Cardiology was consulted. Current with aspirin and lipid panel was ordered. Patient was started on DuoNebs and follow-up closely. Continue with home medications. Time with Patient: Greater than 30
--- NOTE | 2024-01-01 16:52 | CA ---
Transthoracic Echo Report Name: Sudhakar Malone Age: 58 Gender: M : 1965 Exam Date: 01/01/2024 13:58 Exam Location: [facility] Ht (in): 66 Wt (lb): 125 Ordering Physician: Loi Lopez Attending/Referring Phys: [id number], Jessica Project Construction Assistant Manager Mary Yeung, MADISYN Procedure CPT: Indications: Chest Pain Cardiac Hx: 4 stents Technical Quality: Good Contrast 1: Total Dose (mL): Contrast 2: Total Dose (mL): MEASUREMENTS (Male / Female) Normal Values 2D ECHO LV Diastolic Diameter PLAX 4.2 cm 4.2 - 5.9 / 3.9 - 5.3 cm LV Systolic Diameter PLAX 3.2 cm IVS Diastolic Thickness 0.9 cm 0.6 - 1.0 / 0.6 - 0.9 cm LVPW Diastolic Thickness 0.9 cm 0.6 - 1.0 / 0.6 - 0.9 cm LV Relative Wall Thickness 0.4 RV Internal Dim ED PLAX 3.1 cm LA Systolic Diameter LX 3.7 cm 3.0 - 4.0 / 2.7 - 3.8 cm LV Diastolic Volume MOD BP 87.0 cm??? 67 - 155 / 56 - 104 cm??? LV Systolic Volume MOD BP 41.0 cm??? 22 - 58 / 19 - 49 cm??? LV Ejection Fraction MOD BP 52.9 % >= 55 % LV Cardiac Index MOD BP 1701.3 cm???/min???m??? LV Diastolic Volume MOD 4C 76.9 cm??? LV Systolic Volume MOD 4C 36.8 cm??? LV Ejection Fraction MOD 4C 52.1 % LV Cardiac Index MOD 4C 1484.2 cm???/min???m??? LV Diastolic Length 4C 7.6 cm LV Systolic Length 4C 6.3 cm LV Diastolic Volume MOD 2C 79.2 cm??? LV Systolic Volume MOD 2C 34.7 cm??? LV Ejection Fraction MOD 2C 56.2 % LV Cardiac Index MOD 2C 1648.1 cm???/min???m??? LV Diastolic Length 2C 8.1 cm LV Systolic Length 2C 6.4 cm M-MODE Aortic Root Diameter MM 3.6 cm AV Cusp Separation MM 2.0 cm DOPPLER AV Peak Velocity 137.5 cm/s AV Peak Gradient 7.6 mmHg AV Mean Velocity 100.0 cm/s AV Mean Gradient 4.5 mmHg AV Velocity Time Integral 31.8 cm Mitral E Point Velocity 79.4 cm/s Mitral A Point Velocity 122.5 cm/s Mitral E to A Ratio 0.6 MV Deceleration Time 174.4 ms MV E' Velocity 4.4 cm/s Mitral E to MV E' Ratio 18.0 FINDINGS Left Ventricle Left ventricular ejection fraction is estimated at 45-50 %. Left ventricular cavity size normal. Left ventricular wall thickness normal. No obvious regional wall motion abnormalities. Right Ventricle Normal right ventricular size and function. Unable to estimate the right ventricular systolic pressure. Right Atrium Normal right atrial size. No right atrial thrombus or mass seen. Left Atrium Normal left atrial size. No left atrial thrombus or mass present. Mitral Valve Structurally normal mitral valve. No mitral stenosis, regurgitation or prolapse. Aortic Valve Bicuspid aortic valve. No aortic stenosis. Trace aortic regurgitation. Tricuspid Valve Structurally normal tricuspid valve. No tricuspid stenosis, regurgitation or prolapse. Pulmonic Valve Pulmonic valve not well visualized. No pulmonic regurgitation. Pericardium No pericardial or pleural effusion. Aorta Normal size aortic root and proximal ascending aorta. CONCLUSIONS Mild LV systolic dysfunction with an ejection fraction of 45% Previewed by: Dr. Damon Chandler MD (Electronically Signed) Final Date: 01 January 2024 16:51
[2024-01-01] MEDS: HEPARIN SODIUM 1,000 UN/ML (10ML VL) IV PRN (19:34)
[2024-01-01] MEDS: FAMOTIDINE 20 MG TAB PO SCH (21:30)
[2024-01-02] MEDS: ESCITALOPRAM 10 MG TAB PO SCH (08:37)
[2024-01-02] MEDS: ASPIRIN 325 MG TAB PO SCH (08:37)
[2024-01-02] MEDS: CLOPIDOGREL 75 MG TAB PO SCH (08:37)
[2024-01-02 10:18] LABS: Platelet Count 246 X 10*3/uL (140-440)
[2024-01-02 13:08] LABS: Chol/HDL Ratio 1.84 Ratio; LDL Cholesterol,Calculated 62.3 mg/dL (0.0-131.0); VLDL Calculation 9.58 mg/dL (5.00-40.00)
--- NOTE | 2024-01-02 13:20 | P.CRDCN ---
History of Present Illness Consult date: 01/02/24 History of present illness: HISTORY OF PRESENTING ILLNESS 58-year-old male with prior history of CAD status post PCI 2 years ago, history of CVA, right-sided weakness, history of TIA, COPD, hypertension dyslipidemia presented to the hospital because of concerns of substernal chest pressure. He describes his pain as sharp. This was not prior related to activity or rest. Symptoms did improve with nitroglycerin. [facility] have not seen any talent acquisition operations manager in last 1 year. His ECG does not show any acute ST or T wave changes that are diagnostic for ischemia His troponins are not elevated x 3 he was rule out of acute coronary syndrome. Hemoglobin is 15.1 He still smokes 1 pack/day. REVIEW OF SYSTEMS 14 point review of system is negative except what is mentioned above in HPI. PHYSICAL EXAMINATION Vital signs reviewed. Head: Normocephalic. Eyes: Sclerae nonicteric. Neck: Brisk carotid upstroke, no jugular venous distention. Lungs: Clear to auscultation. Heart: Regular rate and rhythm, S1-S2, no S3, no murmur or rub. Abdomen: Soft nontender, positive bowel sounds. Extremities: No edema, intact distal pulses. Neuro: Alert, oritented, no focal deficits. Detailed neuro exam was not performed. ASSESSMENT Chronic HFmrEF, not in exacerbation, likely ischemic cardiomyopathy CAD status post PCI 2 years ago History of CVA and TIA COPD Active smoker 1 pack/day Echocardiogram showed an EF of 45%. PLAN Continue aspirin, Plavix, Lipitor 40 mg daily Losartan 12.5 mg daily for cardiomyopathy. Asked to maintain blood pressure log at home Transdermal patches, stop smoking Follow-up outpatient with cardiology for an outpatient stress test. Due to DC home. Ruled out of ACS Rahat Loja MD, FACC, RPVI Thank you for allowing [facility] to participate in this patient's care. Feel free to reach out in case of any followup questions. Past Medical History Past Medical History: Coronary Artery Disease (CAD), Chest Pain / Angina, COPD, CVA/TIA, Hyperlipidemia, Hypertension, Myocardial Infarction ([place]), Osteoarthritis (OA) Additional Past Medical History / Comment(s): CVA with R sided weakness/occasionally R leg "gives out" and pt falls, TIAs, arthritis in upper back/chronic pain, Last Myocardial Infarction Date:: 04/2012 History of Any Multi-Drug Resistant Organisms: None Reported Past Surgical History: Heart Catheterization With Stent Additional Past Surgical History / Comment(s): PC Past Anesthesia/Blood Transfusion Reactions: No Reported Reaction Date of Last Stent Placement:: 04/2012 Past Psychological History: No Psychological Hx Reported Smoking Status: Current every day smoker Past Alcohol Use History: Heavy Past Drug Use History: None Reported - Past Family History Father Family Medical History: Cancer Additional Family Medical History / Comment(s): Father had lung cancer and at the age of 67yrs. He was a smoker. Medications and Allergies Home Medications Medication Instructions Recorded Confirmed Type Aspirin 81 mg PO DAILY #30 tab 04/14/23 01/01/24 Rx Clopidogrel [Plavix] 75 mg PO DAILY #30 tab 04/14/23 01/01/24 Rx Escitalopram Oxalate [Lexapro] 10 mg PO DAILY 01/01/24 01/01/24 History Atorvastatin [Lipitor] 40 mg PO HS #30 tab 01/02/24 Rx Losartan [Cozaar] 12.5 mg PO DAILY #30 tab 01/02/24 Rx Nicotine 21Mg/24Hr Patch [Habitrol] 1 patch TRANSDERM DAILY #30 patch 01/02/24 Rx Allergies Allergy/AdvReac Type Severity Reaction Status Date / Time No Known Allergies Allergy Verified 01/01/24 12:47 Physical Exam Vitals: Vital Signs Pulse Resp BP Pulse Ox 01/02/24 05:11 52 L 16 108/73 98 01/02/24 00:12 58 L 16 118/71 01/01/24 17:35 66 16 118/71 97 01/01/24 17:00 65 16 120/70 98 01/01/24 16:00 88 16 118/71 98 Intake and Output 01/01/24 01/02/24 01/02/24 22:59 06:59 14:59 Intake Total 51.37 47.345 50.605 Balance 51.37 47.345 50.605 Intake: Intake, IV Titration 51.37 47.345 50.605 Amount Heparin Sod,Pork in 0.45% 51.37 47.345 50.605 NaCl 25,000 unit In 0.45 % NaCl 1 250ml.bag @ 12 UNITS/KG/HR 6.804 mls/hr IV .Q24H [facility] Rx#: [id number] Results 01/02/24 05:52 01/01/24 08:28 Cardiac Enzymes 01/01/24 Range/Units 15:48 Troponin I <0.012 (0.000-0.034) ng/mL Coagulation 01/01/24 01/01/24 01/02/24 Range/Units 18:37 23:47 05:52 APTT 32.3 H 47.0 H 32.1 H (22.0-30.0) sec Lipids 01/02/24 Range/Units 05:52 Triglycerides 47.90 (0.00-149.00) mg/dL Cholesterol 157.00 (0.00-200.00) mg/dL HDL Cholesterol 85.10 H (40.00-60.00) mg/dL Cholesterol/HDL Ratio 1.84 Ratio CBC 01/02/24 Range/Units 05:52 Plt Count 246 (140-440) X 10*3/uL Current Medications Generic Name Dose Route Start Last Admin Trade Name Freq PRN Reason Stop Dose Admin Albuterol/Ipratropium 3 ml 01/01/24 16:12 Ipratropium-Albuterol 3 Ml Neb INHALATION RT-QID PRN Shortness Of Breath Or Wheezing Aspirin 325 mg 01/02/24 09:00 01/02/24 08:37 Aspirin 325 Mg Tab PO 325 mg DAILY [facility] Administration Atorvastatin Calcium 40 mg 01/02/24 21:00 Atorvastatin 40 Mg Tab PO HS [facility] Clopidogrel Bisulfate 75 mg 01/02/24 09:00 01/02/24 08:37 Clopidogrel 75 Mg Tab PO 75 mg DAILY [facility] Administration Escitalopram Oxalate 10 mg 01/02/24 09:00 01/02/24 08:37 Escitalopram 10 Mg Tab PO 10 mg DAILY [facility] Administration Famotidine 20 mg 01/01/24 21:00 01/01/24 21:30 Famotidine 20 Mg Tab PO 20 mg HS [facility] Administration Heparin Sodium (Porcine) 0 unit 01/01/24 11:45 01/02/24 07:05 Heparin Sodium 1,000 Un/Ml (10ml Vl) IV 2,834.95 unit Q6HR PRN Administration Low PTT Protocol Heparin Sodium/Sodium Chloride 250 mls @ 6.804 mls/hr 01/01/24 11:45 01/02/24 07:03 25,000 unit/ Sodium Chloride IV 18 units/kg/hr .Q24H [facility] 10.206 mls/hr Titration Protocol 12 UNITS/KG/HR Losartan Potassium 12.5 mg 01/02/24 13:00 Losartan 25 Mg Tab PO DAILY [facility] Nicotine 1 patch 01/02/24 13:00 Nicotine 21mg/24hr Patch TRANSDERM DAILY [facility] Nitroglycerin 0.4 mg 01/01/24 11:45 Nitroglycerin Sl Tabs 0.4 Mg Tab SUBLINGUAL Q5M PRN Chest Pain Nitroglycerin 1 inch 01/01/24 12:00 01/02/24 12:39 Nitroglycerin Oint 1 Inch/Gm Packet TOPICAL 1 inch Q6HR [facility] Administration Intake and Output 01/01/24 01/02/24 01/02/24 22:59 06:59 14:59 Intake Total 51.37 47.345 50.605 Balance 51.37 47.345 50.605 Intake: Intake, IV Titration 51.37 47.345 50.605 Amount Heparin Sod,Pork in 0.45% 51.37 47.345 50.605 NaCl 25,000 unit In 0.45 % NaCl 1 250ml.bag @ 12 UNITS/KG/HR 6.804 mls/hr IV .Q24H [facility] Rx#: [id number] 01/02/24 05:52 01/01/24 08:28
--- NOTE | 2024-01-02 13:21 | P.DS ---
Providers Date of admission: 01/01/24 12:02 Expected date of discharge: 01/02/24 Attending physician: Izaiah Olmos Consults: 01/01/24 11:45 Consult Physician Urgent Consulting Provider: Rahat Loja Consult Reason/Comments: chest pain Do you want consulting provider notified?: Yes Primary care physician: [facility] Course: Discharge diagnoses; Chest pain possible unstable angina Coronary artery disease history of stent placement 2 years ago History of CVA with minimal right-sided weakness COPD Ongoing nicotine addiction History of TIA Hypertension Hyperlipidemia History of [place] Current every smoker Hospital course; Patient is a 58-year-old male with a known history of coronary artery disease with stent placement 2 years ago, history of CVA with right-sided weakness, history of TIAs, COPD, hypertension, hyperlipidemia, history of [place] and currently everyday smoker and history of alcohol use disorder presents to ER with complaints of chest pain. Patient states that he started having sharp chest pain when he got out of shower about 30 minutes prior to coming to hospital. Patient also felt right arm achy feeling. He was dizzy and sweaty. EMS was chance led and patient was given nitroglycerin and aspirin. Symptoms seem to improve with nitro tablet. Patient has been having right arm numbness from the prior CVA. Otherwise patient denied any complaints of fever or chills. No cough or sputum production. No shortness of breath. No palpitations. Denied any leg swelling. Denied any recent illnesses. Chest x-ray showed no acute pulmonary process. CT head showed no acute intracranial process. Moderate left maxillary sinus mucosal disease. EKG showed Laboratory data showed WBC 6.3 hemoglobin 15.1 platelets sinus rhythm with occasional ventricular premature complexes. 297 and MCV 103.0 and D-dimer 0.43 Troponin x 2 negative serum alcohol of less than 10 and magnesium 1.9. BUN 12 and creatinine 0.67. 01/01. Patient seen and examined. Patient was evaluated by cardiology, troponins remain flat, cardiology recommended starting patient on losartan and Lipitor. Recommended outpatient follow-up PHYSICAL EXAMINATION: GENERAL: The patient is alert and oriented x3, not in any acute distress. Well developed, well nourished. HEENT: Pupils are round and equally reacting to light. EOMI. No scleral icterus. No conjunctival pallor. Normocephalic, atraumatic. No pharyngeal erythema. No thyromegaly. CARDIOVASCULAR: S1 and S2 present. No murmurs, rubs, or gallops. PULMONARY: Chest is clear to auscultation, no wheezing or crackles. ABDOMEN: Soft, nontender, nondistended, normoactive bowel sounds. No palpable organomegaly. MUSCULOSKELETAL: No joint swelling or deformity. EXTREMITIES: No cyanosis, clubbing, or pedal edema. NEUROLOGICAL: Gross neurological examination did not reveal any focal deficits. SKIN: No rashes. Dictation was produced using [employer] dictation software. please excuse any grammatical, word or spelling errors. Patient Condition at Discharge: Fair Plan - Discharge Summary New Discharge Prescriptions: New Losartan [Cozaar] 12.5 mg PO DAILY #30 tab Atorvastatin [Lipitor] 40 mg PO HS #30 tab Nicotine 21Mg/24Hr Patch [Habitrol] 1 patch TRANSDERM DAILY #30 patch Continue Aspirin 81 mg PO DAILY #30 tab Clopidogrel [Plavix] 75 mg PO DAILY #30 tab Escitalopram Oxalate [Lexapro] 10 mg PO DAILY Discontinued Ibuprofen [Motrin] 800 mg PO TID PRN PRN Reason: Pain Discharge Medication List Aspirin 81 mg PO DAILY #30 tab 04/14/23 [Rx] Clopidogrel [Plavix] 75 mg PO DAILY #30 tab 04/14/23 [Rx] Escitalopram Oxalate [Lexapro] 10 mg PO DAILY 01/01/24 [History] Atorvastatin [Lipitor] 40 mg PO HS #30 tab 01/02/24 [Rx] Losartan [Cozaar] 12.5 mg PO DAILY #30 tab 01/02/24 [Rx] Nicotine 21Mg/24Hr Patch [Habitrol] 1 patch TRANSDERM DAILY #30 patch 01/02/24 [Rx] Follow up Appointment(s)/Referral(s): Luis Bonilla MD [Primary Care Provider] - 1-2 days Discharge Disposition: HOME SELF-CARE
[2024-01-02] MEDS: LOSARTAN 25 MG TAB PO SCH (13:41)
[2024-01-02] MEDS: NICOTINE 21MG/24HR PATCH TRANSDERM SCH (13:42)
[2024-01-02 13:48] VITALS: BP 130/86; PULSE 58; RESP 18; TEMP 97.8
[2024-01-02] MEDS ORDERED: ATORVASTATIN 40 MG TAB PO SCH (21:00)
== END 2024-01-02 13:48 | disposition home or self-care (01) ==
LOC: EC 08:20 → 6NMEDSUR 12:02
PROVIDERS: ADMIT Internal Medicine; ATTEND Internal Medicine
DX: R07.9 Chest pain, unspecified (principal); I11.0 Hypertensive heart disease with heart failure; I50.22 Chronic systolic (congestive) heart failure; I25.10 Atherosclerotic heart disease of native coronary artery without angina pectoris; I25.2 Old myocardial infarction; I25.5 Ischemic cardiomyopathy; I69.351 Hemiplegia and hemiparesis following cerebral infarction affecting right dominant side; J44.9 Chronic obstructive pulmonary disease, unspecified; F17.210 Nicotine dependence, cigarettes, uncomplicated; E78.5 Hyperlipidemia, unspecified; Z79.02 Long term (current) use of antithrombotics/antiplatelets; Z79.82 Long term (current) use of aspirin; Z79.899 Other long term (current) drug therapy; Z95.5 Presence of coronary angioplasty implant and graft
CPT/HCPCS: 96376 ×2; 96365; 96366 ×2; 96375; 99285; 36415; 93005; 93306; 85379; 80061; 80053; 83735; 84484; 85025; 85049; 85610; 85730 ×2; 71046; 70450; G0378 ×2; G0480; S4990; J1644 ×3; 80320

== ENCOUNTER 2024-05-29 23:06 | Emergency (ER) | payer MEDICARE, OTHER ==
[2024-05-29] MEDS: PROPARACAINE 0.5% OPHTH DROPS 15 ML BTL BOTH EYES STA (23:46)
[2024-05-29] MEDS: FLUORESCEIN STRIPS 1 MG STRIP BOTH EYES ONE (23:46)
[2024-05-29] MEDS: ERYTHROMYCIN 5 MG/GM OPHTH OINT 1 GM TUBE BOTH EYES STA (23:51)
--- NOTE | 2024-05-30 00:11 | ED ---
Eye Problem HPI - General Chief complaint: Eye Problems Stated complaint: Eye problems Time Seen by Provider: 05/29/24 23:15 Source: EMS Mode of arrival: EMS Limitations: physical limitation - History of Present Illness Initial comments: 59-year-old male presenting with chief complaint of eye redness and burning. This started around 5 or 6:00 tonight. 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 His eyes are very red and watering profusely. He is having no visual loss. No flashes or floaters. They are very irritated and difficult for him to open due to the sensitivity to light no foreign body sensation. - Related Data Home Medications Medication Instructions Recorded Confirmed Escitalopram Oxalate [Lexapro] 10 mg PO DAILY 01/01/24 01/01/24 Previous Rx's Medication Instructions Recorded Aspirin 81 mg PO DAILY #30 tab 04/14/23 Clopidogrel [Plavix] 75 mg PO DAILY #30 tab 04/14/23 Atorvastatin [Lipitor] 40 mg PO HS #30 tab 01/02/24 Losartan [Cozaar] 12.5 mg PO DAILY #30 tab 01/02/24 Nicotine 21Mg/24Hr Patch [Habitrol] 1 patch TRANSDERM DAILY #30 patch 01/02/24 Erythromycin Ophth Oint [Romycin 1 applic BOTH EYES QID #3.5 gm 05/30/24 Ophth Oint] Allergies Allergy/AdvReac Type Severity Reaction Status Date / Time No Known Allergies Allergy Verified 05/29/24 23:14 Review of Systems ROS Statement: Those systems with pertinent positive or pertinent negative responses have been documented in the HPI. ROS Other: All systems not noted in ROS Statement are negative. Past Medical History Past Medical History: Coronary Artery Disease (CAD), Chest Pain / Angina, COPD, CVA/TIA, Hyperlipidemia, Hypertension, Myocardial Infarction ([place]), Osteoarthritis (OA) Additional Past Medical History / Comment(s): CVA with R sided weakness/occasionally R leg "gives out" and pt falls, TIAs, arthritis in upper back/chronic pain, Last Myocardial Infarction Date:: 04/2012 History of Any Multi-Drug Resistant Organisms: None Reported Past Surgical History: Heart Catheterization With Stent Additional Past Surgical History / Comment(s): PC Past Anesthesia/Blood Transfusion Reactions: No Reported Reaction Date of Last Stent Placement:: 04/2012 Past Psychological History: No Psychological Hx Reported Smoking Status: Current every day smoker Past Alcohol Use History: Heavy Past Drug Use History: None Reported - Past Family History Father Family Medical History: Cancer Additional Family Medical History / Comment(s): Father had lung cancer and at the age of 67yrs. He was a smoker. General Exam Limitations: physical limitation General appearance: alert, in no apparent distress Head exam: Present: atraumatic, normocephalic, normal inspection Expanded Sclera/Conjunctival: Injection: Bilateral (Scleral injection and profuse w atering) Visual acuity (R) = 20/: 100 Visual acuity (L) = 20/: 70 Neck exam: Present: normal inspection. Absent: meningismus Respiratory exam: Absent: respiratory distress Cardiovascular Exam: Present: regular rate Neurological exam: Present: alert, oriented X3 Psychiatric exam: Present: normal affect, normal mood Skin exam: Present: warm, dry, normal color Course Vital Signs 05/29/24 23:08 Temperature 98.0 F Pulse Rate 71 Respiratory 20 Rate Blood Pressure 114/74 O2 Sat by Pulse 95 Oximetry Medical Decision Making - Medical Decision Making Was pt. sent in by a medical professional or institution (, PA, AWS DEVELOPER, urgent care, hospital, or fci...) When possible be specific @ -No Did you speak to anyone other than the patient for history (EMS, parent, family, police, friend...)? What history was obtained from this source @ -No Did you review nursing and triage notes (agree or disagree)? Why? @ -I reviewed and agree with nursing and triage notes Were old charts reviewed (outside hosp., previous admission, EMS record, old EKG, old radiological studies, urgent care reports/EKG's, fci records)? Report findings @ -No old charts were reviewed Differential Diagnosis (chest pain, altered mental status, abdominal pain women, abdominal pain men, vaginal bleeding, weakness, fever, dyspnea, syncope, headache, dizziness, GI bleed, back pain, seizure, CVA, palpatations, mental health, musculoskeletal)? @ -Differential includes corneal flash burn, corneal ulcer, corneal abrasion, foreign body, conjunctivitis, not an all-inclusive list EKG interpreted by me (3pts min.). @ -As above X-rays interpreted by me (1pt min.). @ -None done CT interpreted by me (1pt min.). @ -None done U/S interpreted by me (1pt. min.). @ -None done What testing was considered but not performed or refused? (CT, X-rays, U/S, labs)? Why? @ -None What meds were considered but not given or refused? Why? @ -None Did you discuss the management of the patient with other professionals (professionals i.e. DrJoel, PA, AWS DEVELOPER, lab, RT, psych nurse, social science analyst, silk screen cutter, teacher, dog license officer supervisor, insurance case manager)? Give summary @ -No Was smoking cessation discussed for >3mins.? @ -No Was critical care preformed (if so, how long)? @ -No Were there social determinants of health that impacted care today? How? (Homelessness, low income, unemployed, alcoholism, drug addiction, transportation, low edu. Level, literacy, decrease access to med. care, prison, rehab)? @ -No Was there de-escalation of care discussed even if they declined (Discuss DNR or withdrawal of care, Hospice)? DNR status @ -No What co-morbidities impacted this encounter? (DM, HTN, Smoking, COPD, CAD, Can cer, CVA, ARF, Chemo, Hep., AIDS, mental health diagnosis, sleep apnea, morbid obesity)? @ -None Was patient admitted / discharged? Hospital course, mention meds given and route, prescriptions, significant lab abnormalities, going to OR and other pertinent info. @ -59-year-old male presenting with chief complaint of bilateral eye irritation and redness. 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 History and physical examination are conducted. Patient has complete relief of symptoms after applying proparacaine eyedrops. No evidence of uptake on fluorescein exam. Patient is started on erythromycin ointment and ketorolac eyedrops for home. Follow-up with ophthalmology. Follow-up with PCP. Report back to ER with any new or worsening symptoms. Discussed return parameters and answered all questions. Patient conveyed verbal understanding and agreed to the plan. I discussed this case in detail with my attending Dr. Day Undiagnosed new problem with uncertain prognosis? @ -No Drug Therapy requiring intensive monitoring for toxicity (Heparin, Nitro, Insulin, Cardizem)? @ -No Were any procedures done? @ -No Diagnosis/symptom? @ -Corneal flash burn Acute, or Chronic, or Acute on Chronic? @ -Acute Uncomplicated (without systemic symptoms) or Complicated (systemic symptoms)? @ -Uncomplicated Side effects of treatment? @ -No Exacerbation, Progression, or Severe Exacerbation? @ -No Poses a threat to life or bodily function? How? (Chest pain, [place], [place], pneumonia, PE, COPD, DKA, ARF, appy, cholecystitis, CVA, Diverticulitis, Homicidal, Suicidal, threat to staff... and all critical care pts) @ -Low likelihood Disposition Clinical Impression: Corneal burn Disposition: HOME SELF-CARE Condition: Good Instructions (If sedation given, give patient instructions): Corneal Flash [place] (ED) Additional Instructions: Follow-up with ophthalmology. Report back to ER with any new or worsening symptoms. Apply erythromycin eye ointment 4 times daily for 5 days to prevent infection. Apply 1 ketorolac eyedrop to each eye up to 3 times a day as needed for pain Prescriptions: Erythromycin Ophth Oint [Romycin Ophth Oint] 1 applic BOTH EYES QID #3.5 gm Is patient prescribed a controlled substance at d/c from ED?: No Referrals: Luis Bonilla MD [Primary Care Provider] - 1-2 days Makeda Hollingsworth MD [STAFF PHYSICIAN] - 1-2 days Time of Disposition: 00:11
[2024-05-30] MEDS: KETOROLAC 0.5% OPHTH DROPS 5 ML BTL BOTH EYES STA (00:29)
[2024-05-30 00:55] VITALS: BP 115/74; PULSE 64; RESP 16; TEMP 98.8
== END 2024-05-30 00:30 | disposition home or self-care (01) ==
LOC: EC 23:06
DX: T26.12XA Burn of cornea and conjunctival sac, left eye, initial encounter (principal); T26.11XA Burn of cornea and conjunctival sac, right eye, initial encounter; F17.200 Nicotine dependence, unspecified, uncomplicated; W89.0XXA Exposure to welding light (arc), initial encounter
CPT/HCPCS: 99284

== ENCOUNTER 2024-08-03 08:41 | Emergency (ER) | payer MEDICARE, OTHER ==
--- NOTE | 2024-08-03 08:43 | ED ---
Chest Pain HPI - General Stated Complaint: chest pain Time Seen by Provider: 08/03/24 08:43 Source: patient, EMS, RN notes reviewed Mode of arrival: EMS Limitations: no limitations - History of Present Illness Initial Comments: 59-year-old male presents emergency department complaint of chest pain. Patient states that it started after he got shower. Patient states he had centralized left-sided chest pain does a history of cardiac stents along with hypertension hyperlipidemia and current smoker. Patient states symptoms have resolved. Patient denies any fevers or chills no current shortness of breath no nausea vomiting no back pain - Related Data Home Medications Medication Instructions Recorded Confirmed Escitalopram Oxalate [Lexapro] 10 mg PO DAILY 01/01/24 01/01/24 Previous Rx's Medication Instructions Recorded Aspirin 81 mg PO DAILY #30 tab 04/14/23 Clopidogrel [Plavix] 75 mg PO DAILY #30 tab 04/14/23 Atorvastatin [Lipitor] 40 mg PO HS #30 tab 01/02/24 Losartan [Cozaar] 12.5 mg PO DAILY #30 tab 01/02/24 Nicotine 21Mg/24Hr Patch [Habitrol] 1 patch TRANSDERM DAILY #30 patch 01/02/24 Erythromycin Ophth Oint [Romycin 1 applic BOTH EYES QID #3.5 gm 05/30/24 Ophth Oint] Allergies Allergy/AdvReac Type Severity Reaction Status Date / Time No Known Allergies Allergy Verified 05/29/24 23:14 Review of Systems ROS Statement: Those systems with pertinent positive or pertinent negative responses have been documented in the HPI. ROS Other: All systems not noted in ROS Statement are negative. EKG Findings - EKG Comments: EKG Findings:: EKG performed at 8: 51 sinus rhythm rate of 63 NV 155 QRS 93 QT/QTc 406/414 - EKG Results: EKG: interpreted by SHARAD Past Medical History Past Medical History: Coronary Artery Disease (CAD), Chest Pain / Angina, COPD, CVA/TIA, Hyperlipidemia, Hypertension, Myocardial Infarction ([place]), Osteoart hritis (OA) Additional Past Medical History / Comment(s): CVA with R sided weakness/occasionally R leg "gives out" and pt falls, TIAs, arthritis in upper back/chronic pain, Last Myocardial Infarction Date:: 04/2012 History of Any Multi-Drug Resistant Organisms: None Reported Past Surgical History: Heart Catheterization With Stent Additional Past Surgical History / Comment(s): PC Past Anesthesia/Blood Transfusion Reactions: No Reported Reaction Date of Last Stent Placement:: 04/2012 Past Psychological History: No Psychological Hx Reported Smoking Status: Current every day smoker Past Alcohol Use History: Heavy Past Drug Use History: None Reported - Past Family History Father Family Medical History: Cancer Additional Family Medical History / Comment(s): Father had lung cancer and at the age of 67yrs. He was a smoker. General Exam Limitations: no limitations General appearance: alert, in no apparent distress Head exam: Present: atraumatic, normocephalic, normal inspection Eye exam: Present: normal appearance, PERRL, EOMI. Absent: scleral icterus, conjunctival injection, periorbital swelling ENT exam: Present: normal exam, normal oropharynx, mucous membranes moist Neck exam: Present: normal inspection, full ROM. Absent: tenderness, meningismus, lymphadenopathy Respiratory exam: Present: normal lung sounds bilaterally. Absent: respiratory distress, wheezes, rales, rhonchi, stridor Cardiovascular Exam: Present: regular rate, normal rhythm, normal heart sounds. Absent: systolic murmur, diastolic murmur, rubs, gallop, clicks GI/Abdominal exam: Present: soft, normal bowel sounds. Absent: distended, tenderness, guarding, rebound, rigid Course Vital Signs 08/03/24 08/03/24 08:42 10:00 Temperature 98 F Pulse Rate 66 62 Respiratory 16 18 Rate Blood Pressure 124/83 133/84 O2 Sat by Pulse 98 98 Oximetry Chest Pain MDM - MDM Was pt. sent in by a medical professional or institution (, PA, REMOTE RUBY ON RAILS DEVELOPER, urgent care, hospital, or jail...) When possible be specific @ -No Did you speak to anyone other than the patient for history (EMS, parent, family, police, friend...)? What history was obtained from this source @ -No Did you review nursing and triage notes (agree or disagree)? Why? @ -I reviewed and agree with nursing and triage notes Were old charts reviewed (outside hosp., previous admission, EMS record, old EKG, old radiological studies, urgent care reports/EKG's, jail records)? Report findings @ -No old charts were reviewed Differential Diagnosis (chest pain, altered mental status, abdominal pain women, abdominal pain men, vaginal bleeding, weakness, fever, dyspnea, syncope, headache, dizziness, GI bleed, back pain, seizure, CVA, palpatations, mental health, musculoskeletal)? @ -Differential Chest Pain: Stable Angina, Unstable Angina, STEMI, NSTEMI Aortic Dissection, Pneumothorax, Musculoskeletal, Esophageal Spasm GERD, Cholecystitis, Pancreatitis, Zoster, this is not meant to be an all-inclusive list. EKG interpreted by me (3pts min.). @ -As above X-rays interpreted by me (1pt min.). @ -Chest x-ray showed no acute cardiopulmonary process CT interpreted by me (1pt min.). @ -None done U/S interpreted by me (1pt. min.). @ -None done What testing was considered but not performed or refused? (CT, X-rays, U/S, labs)? Why? @ -None What meds were considered but not given or refused? Why? @ -None Did you discuss the management of the patient with other professionals (professionals i.e. , PA, REMOTE RUBY ON RAILS DEVELOPER, lab, RT, psych nurse, aids social worker, patent lawyer, teacher, radio electronics officer, case management assistant)? Give summary @ -No Was smoking cessation discussed for >3mins.? @ -No Was critical care preformed (if so, how long)? @ -No Were there social determinants of health that impacted care today? How? (Homelessness, low income, unemployed, alcoholism, drug addiction, transportation, low edu. Level, literacy, decrease access to med. care, detention, rehab)? @ -No Was there de-escalation of care discussed even if they declined (Discuss DNR or withdrawal of care, Hospice)? DNR status @ -No What co-morbidities impacted this encounter? (DM, HTN, Smoking, COPD, CAD, Cancer, CVA, ARF, Chemo, Hep., AIDS, mental health diagnosis, sleep apnea, morbid obesity)? @ -None Was patient admitted / discharged? Hospital course, mention meds given and [place], prescriptions, significant lab abnormalities, going to OR and other pertinent info. @ -Discharge patient presented for chest, resolved prior to arrival. Patient is currently provide secondary to significant me include . He states he does not states he is asymptomatic and wants follow-up with his stage hand. Patient had a negative workup currently. Undiagnosed new problem with uncertain prognosis? @ -No Drug Therapy requiring intensive monitoring for toxicity (Heparin, Nitro, Insulin, Cardizem)? @ -No Were any procedures done? @ -No Diagnosis/symptom? @ -Chest pain Acute, or Chronic, or Acute on Chronic? @ -Acute Uncomplicated (without systemic symptoms) or Complicated (systemic symptoms)? @ -Complicated Side effects of treatment? @ -No Exacerbation, Progression, or Severe Exacerbation? @ -No Poses a threat to life or bodily function? How? (Chest pain, [place], [place], pneumonia, PE, COPD, DKA, ARF, appy, cholecystitis, CVA, Diverticulitis, Homicidal, Suicidal, threat to staff... and all critical care pts) @ -Yes possible ACS, risk cardiac function Disposition Clinical Impression: Chest pain Disposition: HOME SELF-CARE Condition: Stable Instructions (If sedation given, give patient instructions): Chest Pain (ED) Additional Instructions: Please return to the Emergency Department if symptoms worsen or any other concerns. Is patient prescribed a controlled substance at d/c from ED?: No Referrals: Luis Bonilla MD [Primary Care Provider] - 1-2 days Time of Disposition: 10:54
[2024-08-03 08:45] VITALS: TEMP 98
[2024-08-03 09:11] LABS: Basophils # (A) 0.04 10*3/uL (0.00-0.10); Basophils % (A) 0.5 %; Eosinophils # (A) 0.08 10*3/uL (0.04-0.35); HCT 45.3 % (39.6-50.0); HGB 16.2 g/dL (13.0-17.0); Lymphocytes # (A) 1.42 10*3/uL (0.90-5.00); Lymphocytes % (A) 17.6 %; MCH 34.6 pg (27.0-32.0); MCHC 35.8 g/dL (32.0-37.0); MCV 96.8 fL (80.0-97.0); Monocytes # (A) 0.71 10*3/uL (0.20-1.00); Monocytes % (A) 8.8 %; Neutrophils # (A) 5.79 10*3/uL (1.80-7.70); Neutrophils % (A) 71.7 %; Platelet Count 286 10*3/uL (140-440); RBC 4.68 10*6/uL (4.40-5.60); RDW 14.1 % (11.5-14.5); WBC 8.07 10*3/uL (4.50-10.00)
[2024-08-03 09:33] LABS: INR 0.9 (<1.2); Prothrombin Time 10.3 sec (10.0-12.5)
[2024-08-03 09:36] LABS: ALT 23 U/L (4-49); AST 38 U/L (17-59); African American GFR (CKD) >90 (>60 ml/min/1.73 sqM); Albumin 4.5 g/dL (3.5-5.0); Alkaline Phosphatase 62 U/L (38-126); Anion Gap 7 mmol/L; Blood Urea Nitrogen 9 mg/dL (9-20); Calcium 9.5 mg/dL (8.4-10.2); Carbon Dioxide 28 mmol/L (22-30); Chloride 103 mmol/L (98-107); Glucose 89 mg/dL (74-99); Non-African American GFR(CKD) >90 (>60 ml/min/1.73 sqM); Potassium 4.6 mmol/L (3.5-5.1); Sodium 138 mmol/L (137-145); Total Bilirubin 0.9 mg/dL (0.2-1.3); Total Protein 7.2 g/dL (6.3-8.2)
[2024-08-03 09:45] LABS: NT-Pro-B-Type Natriuretic Pept 47 pg/mL
--- NOTE | 2024-08-03 09:49 | XR ---
EXAMINATION TYPE: XR chest 2V DATE OF EXAM: 08/03/2024 9:40 AM COMPARISON: 01/01/2024 CLINICAL INDICATION: Male, 59 years old with history of Chest Pain, TECHNIQUE: XR chest 2V view(s) obtained. FINDINGS: The heart size is normal. The pulmonary vasculature is normal. The lungs are clear. IMPRESSION: 1. No acute pulmonary process. [facility], , 08/03/2024 9:46 AM
[2024-08-03] MEDS: ASPIRIN 81 MG PO STA (10:23)
[2024-08-03 11:15] VITALS: BP 136/94; PULSE 70; RESP 20
== END 2024-08-03 11:15 | disposition home or self-care (01) ==
LOC: EC 08:41
DX: R07.89 Other chest pain (principal); F17.200 Nicotine dependence, unspecified, uncomplicated
CPT/HCPCS: 36415; 71046; 80053; 83735; 83880; 84484; 85025; 85610; 85730; 93005; 99285